=== PATIENT | female | born 1935 | race Caucasian/White ===

== ENCOUNTER 2016-09-28 08:44 | Inpatient (IN) | payer MEDICARE, OTHER ==
[~2016-09-28] VITALS: Ht 149.9 cm; Wt 55.3 kg
[2016-09-28] MEDS ORDERED: ALBUTEROL FS 2.5 MG/3 ML VIAL.NEB ONE (08:47)
[2016-09-28] MEDS ORDERED: LEVOFLOXACIN 750 MG /D5W 150ML 150 ML IV ONE ×2 (08:49→09:00)
[2016-09-28] MEDS ORDERED: IV SET PRIMARY PUMP SET 1 EA INFUS.SET MC ONE ×3 (08:49→10:27)
--- NOTE | 2016-09-28 08:54 | NUR ---
CALLED [facility] FOR [facility]
[2016-09-28] MEDS ORDERED: ALBUTEROL FS 2.5 MG/3 ML VIAL.NEB CONTNEB ONE (09:00)
[2016-09-28] MEDS ORDERED: VANCOMYCIN 1 GM in IV D5W 250 ML IV ONE (09:00)
--- NOTE | 2016-09-28 09:00 | NUR ---
PT REC'D TO ER C/O SOB VIA EMS RT AT BEDSIDE NON REBR APPLIED 02 SATS RA 96%. RESP 24. IV RT WRIST PRESENT 24G FLUSHED HEPLOCKED . LEFT AC 20G LABS DRAWNSENT TO LAB BLOOD CULTURES DRAWNS UA IN OUT CATH DONE SENT TO LAB
--- NOTE | 2016-09-28 09:15 | NUR ---
URINE SAMPLE SENT TO LAB
[2016-09-28 09:16] LABS: HEMATOCRIT 30 % (33-45); HEMOGLOBIN 9.8 g/dL (11.5-14.8); LYMPHOCYTES # (AUTO) 0.5 /CMM (0.8-4.8); MEAN CORPUSCULAR HEMOGLOBIN 32 PG (26.0-33.0); MEAN CORPUSCULAR HGB CONC 33 g/dl (31.0-36.0); MEAN CORPUSCULAR VOLUME 97 fL (82-100); MONOCYTES # (AUTO) 0.2 /CMM (0.1-1.30); MONOCYTES % (AUTO) 1.2 % (2.0-12.0); NEUTROPHILS # (AUTO) 12.2 /CMM (1.8-8.9); NEUTROPHILS % (AUTO) 94.8 % (43.0-81.0); PLATELET COUNT (AUTO) 158 /CMM (150-450); RDW COEFFICIENT OF VARIATION 13.5 (11.5-15.0); RED BLOOD CELL COUNT(AUTO) 3.08 MIL/uL (4.0-5.2); WHITE BLOOD COUNT (AUTO) 12.9 K/uL (4.3-11.0)
--- NOTE | 2016-09-28 09:16 | NUR ---
GREEN TIRE INSPECTOR AT BS
[2016-09-28] MEDS ORDERED: IV NS 0.9% 1,000 ML ONE (09:25)
--- NOTE | 2016-09-28 09:27 | NUR ---
PT GIVEN MEDS PER MD ORDER
[2016-09-28] MEDS ORDERED: IV NS 0.9% 1,000 ML BAG IV ONE (09:30)
[2016-09-28 09:36] LABS: TROPONIN I 0.328 ng/mL (0.00-0.056)
[2016-09-28] MEDS ORDERED: HYDR-552 PO (09:39)
[2016-09-28] MEDS ORDERED: BISA10SU8 RC (09:39)
[2016-09-28] MEDS ORDERED: MIRT15TA PO (09:39)
[2016-09-28] MEDS ORDERED: NA P133E RC (09:39)
[2016-09-28] MEDS ORDERED: CLON0.1T PO (09:39)
[2016-09-28] MEDS ORDERED: LISI10TA5 PO (09:39)
[2016-09-28] MEDS ORDERED: ACID1TAB12 PO (09:39)
[2016-09-28] MEDS ORDERED: METO25TA6 PO (09:39)
[2016-09-28] MEDS ORDERED: ACET-868 PO (09:39)
[2016-09-28] MEDS ORDERED: ALBU1.257 NEB (09:39)
[2016-09-28] MEDS ORDERED: QUET25TA PO (09:39)
[2016-09-28] MEDS ORDERED: TRAM50TA2 PO (09:39)
[2016-09-28] MEDS ORDERED: ASPI81TA2 PO (09:39)
[2016-09-28] MEDS ORDERED: MAGN400O6 PO (09:39)
[2016-09-28] MEDS ORDERED: PANT40TA2 PO (09:39)
[2016-09-28] MEDS ORDERED: SIMV40TA5 PO (09:39)
[2016-09-28 09:41] LABS: CALCIUM, SERUM 8.6 mg/dL (8.5-10.1); CARBON DIOXIDE 31 mmol/L (21-32); CHLORIDE 110 mmol/L (98-107); CREATININE 0.7 mg/dL (0.6-1.3); GLUCOSE 157 mg/dL (74-106); SODIUM SERUM 149 mmol/L (136-145); UREA NITROGEN, BLOOD 13 mg/dL (7-18)
[2016-09-28 09:42] LABS: POTASSIUM 2.4 mmol/L (3.5-5.1)
--- NOTE | 2016-09-28 09:45 | NUR ---
K 2.4 NOTIFIED
--- NOTE | 2016-09-28 09:50 | NUR ---
PAGED DR MARY ALEXANDER
[2016-09-28 10:16] LABS: B-TYPE NATRIURETIC PEPTIDE 31026 PG/ML (0-125)
[2016-09-28] MEDS ORDERED: POTASSIUM CL. PREMIX PERIPHER. 200 ML ONE (10:27)
[2016-09-28] MEDS ORDERED: POTASSIUM CHLORIDE 10 MEQ/50 ML PREMIXED IVPB FOR PERIPHERAL LINE IV ONE (10:30)
--- NOTE | 2016-09-28 10:39 | NUR ---
VANCO AND KCL 10 50 ML INFUSING TO THE FLOOR VSS PT STABLE VERY PLEASANT
--- NOTE | 2016-09-28 10:46 | NUR ---
[facility] ENDED SITE GOOD . VSS INFUSING KLC TO FLOOR . REPORT GIVEN TO FLOOR LUNGS STILL LILIANA WHEEZES NOTED . N/C 4L 96%
--- NOTE | 2016-09-28 10:54 | NUR ---
PT SENT TO [facility] STABLE
--- NOTE | 2016-09-28 11:15 | NUR ---
CANOE INSPECTOR FINALHEEL GOUGER NOTE PATIENT IS ALERT AND ORIENTED. VERY CONFUSED, EASILY REDIRECTABLE. NO PAIN AT THIS TIME. NO SOB OR DISTRESS NOTED. CALL LIGHT WITHIN REACH. SAFETY MEASURES IMPLEMENTED. IV INTACT AND PATENT NO REDNESS OR SWELLING NOTED. IV FLUIDS CURRENTLY RUNNING AT THIS TIME. ALL BELONGINGS DOCUMENTED AT BEDSIDE. FIJIAN SPEAKING. CURRENTLY NOTHING BY MOUTH. BED ALARM ON DUE TO FALL RISK. SIDERAILS UP X2, BED LOCKED IN LOWEST POSITION. AWAITING SWALLOW EVAL. TELE MONITOR-SR 81. WILL CONTINUE TO MONITOR
[2016-09-28] MEDS ORDERED: IV D5/0.45 NACL 1,000 ML IV PRN (11:57)
[2016-09-28] MEDS: HYDROCODONE/APAP 5/325MG 1 EACH TABLET PO SCH ×2 (12:00→17:23)
[2016-09-28] MEDS ORDERED: ONDANSETRON HCL/PF 4 MG/2 ML VIAL IVP PRN (12:00)
[2016-09-28] MEDS ORDERED: BISACODYL SUPP (10 MG) 10 MG/SUPP.RECT SUPP.RECT RC PRN ×2 (12:00)
[2016-09-28] MEDS ORDERED: ALBUTEROL HALF STRENGTH 1.25 MG/3 ML VIAL.NEB NEB PRN (12:00)
[2016-09-28] MEDS: ASPIRIN 81 MG TAB.CHEW PO SCH (12:00)
[2016-09-28] MEDS ORDERED: ACETAMINOPHEN 325 MG TABLET PO PRN (12:00)
[2016-09-28] MEDS ORDERED: Z GUARD REMEDY 2 OZ OINT TP PRN (12:00)
[2016-09-28] MEDS: METOPROLOL TARTRATE 25 MG TABLET PO SCH ×2 (12:00→21:00)
[2016-09-28] MEDS ORDERED: VANCOMYCIN 1 GM in IV D5W 250 ML IV SCH (12:00)
[2016-09-28] MEDS: ACIDOPHILUS/BULGARICUS 1 EACH TAB.CHEW PO SCH ×2 (12:00→16:02)
[2016-09-28] MEDS ORDERED: NA PHOS,M-B/NA PHOS,DI-BA 1 EA ENEMA RC PRN (12:00)
[2016-09-28] MEDS: LISINOPRIL (10MG) 10 MG TABLET PO SCH (12:00)
[2016-09-28] MEDS: PANTOPRAZOLE 40 MG TABLET.DR PO SCH (12:00)
[2016-09-28] MEDS ORDERED: CLONIDINE HCL 0.1 MG TABLET PO PRN (12:00)
[2016-09-28] MEDS ORDERED: MAGNESIUM HYDROXIDE 30 ML UDC PO PRN (12:00)
[2016-09-28] MEDS ORDERED: ASPIRIN 81 MG TAB.CHEW PO SCH (12:00)
[2016-09-28] MEDS ORDERED: PANTOPRAZOLE 40 MG TABLET.DR PO SCH (12:00)
[2016-09-28] MEDS ORDERED: MIRTAZAPINE 15 MG TABLET PO SCH (12:00)
[2016-09-28] MEDS ORDERED: ENOXAPARIN SODIUM 40 MG/0.4 ML DISP.SYRIN SQ SCH (12:00)
[2016-09-28] MEDS ORDERED: ACETAMINOPHEN 650 MG/SUPP.RECT RC PRN (12:00)
[2016-09-28] MEDS: POTASSIUM CHLORIDE 20 MEQ TAB.PRT.SR PO SCH ×5 (12:00→16:00)
[2016-09-28] MEDS ORDERED: FEE PK DOSING 1 MIN EA MC ONE (12:18)
[2016-09-28 12:54] LABS: MAGNESIUM 1.5 mg/dL (1.8-2.4); PHOSPHORUS 5.2 mg/dL (2.5-4.9)
[2016-09-28] MEDS ORDERED: PIPERACILLIN /TAZOBACTAM 4.5 G in IV D5W 50 ML IV SCH (13:00)
[2016-09-28 13:46] LABS: THYROID STIMULATING HORMONE 1.01 uIU/mL (0.358-3.74)
[2016-09-28] MEDS: IPRATROPIUM NEB FS 0.5 MG/2.5 ML AMPUL.NEB NEB PRN ×2 (14:17→21:02)
[2016-09-28] MEDS: ALBUTEROL HALF STRENGTH 1.25 MG/3 ML VIAL.NEB NEB SCH ×2 (14:18→21:02)
[2016-09-28] MEDS: PIPERACILLIN /TAZOBACTAM 3.375 G in IV D5W 50 ML IV SCH ×2 (14:27→17:25)
[2016-09-28] MEDS: ENOXAPARIN SODIUM 40 MG/0.4 ML DISP.SYRIN SQ SCH (14:31)
[2016-09-28] MEDS ORDERED: SECONDARY IV SET 1 EA INFUS.SET MC ONE (15:11)
[2016-09-28] MEDS: Magnesium 1GM/D5W 100ML PREMIX 100 ML IV SCH ×2 (15:52→16:45)
[2016-09-28 16:00] VITALS: BP 140/69
[2016-09-28] MEDS: FUROSEMIDE 40 MG/4 ML VIAL IV SCH (17:24)
--- NOTE | 2016-09-28 18:15 | NUR ---
COUNTY AGRICULTURAL AGENT CLOSING NOTE PATIENT IS ALERT AND CONFUSED. NO PAIN AT THIS TIME, NO FACIAL GRIMACING NOTED. SAFETY MEASURES IMPLEMENTED. SIDE RAILS UP x2. BED LOCKED IN LOWEST POSITION. CALL LIGHT WITHIN REACH AT ALL TIMES. ALL DUE MEDICATIONS GIVEN ORDERED. CURRENTLY NPO, IV MEDICATIONS ONLY. IV INTACT AND PATENT NO REDNESS OR SWELLING NOTED. THAI SPEAKING. WILL ENDORSE TO NET WPF DEVELOPER NURSE
[2016-09-28 20:00] VITALS: BP 134/72
[2016-09-28] MEDS ORDERED: METOPROLOL TARTRATE 25 MG TABLET PO SCH (21:00)
[2016-09-28] MEDS: SIMVASTATIN 40 MG TABLET PO SCH (22:00)
[2016-09-28] MEDS ORDERED: SIMVASTATIN 40 MG TABLET PO SCH (22:00)
[2016-09-28] MEDS: QUETIAPINE FUMARATE 25 MG TABLET PO SCH (22:00)
[2016-09-28] MEDS: MIRTAZAPINE 15 MG TABLET PO SCH (22:00)
[2016-09-28] MEDS ORDERED: QUETIAPINE FUMARATE 25 MG TABLET PO SCH (22:00)
[2016-09-28 23:55] VITALS: BP 137/69
[2016-09-29] MEDS: FUROSEMIDE 40 MG/4 ML VIAL IV SCH ×3 (01:13→11:45)
[2016-09-29] MEDS: PIPERACILLIN /TAZOBACTAM 3.375 G in IV D5W 50 ML IV SCH ×5 (01:13→23:45)
[2016-09-29] MEDS: VANCOMYCIN 0.75 GM in IV D5W 250 ML IV SCH ×2 (03:28→20:58)
[2016-09-29 04:37] VITALS: BP 155/78
[2016-09-29] MEDS: HYDROCODONE/APAP 5/325MG 1 EACH TABLET PO SCH ×5 (06:00→23:48)
[2016-09-29 06:46] LABS: EOSINOPHILS % (AUTO) 0.1 % (0.0-6.0); HEMATOCRIT 29 % (33-45); HEMOGLOBIN 9.7 g/dL (11.5-14.8); LYMPHOCYTES # (AUTO) 0.7 /CMM (0.8-4.8); LYMPHOCYTES % (AUTO) 5.8 % (20.0-44.0); MEAN CORPUSCULAR HEMOGLOBIN 33 PG (26.0-33.0); MEAN CORPUSCULAR HGB CONC 33 g/dl (31.0-36.0); MEAN CORPUSCULAR VOLUME 98 fL (82-100); MONOCYTES # (AUTO) 0.4 /CMM (0.1-1.30); MONOCYTES % (AUTO) 3.1 % (2.0-12.0); NEUTROPHILS # (AUTO) 11.6 /CMM (1.8-8.9); PLATELET COUNT (AUTO) 155 /CMM (150-450); RDW COEFFICIENT OF VARIATION 13.6 (11.5-15.0); RED BLOOD CELL COUNT(AUTO) 2.98 MIL/uL (4.0-5.2); WHITE BLOOD COUNT (AUTO) 12.7 K/uL (4.3-11.0)
--- NOTE | 2016-09-29 07:10 | NUR ---
RECEIVED PT LAYING IN BED, ALERT BUT CONFUSED. NO SIGNS OR DISTRESS OR DISCOMFORT. IV ON R WRIST INTACT AND PATENT, SALINE LOCKED. BED IS IN LOW AND LOCKED POSITION, SIDE RAILS UP X2, AND CALL LIGHT IS IN REACH. WILL CONTINUE TO MONITOR.
[2016-09-29 07:12] LABS: ALANINE AMINOTRANSFERASE 21 U/L (12-78); ALBUMIN 3.1 g/dL (3.4-5.0); ALKALINE PHOSPHATASE 50 U/L (46-116); ASPARTATE AMINOTRANSFERASE 26 U/L (15-37); BILIRUBIN,TOTAL 0.7 mg/dL (0.2-1.0); CALCIUM, SERUM 8.6 mg/dL (8.5-10.1); CARBON DIOXIDE 31 mmol/L (21-32); CHLORIDE 109 mmol/L (98-107); CREATININE 0.9 mg/dL (0.6-1.3); GLUCOSE 112 mg/dL (74-106); MAGNESIUM 1.8 mg/dL (1.8-2.4); SODIUM SERUM 148 mmol/L (136-145); TOTAL PROTEIN, SERUM 6.2 g/dL (6.4-8.2); UREA NITROGEN, BLOOD 15 mg/dL (7-18)
[2016-09-29 07:22] LABS: TROPONIN I 0.345 ng/mL (0.00-0.056)
[2016-09-29 07:28] LABS: POTASSIUM 2.3 mmol/L (3.5-5.1)
[2016-09-29 07:29] LABS: CHOLESTEROL 141 mg/dL (<200); HDL CHOLESTEROL 44 mg/dL (40-60); LDL 65 mg/dL (0-99); THYROID STIMULATING HORMONE 1.247 uIU/mL (0.358-3.74); TRIGLYCERIDES 139 mg/dL (30-150)
[2016-09-29 07:30] VITALS: BP 129/72
[2016-09-29] MEDS: PANTOPRAZOLE 40 MG TABLET.DR PO SCH (07:30)
[2016-09-29 08:00] VITALS: BP 129/72
[2016-09-29] MEDS: IPRATROPIUM NEB FS 0.5 MG/2.5 ML AMPUL.NEB NEB PRN (08:03)
[2016-09-29] MEDS: ALBUTEROL HALF STRENGTH 1.25 MG/3 ML VIAL.NEB NEB SCH ×2 (08:03→19:47)
[2016-09-29] MEDS: ASPIRIN 81 MG TAB.CHEW PO SCH (09:00)
[2016-09-29] MEDS: LISINOPRIL (10MG) 10 MG TABLET PO SCH (09:00)
[2016-09-29] MEDS ORDERED: PANTOPRAZOLE 40 MG VIAL IV SCH (09:00)
[2016-09-29] MEDS: ACIDOPHILUS/BULGARICUS 1 EACH TAB.CHEW PO SCH ×2 (09:00→17:30)
[2016-09-29] MEDS: METOPROLOL TARTRATE 25 MG TABLET PO SCH ×2 (09:00→21:02)
[2016-09-29] MEDS ORDERED: ASPIRIN 81 MG TAB.CHEW PO SCH (09:00)
--- NOTE | 2016-09-29 09:08 | NUR ---
LOW POTASSIUM 2.[address] MARY HAY ORDERED TO GIVE 60MEQ IV POTASSIUM AND REPEAT LEVEL.
[2016-09-29] MEDS: ENOXAPARIN SODIUM 40 MG/0.4 ML DISP.SYRIN SQ SCH (09:11)
[2016-09-29] MEDS ORDERED: IV SET PRIMARY PUMP SET 1 EA INFUS.SET MC ONE (09:49)
[2016-09-29] MEDS ORDERED: IV NS 0.9% 250 ML IV ONE ×2 (09:49→23:07)
[2016-09-29] MEDS: POTASSIUM CL. PREMIX PERIPHER. 50 ML IV SCH ×8 (09:58→23:59)
--- NOTE | 2016-09-29 11:25 | NUR ---
WOUND CARE CONSULT: PT PRESENTS WITH INCONTINENCE. PT MOVES ABOUT IN BED. TRAN SCORE CURRENTLY 13. PT ON JALEESA ISOFLEX LOW AIRLOSS BED. ALL SKIN PROTECTION MEASURES IN PLACE. DISCUSSED WITH NURSING STAFF. WILL SEE PRN. BRITTON IN AGREEMENT WITH PLAN OF CARE. Addendum: 09/29/16 at 1127 by GARY CANAS WNDNU Amended: Links added.
--- NOTE | 2016-09-29 11:42 | NUR ---
PT SEEN BY SANDEE ORTEGA RECOMMENDS PUREE DIET WITH THIN LIQUIDS.
[2016-09-29 16:00] VITALS: BP 127/61
--- NOTE | 2016-09-29 19:06 | NUR ---
PT IS IN SEMIFOWLERS POSITION IN BED, AWAKE. PT HAS NO SIGNS OF PAIN OR DISTRESS. IV ON RFA IS PATENT AND INTACT. ALL MEDS WERE GIVEN ORDERED. BED IS IN LOW AND LOCKED POSITION, SIDE RAILS UP X2 AND CALL LIGHT IS IN REACH. WILL ENDORSE TO CUSTOMS AGENT RN FOR CONTINUITY OF CARE.
--- NOTE | 2016-09-29 19:30 | NUR ---
RN NOTES RECEIVED PATIENT IN BED AWAKE, CONFUSED. NO ACUTE DISTRESS NOTED. NO SIGNS OF PAIN NOTED. IV SITE PATENT, INTACT; FLUSHED. ASPIRATION PRECAUTION MAINTAINED. ON LOW BED WITH BILATERAL UPPER SIDE RAILS UP. CALL LIGHT WITHIN EASY REACH. WILL CONTINUE TO MONITOR.
[2016-09-29 20:00] VITALS: BP_SYST 120; BP_SYST 142; BP_DIAS 68; BP_DIAS 74
[2016-09-29] MEDS ORDERED: SECONDARY IV SET 1 EA INFUS.SET MC ONE (20:49)
[2016-09-29] MEDS: SIMVASTATIN 40 MG TABLET PO SCH (21:03)
[2016-09-29] MEDS: MIRTAZAPINE 15 MG TABLET PO SCH (21:03)
[2016-09-29] MEDS: QUETIAPINE FUMARATE 25 MG TABLET PO SCH (21:04)
[2016-09-29] MEDS ORDERED: POTASSIUM CL. PREMIX PERIPHER. 100 ML ONE (22:05)
[2016-09-30] MEDS ORDERED: POTASSIUM CL. PREMIX PERIPHER. 100 ML ONE (00:27)
[2016-09-30] MEDS: POTASSIUM CL. PREMIX PERIPHER. 50 ML IV SCH ×8 (01:04→20:46)
[2016-09-30] MEDS: HYDROCODONE/APAP 5/325MG 1 EACH TABLET PO SCH ×3 (05:10→19:00)
[2016-09-30] MEDS: PIPERACILLIN /TAZOBACTAM 3.375 G in IV D5W 50 ML IV SCH ×3 (05:11→19:00)
--- NOTE | 2016-09-30 06:06 | NUR ---
PATIENT SLEEP, EASILY AROUSABLE. RESPIRATIONS EVEN. NO SIGNS OF PAIN NOTED. DUE MEDS GIVEN WITH NO ASE NOTED. NEEDS ATTENDED. SAFETY PRECAUTIONS AND COMFORT MEASURES IN PLACE. WILL GIVE REPORT TO DAY SHIFT FOR CONTINUITY OF CARE.
[2016-09-30 06:45] LABS: BASOPHILS % (AUTO) 0.3 % (0.0-2.0); EOSINOPHILS % (AUTO) 0.2 % (0.0-6.0); HEMATOCRIT 28 % (33-45); HEMOGLOBIN 9.3 g/dL (11.5-14.8); LYMPHOCYTES # (AUTO) 1.1 /CMM (0.8-4.8); LYMPHOCYTES % (AUTO) 10.1 % (20.0-44.0); MEAN CORPUSCULAR HEMOGLOBIN 32 PG (26.0-33.0); MEAN CORPUSCULAR HGB CONC 33 g/dl (31.0-36.0); MEAN CORPUSCULAR VOLUME 97 fL (82-100); MONOCYTES # (AUTO) 0.4 /CMM (0.1-1.30); MONOCYTES % (AUTO) 4.2 % (2.0-12.0); NEUTROPHILS # (AUTO) 8.9 /CMM (1.8-8.9); NEUTROPHILS % (AUTO) 85.2 % (43.0-81.0); PLATELET COUNT (AUTO) 159 /CMM (150-450); RDW COEFFICIENT OF VARIATION 13.7 (11.5-15.0); RED BLOOD CELL COUNT(AUTO) 2.88 MIL/uL (4.0-5.2); WHITE BLOOD COUNT (AUTO) 10.4 K/uL (4.3-11.0)
[2016-09-30 07:01] LABS: ALANINE AMINOTRANSFERASE 25 U/L (12-78); ALKALINE PHOSPHATASE 46 U/L (46-116); ASPARTATE AMINOTRANSFERASE 27 U/L (15-37); BILIRUBIN,TOTAL 0.7 mg/dL (0.2-1.0); CALCIUM, SERUM 8.4 mg/dL (8.5-10.1); CARBON DIOXIDE 29 mmol/L (21-32); CHLORIDE 109 mmol/L (98-107); CREATININE 1.4 mg/dL (0.6-1.3); GLUCOSE 111 mg/dL (74-106); MAGNESIUM 1.7 mg/dL (1.8-2.4); PHOSPHORUS 2.5 mg/dL (2.5-4.9); POTASSIUM 3.1 mmol/L (3.5-5.1); SODIUM SERUM 146 mmol/L (136-145); TOTAL PROTEIN, SERUM 6.1 g/dL (6.4-8.2); UREA NITROGEN, BLOOD 23 mg/dL (7-18)
[2016-09-30 07:02] LABS: TROPONIN I 0.199 ng/mL (0.00-0.056)
--- NOTE | 2016-09-30 07:15 | NUR ---
RECEIVED PT IN BED, AWAKE AND ALERT. PT SHOWS NO SIGNS OF RESPIRATORY DISTRESS OR PAIN. IV ON L WRIST INTACT AND PATENT. BED IS IN LOW AND LOCKED POSITION, SIDE RAILS UP X3, CALL LIGHT IS IN REACH, AND BED ALARM IS ON. WILL CONTINUE TO MONITOR.
[2016-09-30] MEDS: ALBUTEROL HALF STRENGTH 1.25 MG/3 ML VIAL.NEB NEB SCH ×2 (07:50→20:07)
[2016-09-30] MEDS: IPRATROPIUM NEB FS 0.5 MG/2.5 ML AMPUL.NEB NEB PRN (07:50)
[2016-09-30 08:00] VITALS: BP 163/90
[2016-09-30] MEDS: ACIDOPHILUS/BULGARICUS 1 EACH TAB.CHEW PO SCH ×2 (08:17→17:49)
[2016-09-30] MEDS: PANTOPRAZOLE 40 MG TABLET.DR PO SCH (08:17)
[2016-09-30] MEDS: METOPROLOL TARTRATE 25 MG TABLET PO SCH ×2 (08:17→21:03)
[2016-09-30] MEDS: LISINOPRIL (10MG) 10 MG TABLET PO SCH (08:17)
[2016-09-30] MEDS: ASPIRIN 81 MG TAB.CHEW PO SCH (08:17)
[2016-09-30] MEDS: ENOXAPARIN SODIUM 40 MG/0.4 ML DISP.SYRIN SQ SCH (08:18)
[2016-09-30] MEDS ORDERED: IV NS 0.9% 250 ML IV ONE (08:21)
[2016-09-30] MEDS ORDERED: SECONDARY IV SET 1 EA INFUS.SET MC ONE (08:21)
[2016-09-30] MEDS: Magnesium 1GM/D5W 100ML PREMIX 100 ML IV SCH ×2 (08:28→09:36)
[2016-09-30] MEDS: FUROSEMIDE 40 MG/4 ML VIAL IV SCH ×3 (15:22→23:09)
[2016-09-30 16:00] VITALS: BP 124/65
[2016-09-30] MEDS: VANCOMYCIN 0.75 GM in IV D5W 250 ML IV SCH (17:51)
--- NOTE | 2016-09-30 18:29 | NUR ---
PT IS IN BED, IN SEMI-FOWLERS POSITION. PT IS STABLE, NO SIGNS OF DISTRESS OR PAIN. IV ON RFA INTACT AND PATENT, IV ON LFA INTACT AND PATENT. ALL MEDS WERE GIVEN ORDERED. BED IS IN LOW AND LOCKED POSITION, SIDE RAILS UP, BED ALARM IS ON, AND CALL LIGHT IS IN REACH. WILL ENDORSE TO STAINED GLASS ARTIST RN FOR CONTINUITY OF CARE.
--- NOTE | 2016-09-30 19:30 | NUR ---
MS RN NOTES RECEIVED ON BED A/O X1,CONFUSED,WITH SITTER ORDER FOR SAFETY,DVT PUMP IN USED FOR DVT PROPHYLAXIS,SCORE >5.WITH K LEVEL OF 3.2,POTASSIUM IV INFUSING VIA IV PUMP.WILL CONTINUE TO MONITOR STATUS.
[2016-09-30 19:52] VITALS: BP 125/68
[2016-09-30 20:00] VITALS: BP 125/68
[2016-09-30] MEDS: TRAMADOL HCL 50 MG TABLET PO PRN (21:04)
--- NOTE | 2016-09-30 21:04 | NUR ---
MS RN NOTES PAIN MANAGEMENT C/O LEFT JAW PAIN DUE TO TOOTHACHE,MEDICATED WITH ULTRAM 50MG PO ORDERED.
[2016-09-30] MEDS: MIRTAZAPINE 15 MG TABLET PO SCH (21:58)
[2016-09-30] MEDS: QUETIAPINE FUMARATE 25 MG TABLET PO SCH (21:58)
[2016-09-30] MEDS: SIMVASTATIN 40 MG TABLET PO SCH (21:58)
--- NOTE | 2016-09-30 23:00 | NUR ---
MS RN NOTES BP 129/74,LAST DOSE OF LASIX 40MG IVP GIVEN.
--- NOTE | 2016-10-01 | NUR ---
MS RN NOTES AWAKE,RUBBING LEFT JAW,WITH FACIAL GRIMACE NOTED.MEDICATED WITH NORCO 5/325MG,1 TAB PO FOR MODERATE PAIN.
[2016-10-01] MEDS: HYDROCODONE/APAP 5/325MG 1 EACH TABLET PO SCH ×4 (00:08→18:11)
[2016-10-01] MEDS: VANCOMYCIN 0.75 GM in IV D5W 250 ML IV SCH (03:47)
[2016-10-01] MEDS: PIPERACILLIN /TAZOBACTAM 3.375 G in IV D5W 50 ML IV SCH ×5 (05:36→18:02)
--- NOTE | 2016-10-01 05:36 | NUR ---
MS RN NOTES PAIN MANAGEMENT C/O LEFT JAW PAIN 5/10 ON PAIN SCALE,DUE NORCO 5/325MG,1 TAB PO ADMINISTERED
--- NOTE | 2016-10-01 06:43 | NUR ---
MS RN NOTES SLEPT WITH INTERVALS.NO FALL,NO INJURY,SITTER AT BEDSIDE.WILL ENDORSE TO DAY NURSE FOR AMAN.
[2016-10-01 06:50] LABS: BASOPHILS % (AUTO) 0.5 % (0.0-2.0); EOSINOPHILS # (AUTO) 0.1 /CMM (0.0-0.7); EOSINOPHILS % (AUTO) 1.5 % (0.0-6.0); HEMATOCRIT 26 % (33-45); HEMOGLOBIN 8.4 g/dL (11.5-14.8); LYMPHOCYTES # (AUTO) 1.2 /CMM (0.8-4.8); LYMPHOCYTES % (AUTO) 17.4 % (20.0-44.0); MEAN CORPUSCULAR HEMOGLOBIN 32 PG (26.0-33.0); MEAN CORPUSCULAR HGB CONC 33 g/dl (31.0-36.0); MEAN CORPUSCULAR VOLUME 98 fL (82-100); MONOCYTES # (AUTO) 0.4 /CMM (0.1-1.30); MONOCYTES % (AUTO) 5.3 % (2.0-12.0); NEUTROPHILS # (AUTO) 5.1 /CMM (1.8-8.9); NEUTROPHILS % (AUTO) 75.3 % (43.0-81.0); PLATELET COUNT (AUTO) 151 /CMM (150-450); WHITE BLOOD COUNT (AUTO) 6.8 K/uL (4.3-11.0)
[2016-10-01 07:07] LABS: TROPONIN I 0.153 ng/mL (0.00-0.056)
[2016-10-01 07:14] LABS: ALANINE AMINOTRANSFERASE 20 U/L (12-78); ALBUMIN 2.7 g/dL (3.4-5.0); ALKALINE PHOSPHATASE 40 U/L (46-116); ASPARTATE AMINOTRANSFERASE 20 U/L (15-37); BILIRUBIN,TOTAL 0.5 mg/dL (0.2-1.0); CALCIUM, SERUM 8.3 mg/dL (8.5-10.1); CARBON DIOXIDE 29 mmol/L (21-32); CHLORIDE 109 mmol/L (98-107); CREATININE 1.7 mg/dL (0.6-1.3); GLUCOSE 113 mg/dL (74-106); MAGNESIUM 2.1 mg/dL (1.8-2.4); PHOSPHORUS 3.3 mg/dL (2.5-4.9); SODIUM SERUM 144 mmol/L (136-145); TOTAL PROTEIN, SERUM 5.7 g/dL (6.4-8.2); UREA NITROGEN, BLOOD 25 mg/dL (7-18)
[2016-10-01] MEDS: ENOXAPARIN SODIUM 40 MG/0.4 ML DISP.SYRIN SQ SCH (08:22)
[2016-10-01] MEDS: LISINOPRIL (10MG) 10 MG TABLET PO SCH (08:22)
[2016-10-01] MEDS: ACIDOPHILUS/BULGARICUS 1 EACH TAB.CHEW PO SCH ×2 (08:22→18:01)
[2016-10-01] MEDS: ASPIRIN 81 MG TAB.CHEW PO SCH (08:22)
[2016-10-01] MEDS: PANTOPRAZOLE 40 MG TABLET.DR PO SCH (08:23)
[2016-10-01 08:42] VITALS: BP 120/63
[2016-10-01] MEDS: ALBUTEROL HALF STRENGTH 1.25 MG/3 ML VIAL.NEB NEB SCH ×2 (08:51→19:54)
[2016-10-01] MEDS: IPRATROPIUM NEB FS 0.5 MG/2.5 ML AMPUL.NEB NEB PRN (08:51)
--- NOTE | 2016-10-01 08:55 | NUR ---
RN NOTES RECEIVED PT, PT IN BED AWAKE. A&OX1, PT CONFUSED. SITTER AT BEDSIDE. FLUID RESTRICTION IN PLACE. SALINE LOCK 22 GAUGE ON BOTH R AND LEFT FOREARM. WILL CONTINUE TO MONITOR AND MANAGE PAIN.
[2016-10-01] MEDS: METOPROLOL TARTRATE 25 MG TABLET PO SCH ×2 (09:00→21:56)
[2016-10-01] MEDS: POTASSIUM CL. PREMIX PERIPHER. 50 ML IV SCH ×6 (11:10→18:01)
[2016-10-01] MEDS: FUROSEMIDE 100 MG/10 ML VIAL IV SCH ×3 (14:04→22:30)
[2016-10-01] MEDS: TRAMADOL HCL 50 MG TABLET PO PRN (14:41)
--- NOTE | 2016-10-01 15:03 | NUR ---
RN NOTE AM CLONIDINE AND METOPROLOL HELD DUE TO LOW HR AND LOW BP.
[2016-10-01 16:00] VITALS: BP 138/71
[2016-10-01] MEDS ORDERED: VANCOMYCIN 0.75 GM in IV D5W 250 ML IV SCH ×2 (17:30→20:00)
--- NOTE | 2016-10-01 19:14 | NUR ---
RN CLOSING NOTE. PT IS IN BED AWAKE, A&O X 1. PT EXHIBITS CONFUSION, NON VERBAL. NO S/S OF DISTRESS OR PAIN. ALL PATIENT NEEDS MET. SAFETY MEASURES IN PLACE. CALL LIGHT WITHIN REACH. WILL ENDORSE TO STATE APPELLATE CLERK FOR AMAN.
[2016-10-01 20:00] VITALS: BP 126/64
--- NOTE | 2016-10-01 20:00 | NUR ---
MS CREATIVE SERVICES PRODUCER INITIAL NOTES RECEIVED PT IN BED AWAKE AND ALERT TO HER NAME, NOT IN ANY ACUTE DISTRESS NOTED AT THIS TIME. HEPLOCK PATENT AND INTACT ON HER BOTH ARMS. SHE ALSO WITH DVT PUMP ON BOTH LEGS NO EDEMA NOTED AT THIS TIME. POTASSIUM IVP BAG STILL INFUSING NO SIGNS OF DISCOMFORT NOTED. KEPT HER WARM AND COMFORTABLE AT ALL TIMES. SITTER AT THE BEDSIDE FOR SAFETY. WILL CONTINUE TO MONITOR.
[2016-10-01] MEDS: MIRTAZAPINE 15 MG TABLET PO SCH (21:56)
[2016-10-01] MEDS: SIMVASTATIN 40 MG TABLET PO SCH (21:56)
[2016-10-01] MEDS: QUETIAPINE FUMARATE 25 MG TABLET PO SCH (21:57)
--- NOTE | 2016-10-02 | NUR ---
MS RENEE NOTES PT RESTING AT THIS TIME. ZOSYN IVP BAG WILL HUNG BY ANOTHER NURSE. RESPIRATION EVEN AND NON-LABORED . KEPT HER COMFORTABLE AT ALL TIMES. WILL CONTINUE TO MONITOR.
[2016-10-02] MEDS: PIPERACILLIN /TAZOBACTAM 3.375 G in IV D5W 50 ML IV SCH ×4 (00:13→18:28)
[2016-10-02] MEDS: TRAMADOL HCL 50 MG TABLET PO PRN (04:30)
[2016-10-02] MEDS: HYDROCODONE/APAP 5/325MG 1 EACH TABLET PO SCH ×4 (06:00→18:00)
[2016-10-02] MEDS: PANTOPRAZOLE 40 MG TABLET.DR PO SCH (07:30)
--- NOTE | 2016-10-02 07:30 | NUR ---
MS EMERGENCY CARE TECH CLOSING NOTES PT BACK TO SLEEP AFTER UTRAM GIVEN ORDERED AND BED BATH RENDERED WITH THE HELPED OF JOSSUE GARCIA. ALL DUE MEDS GIVEN AND STABLE MARLENI THE NIGHT. NO AGITATION NOTED. SKIN TREATMENT ALSO DONE . REPOSITION HER FOR COMFORT. KEPT HER WARM AND COMFORTABLE AT ALL TIMES. SITTER REMAINS AT THE BEDSIDE. ENDORSE TO AM NURSE FOR CONTINUITY OF CARE.
--- NOTE | 2016-10-02 07:51 | NUR ---
MS RN OPENING NOTE PATIENT IS ALERT AND ORIENTED x1. NO PAIN AT THIS TIME. NO SOB OR DISTRESS NOTED. CONFUSED. SITTER AT BEDSIDE. IV INTACT AND PATENT NO REDNESS OR SWELLING NOTED. CALL LIGHT WITHIN REACH. SAFETY MEASURES IMPLEMENTED. NOT ABLE TO CLEARLY STATE PATIENT NEEDS. WILL CONTINUE TO MONITOR
[2016-10-02 07:58] LABS: BASOPHILS % (AUTO) 0.6 % (0.0-2.0); EOSINOPHILS # (AUTO) 0.2 /CMM (0.0-0.7); EOSINOPHILS % (AUTO) 2.8 % (0.0-6.0); HEMATOCRIT 25 % (33-45); HEMOGLOBIN 8.3 g/dL (11.5-14.8); LYMPHOCYTES # (AUTO) 0.9 /CMM (0.8-4.8); MEAN CORPUSCULAR HEMOGLOBIN 32 PG (26.0-33.0); MEAN CORPUSCULAR HGB CONC 33 g/dl (31.0-36.0); MEAN CORPUSCULAR VOLUME 98 fL (82-100); MONOCYTES # (AUTO) 0.5 /CMM (0.1-1.30); NEUTROPHILS # (AUTO) 4.5 /CMM (1.8-8.9); NEUTROPHILS % (AUTO) 74.6 % (43.0-81.0); PLATELET COUNT (AUTO) 142 /CMM (150-450); RDW COEFFICIENT OF VARIATION 13.7 (11.5-15.0); RED BLOOD CELL COUNT(AUTO) 2.57 MIL/uL (4.0-5.2); WHITE BLOOD COUNT (AUTO) 6.1 K/uL (4.3-11.0)
[2016-10-02 08:00] VITALS: BP 114/67
[2016-10-02] MEDS: ALBUTEROL HALF STRENGTH 1.25 MG/3 ML VIAL.NEB NEB SCH ×2 (08:06→19:47)
[2016-10-02 08:12] LABS: ALANINE AMINOTRANSFERASE 21 U/L (12-78); ALBUMIN 2.4 g/dL (3.4-5.0); ALKALINE PHOSPHATASE 39 U/L (46-116); ASPARTATE AMINOTRANSFERASE 19 U/L (15-37); BILIRUBIN,TOTAL 0.6 mg/dL (0.2-1.0); CARBON DIOXIDE 27 mmol/L (21-32); CHLORIDE 107 mmol/L (98-107); CREATININE 2.4 mg/dL (0.6-1.3); GLUCOSE 92 mg/dL (74-106); POTASSIUM 3.8 mmol/L (3.5-5.1); SODIUM SERUM 143 mmol/L (136-145); TOTAL PROTEIN, SERUM 5.2 g/dL (6.4-8.2); UREA NITROGEN, BLOOD 29 mg/dL (7-18)
[2016-10-02] MEDS: ENOXAPARIN SODIUM 40 MG/0.4 ML DISP.SYRIN SQ SCH (09:00)
[2016-10-02] MEDS: ASPIRIN 81 MG TAB.CHEW PO SCH (09:32)
[2016-10-02] MEDS: ACIDOPHILUS/BULGARICUS 1 EACH TAB.CHEW PO SCH ×2 (09:32→17:43)
[2016-10-02] MEDS: LISINOPRIL (10MG) 10 MG TABLET PO SCH (09:32)
[2016-10-02] MEDS: METOPROLOL TARTRATE 25 MG TABLET PO SCH ×2 (09:33→21:21)
[2016-10-02 16:00] VITALS: BP 107/62
[2016-10-02] MEDS ORDERED: VANCOMYCIN 0.75 GM in IV D5W 250 ML IV SCH ×4 (16:00)
--- NOTE | 2016-10-02 17:30 | NUR ---
MS RN NOTE ANDERSON CATHETER INSERTED. PATIENT TOLERATED WELL. NO COMPLICATIONS.
--- NOTE | 2016-10-02 18:51 | NUR ---
MS RN CLOSING NOTE PATIENT IS ALERT AND ORIENTED X1. CONFUSED. NO FACIAL GRIMACING NOTED FOR PAIN. NO SOB OR DISTRESS NOTED. CALL LIGHT WITHIN REACH AT ALL TIMES. SAFETY MEASURES IMPLEMENTED. IV INTACT AND PATENT NO REDNESS OR SWELLING NOTED. SITTER AT BEDSIDE. ANDERSON CATHETER INSERTED, PATIENT TOLERATED ANDERSON INSERTION WELL, NO DISTRESS NOTED. HELD LOVENOX PER MD DUE TO KIDNEY FUNCTION. IV FLUIDS RUNNING AT THIS TIME. WILL ENDORSE TO FACILITY MAINTENANCE MANAGER NURSE
--- NOTE | 2016-10-02 19:35 | NUR ---
MS/WIRER HELPER; RECEIVED PT 'S REPORTS FROM THE DAY SHIFT RN. PT AT THIS TIME. IN BED AWAKE, CONFUSED DOES NOT TALK WHEN ASKED. PT KEEP PICKING HER ARMS AND HEAD. BREATHING NONLABORED. NOT IN DISTRESS. HAS ANDERSON CATH INTACT WITH CLEAR YELLOW URINE 200 ML. HL INTACT ON RFA # 22 AND LFA # 22 ANGIO CATH INTACT. BED ON LOWER POSITION AND LOCKED FOR SAFETY. SIDE RAILS ARE UP FOR SAFETY. CALL LIGHT WITHIN REACH. SITTER PRESENT . CONTINUE TO MONITOR.
--- NOTE | 2016-10-02 20:00 | NUR ---
MS/SHARED SERVICES MANAGER; RT CAME TO GAVE BREATHING TREATMENT. O2 SAT ON RA DONE BY RT 99 %. BREATHING TREATMENT GIVEN BY THE RT.
[2016-10-02 20:45] VITALS: BP 122/63
--- NOTE | 2016-10-02 21:00 | NUR ---
MS/CATCHER PLUG; DUE PO MED CRUSHED AND MIXED WITH APPLE SAUCE GIVEN TOLERATED . SWALLOWED WITHOUT PROBLEM. ASPIRATION PRECAUTION OBSERVED.
--- NOTE | 2016-10-02 21:45 | NUR ---
MS/MCAT TUTOR; NOTED PT INCONTINENT WITH LARGE AMOUNT OF SOFT BROWN BM. LAMINE ANAL CARE RENDERED. REMEDY Z GUARD CREAM APPLIED TO SACRAL AND INNER BUTTOCKS. TURNED TO RT SIDE WITH PILLOWS TO BACK SUPPORT AND BOTH HEELS ARE OFFLOADED.
[2016-10-02] MEDS: MIRTAZAPINE 15 MG TABLET PO SCH (21:58)
[2016-10-02] MEDS: QUETIAPINE FUMARATE 25 MG TABLET PO SCH (21:59)
[2016-10-02] MEDS: SIMVASTATIN 40 MG TABLET PO SCH (22:00)
--- NOTE | 2016-10-02 22:00 | NUR ---
MS/COURT REGISTRY OFFICER; DUE PO MEDS GIVEN WITH APPLE SAUCE. ASPIRATION PRECAUTION OBSERVED.
[2016-10-03] VITALS: BP 119/59
--- NOTE | 2016-10-03 | NUR ---
MS/PAID INTERN; DUE PO MED GIVEN WITH APPLE SAUCE. ASPIRATION PRECAUTION OBSERVED. HOB ELEVATED.
[2016-10-03] MEDS: PIPERACILLIN /TAZOBACTAM 3.375 G in IV D5W 50 ML IV SCH ×4 (00:05→17:22)
[2016-10-03] MEDS: HYDROCODONE/APAP 5/325MG 1 EACH TABLET PO SCH ×4 (00:15→17:22)
--- NOTE | 2016-10-03 02:00 | NUR ---
MS/SERGEANT OF CORRECTIONS; SLEEPING AT THIS TIME. BREATHING NON LABORED.
--- NOTE | 2016-10-03 03:15 | NUR ---
MS/ASSISTANT PROGRAM MANAGER; AWAKE AT THIS TIME TRYING TO REMOVE HER GOWN , THROWING THE PILLOW TO THE FLOOR. AGITATED. NOTED ALSO INCONTINENT OF BM MOD. AMOUNT SOFT BROWN COLOR. LAMINE ANAL CARE RENDERED. DIAPER CHANGED. REPOSITIONED . CONTINUE TO MONITOR. SITTER PRESENT.
--- NOTE | 2016-10-03 03:45 | NUR ---
MS/DIRECTOR EXTERNAL COMMUNICATIONS; PT SLEEPING AT THIS TIME. BREATHING NON LABORED. PT REFUSED O2.
--- NOTE | 2016-10-03 04:00 | NUR ---
MS/FINAL INSPECTOR MOVEMENT ASSEMBLY; PT IS SLEEPING . BREATHING NON LABORED AND EVEN. SITTER PRESENT.
--- NOTE | 2016-10-03 06:00 | NUR ---
MS/HARVESTER OPERATOR; DUE MED PO NORCO PT REFUSED TO TAKE.
--- NOTE | 2016-10-03 06:40 | NUR ---
MS/REGISTRAR NURSES' REGISTRY; PT REFUSED BED BATH. REFUSED DVT PUMP TO LOWER LEGS. SLEPT AT GOOD INTERVALS. CONTINUE TO MONITOR. CALL LIGHT WITHIN REACH. SITTER PRESENT AT ALL TIMES. FC INTACT WITH CLEAR YELLOW URINE. WILL ENDORSE TO THE DAY SHIFT NURSE.
--- NOTE | 2016-10-03 07:48 | NUR ---
MS RN OPENING NOTE PATIENT IS ALERT AND ORIENTED x1. CONFUSED. SITTER AT BEDSIDE. MUMBLES IN BULGARIAN, SOMETIMES RESPONDS. CALL LIGHT WITHIN REACH. SAFETY MEASURES IMPLEMENTED. PATIENT REFUSES DVT PUMPS, BECOMES COMBATIVE. IV INTACT AND PATENT NO REDNESS OR SWELLING NOTED. ANDERSON CATHETER INTACT, NO SEDIMENT NOTED. WOUND TREATMENT TO BE DONE. WILL CONTINUE TO MONITOR
[2016-10-03 08:00] VITALS: BP 128/61
[2016-10-03 08:11] LABS: BASOPHILS % (AUTO) 0.4 % (0.0-2.0); EOSINOPHILS # (AUTO) 0.1 /CMM (0.0-0.7); EOSINOPHILS % (AUTO) 2.8 % (0.0-6.0); HEMATOCRIT 28 % (33-45); HEMOGLOBIN 9.5 g/dL (11.5-14.8); LYMPHOCYTES % (AUTO) 18.8 % (20.0-44.0); MEAN CORPUSCULAR HEMOGLOBIN 32 PG (26.0-33.0); MEAN CORPUSCULAR HGB CONC 33 g/dl (31.0-36.0); MEAN CORPUSCULAR VOLUME 97 fL (82-100); MONOCYTES # (AUTO) 0.3 /CMM (0.1-1.30); MONOCYTES % (AUTO) 6.3 % (2.0-12.0); NEUTROPHILS # (AUTO) 3.7 /CMM (1.8-8.9); NEUTROPHILS % (AUTO) 71.7 % (43.0-81.0); PLATELET COUNT (AUTO) 169 /CMM (150-450); RDW COEFFICIENT OF VARIATION 13.7 (11.5-15.0); RED BLOOD CELL COUNT(AUTO) 2.93 MIL/uL (4.0-5.2); WHITE BLOOD COUNT (AUTO) 5.2 K/uL (4.3-11.0)
[2016-10-03] MEDS: ALBUTEROL HALF STRENGTH 1.25 MG/3 ML VIAL.NEB NEB SCH ×2 (08:18→19:31)
[2016-10-03] MEDS: ACIDOPHILUS/BULGARICUS 1 EACH TAB.CHEW PO SCH ×2 (08:22→16:31)
[2016-10-03] MEDS: PANTOPRAZOLE 40 MG TABLET.DR PO SCH (08:30)
[2016-10-03] MEDS: ASPIRIN 81 MG TAB.CHEW PO SCH (08:30)
[2016-10-03] MEDS: METOPROLOL TARTRATE 25 MG TABLET PO SCH ×2 (08:34→21:02)
--- NOTE | 2016-10-03 08:37 | NUR ---
WOUND CARE CONSULT/FOLLOW UP: PT SEEN FOR RED RASH TO BUTTOCKS WITH SOME SKIN IRRITATION WHICH IS MOISTURE RELATED. PT HAS BLANCHING REDNESS TO SACRAL AREA. RECOMMENDATIONS MADE FOR RASH AND SKIN PROTECTION. DISCUSSED WITH NURSING STAFF. PT TO BE TURNED AND REPOSITIONED EVERY 2 HRS PT CONDITION PERMITS, HEELS FLOATED. SKIN TO BE KEPT CLEAN AND DRY. PT NOTED TO BE INCONTINENT OF LOOSE STOOLS AND PT NOTED TO BE UNCOOPERATIVE AT TIMES. WILL SEE PRN. IN AGREEMENT WITH PLAN OF CARE. Addendum: 10/03/16 at 0840 by GARY CANAS WNDNU Amended: Links added.
[2016-10-03 08:39] LABS: ALANINE AMINOTRANSFERASE 14 U/L (12-78); ALBUMIN 2.6 g/dL (3.4-5.0); ALKALINE PHOSPHATASE 48 U/L (46-116); ASPARTATE AMINOTRANSFERASE 23 U/L (15-37); BILIRUBIN,TOTAL 0.6 mg/dL (0.2-1.0); CALCIUM, SERUM 8.8 mg/dL (8.5-10.1); CARBON DIOXIDE 30 mmol/L (21-32); CHLORIDE 102 mmol/L (98-107); CREATININE 1.9 mg/dL (0.6-1.3); GLUCOSE 88 mg/dL (74-106); MAGNESIUM 1.5 mg/dL (1.8-2.4); PHOSPHORUS 5.7 mg/dL (2.5-4.9); SODIUM SERUM 135 mmol/L (136-145); TOTAL PROTEIN, SERUM 5.7 g/dL (6.4-8.2); UREA NITROGEN, BLOOD 27 mg/dL (7-18)
[2016-10-03] MEDS: ENOXAPARIN SODIUM 30 MG/0.3 ML DISP.SYRIN SQ SCH (09:00)
--- NOTE | 2016-10-03 09:00 | NUR ---
MS RN NOTE NOTIFIED BY LAB THAT PATIENT'S POTASSIUM WAS 2.4. NOTIFIED DR. RODAS, ORDERED 80 MEQ PO. ORDERS NOTED AND CARRIED OUT.
[2016-10-03 09:09] LABS: POTASSIUM 2.4 mmol/L (3.5-5.1)
[2016-10-03] MEDS ORDERED: Magnesium 1GM/D5W 100ML PREMIX 100 ML IV SCH (10:00)
[2016-10-03] MEDS ORDERED: POTASSIUM CHLORIDE 20 MEQ TAB.PRT.SR PO ONE ×3 (10:00→12:00)
[2016-10-03] MEDS ORDERED: POTASSIUM CHLORIDE 20 MEQ TAB.PRT.SR PO SCH (10:00)
[2016-10-03] MEDS: CLOTRIMAZOLE 1% 15 GM TUBE TP SCH ×2 (11:06→16:32)
[2016-10-03 16:00] VITALS: BP 118/69
--- NOTE | 2016-10-03 18:38 | NUR ---
MS RN CLOSING NOTE PATIENT IS ALERT AND ORIENTED x1. NO FACIAL GRIMACING NOTED FOR PAIN. CONFUSED, NOT ABLE TO COMMUNICATE NEEDS. SITTER AT BEDSIDE. IV INTACT AND PATENT NO REDNESS OR SWELLING NOTED. CALL LIGHT WITHIN REACH AT ALL TIMES. SAFETY MEASURES IMPLEMENTED. ALL DUE MEDICATIONS GIVEN ORDERED. ANDERSON CATHETER IN PLACE, NO SEDIMENT NOTED. WILL ENDORSE TO FLOUR INSPECTOR NURSE
[2016-10-03 20:00] VITALS: BP 125/93
[2016-10-03 20:57] VITALS: BP 125/93
[2016-10-03] MEDS: QUETIAPINE FUMARATE 25 MG TABLET PO SCH (21:01)
[2016-10-03] MEDS: SIMVASTATIN 40 MG TABLET PO SCH (21:02)
[2016-10-03] MEDS: MIRTAZAPINE 15 MG TABLET PO SCH (21:02)
--- NOTE | 2016-10-03 21:30 | NUR ---
MS RN OPENING NOTE RECEIVED IN BED. PATIENT IS ALERT AND ORIENTED x1. CONFUSED. SITTER AT BEDSIDE. NO SOB. RESPIRATION EVEN AND UNLABORED. NO ACUTE DISTRESS NOTED. SAFETY MEASURES IMPLEMENTED. PATIENT REFUSES DVT PUMPS. IV INTACT AND PATENT NO REDNESS OR SWELLING NOTED. ANDERSON CATHETER INTACT, CALL LIGHT WITHIN REACH. WILL CONTINUE TO MONITOR FOR SAFETY.
[2016-10-04] MEDS: PIPERACILLIN /TAZOBACTAM 3.375 G in IV D5W 50 ML IV SCH ×4 (00:41→17:49)
[2016-10-04] MEDS: HYDROCODONE/APAP 5/325MG 1 EACH TABLET PO SCH ×4 (00:41→17:50)
--- NOTE | 2016-10-04 06:09 | NUR ---
MS RN CLOSING NOTE PATIENT IS ALERT AND ORIENTED x1. CONFUSED. SITTER AT BEDSIDE. IV INTACT AND PATENT. NO REDNESS OR SWELLING NOTED. CALL LIGHT WITHIN REACH AT ALL TIMES. SAFETY MEASURES IMPLEMENTED. ANDERSON CATHETER IN PLACE, NO SEDIMENT NOTED. BED IN LOW AND LOCKED POSITION. SIDERAILS UPX2. CALL LIGHT WITHIN REACH. WILL ENDORSE TO NEXT SHIFT NURSE FOR CONTINUITY OF CARE.
[2016-10-04] MEDS: ALBUTEROL HALF STRENGTH 1.25 MG/3 ML VIAL.NEB NEB SCH ×2 (07:50→19:25)
--- NOTE | 2016-10-04 07:53 | NUR ---
RN OPENING NOTE PATIENT IS AWAKE RESTING IN BED. PATIENT IS ALERT AND ORIENTED x1. CONFUSED. SITTER AT BEDSIDE. NO S/S OF RESPIRATORY DISTRESS, SOB. SAFETY MEASURES IMPLEMENTED. IV INTACT AND PATENT NO REDNESS OR SWELLING NOTED. ANDERSON CATHETER INTACT, CALL LIGHT WITHIN REACH. BED IN THE LOWEST POSITION WITH SIDE RAILS UP X2. WILL CONTINUE TO MONITOR AND ASSESS PATIENT.
[2016-10-04 08:00] VITALS: BP 122/46
[2016-10-04 08:41] LABS: ALANINE AMINOTRANSFERASE 17 U/L (12-78); ALBUMIN 2.4 g/dL (3.4-5.0); ALKALINE PHOSPHATASE 43 U/L (46-116); ASPARTATE AMINOTRANSFERASE 21 U/L (15-37); BILIRUBIN,TOTAL 0.5 mg/dL (0.2-1.0); CALCIUM, SERUM 8.3 mg/dL (8.5-10.1); CARBON DIOXIDE 28 mmol/L (21-32); CHLORIDE 108 mmol/L (98-107); CREATININE 1.2 mg/dL (0.6-1.3); GLUCOSE 121 mg/dL (74-106); SODIUM SERUM 147 mmol/L (136-145); TOTAL PROTEIN, SERUM 5.4 g/dL (6.4-8.2); UREA NITROGEN, BLOOD 21 mg/dL (7-18)
[2016-10-04] MEDS: ASPIRIN 81 MG TAB.CHEW PO SCH (08:47)
[2016-10-04 08:48] LABS: POTASSIUM 2.5 mmol/L (3.5-5.1)
[2016-10-04] MEDS: ACIDOPHILUS/BULGARICUS 1 EACH TAB.CHEW PO SCH ×2 (08:48→17:24)
[2016-10-04] MEDS: PANTOPRAZOLE 40 MG TABLET.DR PO SCH (08:48)
[2016-10-04] MEDS: METOPROLOL TARTRATE 25 MG TABLET PO SCH (08:57)
[2016-10-04] MEDS ORDERED: POTASSIUM CHLORIDE 20 MEQ TAB.PRT.SR PO SCH (09:00)
[2016-10-04] MEDS: ENOXAPARIN SODIUM 30 MG/0.3 ML DISP.SYRIN SQ SCH (09:00)
--- NOTE | 2016-10-04 09:00 | NUR ---
HELD LOPRESSOR DUE TO PATIENT DIASTOLIC PRESSURE 46. WILL CONTINUE TO MONITOR AND ASSESS PATIENT.
[2016-10-04] MEDS: Magnesium 1GM/D5W 100ML PREMIX 100 ML IV SCH ×4 (09:21→13:01)
[2016-10-04] MEDS ORDERED: POTASSIUM CHLORIDE 20 MEQ TAB.PRT.SR PO ONE (09:30)
[2016-10-04] MEDS ORDERED: POTASSIUM CL. PREMIX PERIPHER. 50 ML IV SCH (09:30)
[2016-10-04] MEDS: POTASSIUM CHLORIDE 20 MEQ TAB.PRT.SR PO SCH ×4 (10:36→13:00)
[2016-10-04] MEDS: CLOTRIMAZOLE 1% 15 GM TUBE TP SCH ×2 (10:39→17:25)
--- NOTE | 2016-10-04 12:16 | NUR ---
PATIENT SLEEPING QUIETLY IN BED. NORCO HELD AT THIS TIME. PATIENT APPEARS TO SHOW NO S/S OF DISTRESS. SHOWS NO S/S OF PAIN. WILL CONTINUE TO MONITOR PATIENT.
[2016-10-04] MEDS ORDERED: Magnesium 1GM/D5W 100ML PREMIX 100 ML IV SCH (15:30)
--- NOTE | 2016-10-04 15:50 | NUR ---
CALLED PHARMACY TO REQUEST FOR FINAL DOSE OF MAGNESIUM. CALIN TIMED OUT LAST DOSE OF MAGNESIUM. ADDITIONAL ORDER PLACED BY PHARMACY TO PULL LAST MAGNESIUM.
[2016-10-04 16:00] VITALS: BP 110/57
--- NOTE | 2016-10-04 17:11 | NUR ---
LABS REDRAWN FOR K+ AND MG. LABS RETURNED NORMAL WITH K+ 3.[address] RODAS NOTIFIED OF IMPROVEMENT. WILL CONTINUE TO MONITOR PATIENT.
[2016-10-04 17:30] LABS: MAGNESIUM 2.4 mg/dL (1.8-2.4); POTASSIUM 3.5 mmol/L (3.5-5.1)
[2016-10-04] MEDS ORDERED: FURO-145 PO (17:48)
[2016-10-04] MEDS ORDERED: ALBUTEROL HALF STRENGTH 1.25 MG/3 ML VIAL.NEB ONE (19:16)
--- NOTE | 2016-10-04 19:30 | NUR ---
MS/RN NOTES PT RECEIVED IN BED, SITTER AT BEDSIDE. ON ROOM AIR, NO SOB OR DISTRESS NOTED. BREATHING EVEN AND UNLABORED. IV TO LEFT HAND IN PLACE AND TO BE REMOVED UPON DISCHARGE. ANDERSON IN PLACE AND DRAINING WELL. NO FACIAL GRIMACING OR S/S OF PAIN NOTED. MAG AND POTASSIUM REPLACED TODAY. PER DAY SHIFT RN, REPORT WAS GIVEN TO GARETT ONEILL NURSE FROM [facility]. PICTURES TAKEN AND DISCHARGE PAPERWORK PREPARED. WILL CONTINUE TO MONITOR
--- NOTE | 2016-10-04 19:50 | NUR ---
RN CLOSING NOTE PATIENT IS ALERT AND ORIENTED x1. PATIENT IS CONFUSED. SITTER AT BEDSIDE. IV ON THE LEFT AND RIGHT FOREARM BOTH INFILTRATE. NEW LINE PLACED ON LEFT HAND 22 G. NEW IV INTACT AND PATENT. NO REDNESS OR SWELLING NOTED. CALL LIGHT WITHIN REACH AT ALL TIMES. SAFETY MEASURES IMPLEMENTED. ANDERSON CATHETER IN PLACE, NO SEDIMENT NOTED. BED IN LOWEST POSITION AND LOCKED POSITION. SIDERAILS UP X2. CALL LIGHT WITHIN REACH. WILL ENDORSE TO NEXT SHIFT NURSE FOR CONTINUITY OF CARE.
[2016-10-04 20:00] VITALS: BP 94/47
--- NOTE | 2016-10-04 20:21 | NUR ---
MS/RN NOTES PT DISCHARGED WITH EMT VIA GURNEY TO [facility] IN STABLE CONDITION. IV TO LEFT HAND REMOVED. BELONGINGS AND DISCHARGE PAPERWORK SENT WITH PATIENT.
[2016-10-05] MEDS ORDERED: ALBUTEROL HALF STRENGTH 1.25 MG/3 ML VIAL.NEB ONE (06:58)
== END 2016-10-04 20:25 | DRG 871 ==
LOC: ER 08:45 → TELE 09:59 → MED 09-29 07:57
DX: A41.9 Sepsis, unspecified organism (principal); J69.0 Pneumonitis due to inhalation of food and vomit; J96.01 Acute respiratory failure with hypoxia; I50.33 Acute on chronic diastolic (congestive) heart failure; G92 Toxic encephalopathy; I21.4 Non-ST elevation (NSTEMI) myocardial infarction; I13.0 Hypertensive heart and chronic kidney disease with heart failure and stage 1 through stage 4 chronic kidney disease, or unspecified chronic kidney disease; N17.9 Acute kidney failure, unspecified; D64.9 Anemia, unspecified; E78.5 Hyperlipidemia, unspecified; E87.6 Hypokalemia; F03.90 Unspecified dementia, unspecified severity, without behavioral disturbance, psychotic disturbance, mood disturbance, and anxiety; F20.9 Schizophrenia, unspecified; I25.10 Atherosclerotic heart disease of native coronary artery without angina pectoris; I25.2 Old myocardial infarction; K21.9 Gastro-esophageal reflux disease without esophagitis; J44.9 Chronic obstructive pulmonary disease, unspecified; M47.816 Spondylosis without myelopathy or radiculopathy, lumbar region; K59.00 Constipation, unspecified; N13.9 Obstructive and reflux uropathy, unspecified; N18.9 Chronic kidney disease, unspecified; Z87.442 Personal history of urinary calculi; Z79.899 Other long term (current) drug therapy; Z79.82 Long term (current) use of aspirin
CPT/HCPCS: 36415; 71010-TC; 80048-TC; 80053-TC; 80061-TC; 80202-TC; 82306; 82728-TC; 83540-TC; 83605-TC; 83735-TC; 83880; 84100-TC; 84132-TC; 84439-TC; 84443-TC; 84484-TC; 85025-TC; 87040-TC; 87081-TC; 92521; 93307-TC; 94799-TC; A4606; J1650; J1940; J1956; J2543; J3370; J3475; J3480; J7030; J7050; J7060; Z7610

== ENCOUNTER 2019-08-03 12:17 | Inpatient (IN) | payer MEDICARE, OTHER ==
[~2019-08-03] VITALS: Ht 165.1 cm; Wt 55.8 kg
[2019-08-03] VITALS (23 sets, daily range): BP systolic 77–116; BP diastolic 39–61
[~2019-08-03 12:17] MED LIST: ACET-868 PO; ACID1TAB12 PO; ALBU1.257 NEB; ASPI-1169 PO; BISA10SU8 RC; CLON0.1T PO; FURO-145 PO; HYDR-4384 PO; LISI10TA5 PO; MAGN400O6 PO; METO25TA6 PO; MIRT15TA PO; NA P133E RC; PANT40TA2 PO; QUET25TA PO; SIMV-49 PO; TRAM50TA2 PO
--- NOTE | 2019-08-03 12:20 | NUR ---
PT BIBPA FROM SNF C/O FEVER AND LOW BP STARTED THIS MORNING PER EMS, PT IS AAOX0, NOTED RESPIRATORY DISTRESS, HOOKED TO O2 VIA NC AT 4 LPM AND GRINDING SUPERVISOR, KEPT RESTED AND COMFORTABLE, WILL CONTINUE TO MONITOR.
--- NOTE | 2019-08-03 12:45 | NUR ---
IV LINE ESTABLISHED BLOOD DRAWN AND SENT TO LAB.
[2019-08-03] MEDS ORDERED: ACETAMINOPHEN 650 MG/SUPP.RECT RC ONE ×2 (12:49→13:30)
--- NOTE | 2019-08-03 12:50 | NUR ---
URINE SPECIMEN COLLECTED VIA ANDERSON CATH AND SENT TO LAB.
[2019-08-03] MEDS ORDERED: VANCOMYCIN HCL 1 GM in IV D5W 260 ML IV ONE (13:00)
[2019-08-03] MEDS ORDERED: PIPERACILLIN /TAZOBACTAM 3.375 G in IV D5W 50 ML IV ONE (13:00)
[2019-08-03] MEDS ORDERED: IV NS 0.9% 500 ML BAG IV ONE ×2 (13:00→16:30)
[2019-08-03 13:13] LABS: BASOPHILS % (AUTO) 0.3 % (0.0-2.0); MONOCYTES # (AUTO) 0.3 /CMM (0.1-1.30); PLATELET COUNT (AUTO) 93 /CMM (150-450)
[2019-08-03 13:16] LABS: EOSINOPHILS % (AUTO) 0.1 % (0.0-6.0); HEMATOCRIT 33 % (33-45); HEMOGLOBIN 10.7 g/dL (11.5-14.8); LYMPHOCYTES # (AUTO) 0.5 /CMM (0.8-4.8); MEAN CORPUSCULAR HGB CONC 33 g/dl (31.0-36.0); MEAN CORPUSCULAR VOLUME 97 fL (82-100); MONOCYTES % (AUTO) 2.2 % (2.0-12.0); NEUTROPHILS # (AUTO) 10.8 /CMM (1.8-8.9); NEUTROPHILS % (AUTO) 93.4 % (43.0-81.0); RED BLOOD CELL COUNT(AUTO) 3.35 MIL/uL (4.0-5.2); WHITE BLOOD COUNT (AUTO) 11.6 K/uL (4.3-11.0)
[2019-08-03 13:20] LABS: BILIRUBIN,URINE Negative (NEGATIVE); BLOOD, URINE Negative Ery/uL (NEGATIVE); COLOR,URINE Yellow (YELLOW); KETONES,URINE Trace (NEGATIVE); LEUKOCYTE ESTERASE ,URINE Trace (NEGATIVE); NITRITE, URINE Negative (NEGATIVE); PROTEIN,URINE 100 mg/dl (NEGATIVE); UGLUCOSE Negative (NEGATIVE)
[2019-08-03 13:22] LABS: APPEARANCE,URINE SLIGHTLY CLOUDY (CLEAR)
[2019-08-03 13:23] LABS: CALCIUM, SERUM 8.6 mg/dL (8.5-10.1); CARBON DIOXIDE 16 mmol/L (21-32); CHLORIDE 103 mmol/L (98-107); CREATININE 2.8 mg/dL (0.6-1.3); GLUCOSE 128 mg/dL (74-106); POTASSIUM 3.2 mmol/L (3.5-5.1); SODIUM SERUM 138 mmol/L (136-145); UREA NITROGEN, BLOOD 45 mg/dL (7-18)
[2019-08-03 13:26] LABS: BACTERIA,URINE Many /HPF (None Seen); RBC,URINE 0-1 /HPF (0-2); SQUAMOUS EPITHELIAL CELL,UR Few /HPF (None Seen)
[2019-08-03] MEDS ORDERED: IV NS 0.9% 1,000 ML IV ONE (13:30)
[2019-08-03] MEDS ORDERED: IV NS 0.9% 1,000 ML BAG IV ONE (13:30)
[2019-08-03 13:36] LABS: ALANINE AMINOTRANSFERASE 53 U/L (12-78); ALBUMIN 3.1 g/dL (3.4-5.0); ALKALINE PHOSPHATASE 68 U/L (46-116); ASPARTATE AMINOTRANSFERASE 84 U/L (15-37); B-TYPE NATRIURETIC PEPTIDE 18613 PG/ML (0-125); BILIRUBIN,DIRECT 0.4 mg/dL (0.0-0.2); BILIRUBIN,TOTAL 1.2 mg/dL (0.2-1.0); TOTAL PROTEIN, SERUM 6.6 g/dL (6.4-8.2)
[2019-08-03 14:08] LABS: CREATINE KINASE, TOTAL 1565 U/L (26-192); FERRITIN 3038 ng/mL (8-388)
[2019-08-03 14:09] LABS: BAND % (MANUAL) 26 % (0.0-5.0); LYMPHOCYTES % (MANUAL) 1 % (16-48); MONOCYTES % (MANUAL) 3 % (0-11.0); MYELOCYTES % 1 % (0-0); NEUTROPHILS % (MANUAL) 69 (42-76)
[2019-08-03] MEDS ORDERED: HALO5TAB PO (14:15)
[2019-08-03] MEDS ORDERED: CHOL200026 PO (14:15)
[2019-08-03] MEDS ORDERED: OMEG1CAP55 PO (14:15)
[2019-08-03] MEDS ORDERED: MULT-439 PO (14:15)
[2019-08-03] MEDS ORDERED: CYAN-51 PO (14:15)
[2019-08-03] MEDS ORDERED: MAG-55 PO (14:15)
[2019-08-03] MEDS ORDERED: MELA3TAB41 PO (14:15)
[2019-08-03] MEDS ORDERED: DOCU50LI PO (14:15)
[2019-08-03] MEDS ORDERED: GABA300C PO (14:15)
[2019-08-03] MEDS ORDERED: MEGE40TA5 PO (14:15)
[2019-08-03 14:18] LABS: C-REACTIVE PROTEIN 38.4 mg/dL (0.0-0.9)
[2019-08-03 14:19] LABS: D-DIMER > 35.20 mg/L(FEU (0.17-0.50)
--- NOTE | 2019-08-03 14:19 | NUR ---
MED RECON DONE, PT CAME FROM [facility] [phone] ROOM 18-B, PCP NANCY WASHINGTON.
--- NOTE | 2019-08-03 14:46 | NUR ---
NURSING SUP GAVE BED 103.
--- NOTE | 2019-08-03 14:56 | NUR ---
RT CALLED FOR ABG
--- NOTE | 2019-08-03 14:58 | NUR ---
SAMIA ALEXANDER AT BEDSIDE
[2019-08-03 15:17] LABS: ABG BASE EXCESS -11.8 mmol/L; ABG OXYGEN SATURATION 97.4 % (92.0-98.5); ABG PCO2 18.6 mmHg (35.0-45.0); ABG PH 7.397 (7.350-7.450); ABG PO2 117.7 mmHg (75.0-100.0); COHb 0.3 % (0.5-1.5); MetHb 0.4 % (0.0-1.5); O2Hb 96.7 % (94.0-97.0); SITE, ABG Right Radial; VENT MODE, BG 2L NASAL CANULA 28%
--- NOTE | 2019-08-03 15:25 | NUR ---
VERBAL ORDER RECEIVED FROM SAMIA ALEXANDER TO CHECK LACTIC ACID
[2019-08-03] MEDS ORDERED: MAG HYDROX/AL HYDROX/SIMETH 30 ML UDC PO PRN (15:30)
[2019-08-03] MEDS ORDERED: ONDANSETRON HCL/PF 4 MG/2 ML VIAL IVP PRN (15:30)
[2019-08-03] MEDS ORDERED: MAGNESIUM HYDROXIDE 30 ML UDC PO PRN (15:30)
--- NOTE | 2019-08-03 15:40 | NUR ---
PT BACK FROM CT ON [facility]
--- NOTE | 2019-08-03 15:43 | NUR ---
CALLED RN SUP FOR ICU BED
--- NOTE | 2019-08-03 15:44 | NUR ---
NURSING SUP GAVE ICU 252.
--- NOTE | 2019-08-03 15:53 | NUR ---
PHARMACY PICKING TECH AT BEDSIDE FOR LACTIC ACID REDRAW
--- NOTE | 2019-08-03 15:55 | NUR ---
PT NOTED WITH BP 61/40. MD MADE AWARE, VERBAL ORDER RECEIVED TO GIVE 1L NS BOLUS X 1
--- NOTE | 2019-08-03 16:15 | NUR ---
REPORT GIVEN TO RAQUEL LOYOLA FOR AMAN.
--- NOTE | 2019-08-03 16:35 | NUR ---
RECTAL TEMP 101.6
--- NOTE | 2019-08-03 16:51 | NUR ---
[facility]/ [facility] AND RN AT BEDSIDE W/ ACLS PROTOCOL. NAD NOTED DURING TRANSPORT
--- NOTE | 2019-08-03 17:00 | NUR ---
SAMPLE CASE PORTER INITIAL NOTE RECEIVED PATIENT [facility]IA [facility], NON-VERBAL, RESPONDS TO PAINFUL STIMULI. PULLS AWAY FROM PAIN. NO DISTRESS NOTED. ON 2LPM VIA NC. ON TELE MONITOR SINUS TACH. SKIN WARM AND DRY TOUCH. PER REPORT PATIENT HAD 4 EPISODES OF DIARRHEA, UPON ARRIVAL PATIENT NOTED WITH MODERATE AMOUNT OF SOFT BROWN STOOL. F/C PATENT AND DRAINING BY GRAVITY. PERIPHERAL LINES PATENT AND INTACT. SKIN ASSESSMENT DONE. BELONGINGS IN ICU VAULT. HOB ELEVATED. SIDE RAILS UP AND LOCKED. BED KEPT AT LOWEST POSITION. CALL LIGHT KEPT WITHIN EASY REACH. WILL CONTINUE TO MONITOR.
[2019-08-03] MEDS ORDERED: FEE PK DOSING 1 MIN EA MC ONE (17:05)
[2019-08-03] MEDS: IV NS 0.9% 1,000 ML IV PRN (17:07)
--- NOTE | 2019-08-03 17:34 | NUR ---
WASTE BALER NOTE RELAYED TO BENJAMIN PATIENT BP 82/41 WITH ORDERS TO START LEVO PRN TO KEEP MAP >65 AND RELAYED 2ND BAG OF NS IS FINISHED WITH ORDERS FOR STAT LACTIC ACID. WILL CONTINUE TO MONITOR.
[2019-08-03] MEDS ORDERED: PIPERACILLIN /TAZOBACTAM 3.375 G in IV D5W 50 ML IV SCH (18:00)
[2019-08-03] MEDS: NOREPINEPHRINE 8 MG in IV NS 0.9% 242 ML IV PRN (18:27)
[2019-08-03] MEDS ORDERED: BISACODYL SUPP (10 MG) 10 MG/SUPP.RECT SUPP.RECT RC ONE (18:30)
--- NOTE | 2019-08-03 19:30 | NUR ---
LAYER OUT NOTE RECEIVED PATIENT IN BED NON VERBAL, RESPONSIVE TO VERBAL AND TACTILE STIMULI. BREATHING NORMAL NO SOB. RESPIRATION EVEN NON LABORED. BED SIDE MONITOR SR. IV SITES LAC, RAC PATENT FLUSHED WELL. F/C INTACT DARNING WELL WITH GRAVITY. VITAL SIGNS WNL. SAFETY MEASURES IN PLACE, BD IN LOW AND LOCKED POSITION. CALL LIGHT WITHIN REACH. WILL CONT TO MONITOR.
[2019-08-03] MEDS: PIPERACILLIN /TAZOBACTAM 2.25 G in IV D5W 50 ML IV SCH (20:02)
[2019-08-03] MEDS: Z GUARD REMEDY 2 OZ OINT TP SCH (20:06)
--- NOTE | 2019-08-03 22:21 | NUR ---
RECEIVED CALL FROM LAB WITH BLOOD CULTURE RESULTS- GRAM POSITIVE COCCI IN CHAINS SEEN ON GRAM STAIN. PATIENT IS ON ANTIBIOTIC THERAPY WILL RELAY TO MD. PATIENT IN STABLE CONDITION, NO S/S OF ACUTE DISTRESS NOTED.
[2019-08-04] VITALS (84 sets, daily range): BP systolic 78–146; BP diastolic 38–97
[2019-08-04] MEDS: NOREPINEPHRINE 8 MG in IV NS 0.9% 242 ML IV PRN ×2 (01:42→18:54)
[2019-08-04] MEDS: IV NS 0.9% 1,000 ML IV PRN ×3 (03:13→18:54)
[2019-08-04 04:27] LABS: BASOPHILS % (AUTO) 0.2 % (0.0-2.0); EOSINOPHILS % (AUTO) 0.3 % (0.0-6.0); HEMATOCRIT 31 % (33-45); HEMOGLOBIN 10.4 g/dL (11.5-14.8); LYMPHOCYTES # (AUTO) 0.4 /CMM (0.8-4.8); LYMPHOCYTES % (AUTO) 2.2 % (20.0-44.0); MEAN CORPUSCULAR HGB CONC 34 g/dl (31.0-36.0); MEAN CORPUSCULAR VOLUME 97 fL (82-100); MONOCYTES # (AUTO) 0.6 /CMM (0.1-1.30); MONOCYTES % (AUTO) 3.7 % (2.0-12.0); NEUTROPHILS # (AUTO) 16.3 /CMM (1.8-8.9); NEUTROPHILS % (AUTO) 93.6 % (43.0-81.0); PLATELET COUNT (AUTO) 81 /CMM (150-450); RED BLOOD CELL COUNT(AUTO) 3.14 MIL/uL (4.0-5.2); WHITE BLOOD COUNT (AUTO) 17.5 K/uL (4.3-11.0)
[2019-08-04 04:41] LABS: CALCIUM, SERUM 7.3 mg/dL (8.5-10.1); CARBON DIOXIDE 16 mmol/L (21-32); CHLORIDE 107 mmol/L (98-107); CREATININE 2.7 mg/dL (0.6-1.3); GLUCOSE 137 mg/dL (74-106); MAGNESIUM 1.6 mg/dL (1.8-2.4); PHOSPHORUS 6.2 mg/dL (2.5-4.9); POTASSIUM 3.5 mmol/L (3.5-5.1); SODIUM SERUM 140 mmol/L (136-145); UREA NITROGEN, BLOOD 57 mg/dL (7-18)
[2019-08-04 04:44] LABS: CHOLESTEROL 99 mg/dL (<200); CREATINE KINASE, TOTAL 1720 U/L (26-192); HDL CHOLESTEROL 11 mg/dL (40-60); LDL 12 mg/dL (0-99); THYROID STIMULATING HORMONE 2.094 uIU/mL (0.358-3.74); TRIGLYCERIDES 417 mg/dL (30-150)
[2019-08-04] MEDS: PIPERACILLIN /TAZOBACTAM 2.25 G in IV D5W 50 ML IV SCH ×3 (05:00→21:33)
[2019-08-04 05:08] LABS: LYMPHOCYTES % (MANUAL) 2 % (16-48); MONOCYTES % (MANUAL) 2 % (0-11.0)
[2019-08-04 05:12] LABS: BAND % (MANUAL) 31 % (0.0-5.0); NEUTROPHILS % (MANUAL) 65 (42-76)
--- NOTE | 2019-08-04 07:14 | NUR ---
VOLUNTEER MANAGER NOTES ENDORSE PATIENT TO DAY SHIFT NURSE, PATIENT RESTED COMFORTABLY IN BED. NO S/S OF DISTRESS NOTED. NO SIGNIFICANT CHANGES NOTED DURING SHIFT. ALL NEEDS ARE ATTENDED. KEPT CLEAN DRY AND COMFORTABLE. SAFETY MEASURES IN PLACE, BED IN LOW AND LOCKED POSITION. CALL LIGHT WITHIN REACH. ENDORSE PATIENT TO AM NURSE FOR AMAN.
--- NOTE | 2019-08-04 09:13 | NUR ---
TAILOR HELPER NOTE SEEN AND EXAMINED BY SAMIA ALEXANDER, PLAN FOR GALLBLADDER REMOVAL, HE WILL DISCUSS WITH SURGEON. PER SURGEON HIDA SCAN MUST BE DONE FIRST. NUCLEAR MEDICINE CALLED, PER NUC MEDICINE WAS NOT DONE DUE TO PATIENTS PENDING COVID RESULTS, BUT CALLED BACK AGAIN AND DECIDED THEY WILL DO IT ONCE CONSENT IS RECEIVED . TWO MESSAGES WERE LEFT TO DAUGHTER REGLA, PENDING CALL BACK. WILL CONTINUE OT MONITOR.
--- NOTE | 2019-08-04 09:44 | NUR ---
PIT FURNACE OPERATOR NOTE SEEN AND EXAMINED BY DR PEÑALOZA, UPDATES GIVEN, INFORMED DAUGHTER REGLA CAN NOT BE REACH FOR HIDA SCAN CONSENT. CONSENT SIGNED BY TWO PHYSICIANS DR PEÑALOZA AND DR GONZALEZ. ADRIANE ESCALANTE INFORMED REGARDING CONSENT, PER BORIS THEY WILL TAKE THE PATIENT BETWEEN AND , SAMIA ALEXANDER INFORMED.
[2019-08-04] MEDS: PANTOPRAZOLE 40 MG VIAL IV SCH (09:55)
[2019-08-04] MEDS: HYDROCORTISONE SOD SUCCINATE 100 MG/2 ML VIAL IV SCH ×3 (09:55→18:53)
[2019-08-04] MEDS: Z GUARD REMEDY 2 OZ OINT TP SCH ×2 (09:56→21:12)
[2019-08-04 10:32] LABS: ALBUMIN 2.3 g/dL (3.4-5.0); BILIRUBIN,DIRECT 0.5 mg/dL (0.0-0.2); TOTAL PROTEIN, SERUM 5.3 g/dL (6.4-8.2)
[2019-08-04 10:39] LABS: THYROID STIMULATING HORMONE 2.18 uIU/mL (0.358-3.74)
--- NOTE | 2019-08-04 13:27 | NUR ---
MANAGER CODE NOTE PATIENT BACK FROM HIDA SCAN.
[2019-08-04] MEDS ORDERED: BISACODYL SUPP (10 MG) 10 MG/SUPP.RECT SUPP.RECT RC PRN (14:30)
[2019-08-04 15:51] LABS: ABG BASE EXCESS -10.4 mmol/L; ABG OXYGEN SATURATION 95.5 % (92.0-98.5); ABG PCO2 23.5 mmHg (35.0-45.0); ABG PH 7.373 (7.350-7.450); ABG PO2 80.3 mmHg (75.0-100.0); AaDO2 91.6 mmHg; COHb 0.2 % (0.5-1.5); O2Hb 95.3 % (94.0-97.0); SITE, ABG Left Radial; VENT MODE, BG 2LNC
--- NOTE | 2019-08-04 16:06 | NUR ---
horticulture supervisor note seen by coral de jesus, per coral keep patient npo at this time, and surgeon will assess patient. abg relayed to dr leyva with nno
[2019-08-04] MEDS: GABAPENTIN 300 MG CAPSULE PO SCH (16:18)
[2019-08-04 16:19] LABS: APPEARANCE,URINE SL CLOUDY (CLEAR); BILIRUBIN,URINE NEGATIVE (NEGATIVE); BLOOD, URINE LARGE Ery/uL (NEGATIVE); COLOR,URINE DARK YELLO (YELLOW); KETONES,URINE NEGATIVE (NEGATIVE); LEUKOCYTE ESTERASE ,URINE NEGATIVE (NEGATIVE); NITRITE, URINE NEGATIVE (NEGATIVE); PH,URINE 5.5 (5.0-8.0); PROTEIN,URINE 30 mg/dl (NEGATIVE); UGLUCOSE NEGATIVE (NEGATIVE)
[2019-08-04 16:37] LABS: CREATININE, URINE 98.2 MG/DL (30.0-125.0); URINE TOTAL PROTEIN 141.6 mg/dL (0-11.9)
[2019-08-04 17:09] LABS: BACTERIA,URINE None seen /HPF (None Seen); EOSINOPHIL,URINE None Seen; SQUAMOUS EPITHELIAL CELL,UR Few /HPF (None Seen); WBC,URINE 0-2 /HPF (0-3)
--- NOTE | 2019-08-04 17:33 | NUR ---
EDGING CATCHER NOTE SEEN AND EXAMINED BY KAELA PEARSON FOR DR LINARES
--- NOTE | 2019-08-04 19:50 | NUR ---
RN OPENING NOTE PATIENT RESTING COMFORTABLY AT THIS TIME WITH HOB ELEVATED. PATIENT WAKES UP TO VERBAL STIMULI. ON O2 VIA NC AT 2 L/MIN. PT CURRENTLY NPO AT THIS TIME, ANDERSON CATH DRAINING URINE. IV TO LAC AND RAC PATENT AND INTACT FLUSHING WELL SIDE RAILS UP X [address] WILL CONTINUE TO MONITOR PT.
--- NOTE | 2019-08-04 20:00 | NUR ---
SVP CHIEF MARKETING OFFICER CLOSING NOTE PATIENT RESTING COMFORTABLY AT THIS TIME. PATIENT WAKES UP TO VERBAL STIMULI. IN NO RESPIRATORY DISTRESS NOTED, ON 2LPMO2 VIA NC. NPO AT THIS TIME, NO GT PER MD. KEPT CLEAN AND DRY. TURNED AND REPOSITIONED. ISOLATION PRECAUTIONS OBSERVED. HOB ELEVATED. SIDE RAILS UP AND LOCKED. PENDING PICC LINE PLACEMENT. CONTINUITY OF CARE ENDORSED TO PM NURSE.
--- NOTE | 2019-08-04 21:25 | NUR ---
RN NOTE CODING DIRECTOR AT BEDSIDE ATTEMPTING TO INSERT PICC LINE
--- NOTE | 2019-08-04 22:00 | NUR ---
RN NOTE CHEST XRAY ORDERED TO CHECK PLACEMENT.
[2019-08-05] VITALS (63 sets, daily range): BP systolic 101–159; BP diastolic 55–93
[2019-08-05 04:21] LABS: BASOPHILS % (AUTO) 0.1 % (0.0-2.0); EOSINOPHILS % (AUTO) 2.6 % (0.0-6.0); HEMATOCRIT 26 % (33-45); LYMPHOCYTES # (AUTO) 0.3 /CMM (0.8-4.8); LYMPHOCYTES % (AUTO) 3.1 % (20.0-44.0); MEAN CORPUSCULAR HGB CONC 35 g/dl (31.0-36.0); MEAN CORPUSCULAR VOLUME 96 fL (82-100); MONOCYTES # (AUTO) 0.4 /CMM (0.1-1.30); MONOCYTES % (AUTO) 4.3 % (2.0-12.0); NEUTROPHILS # (AUTO) 8.3 /CMM (1.8-8.9); NEUTROPHILS % (AUTO) 89.9 % (43.0-81.0); PLATELET COUNT (AUTO) 56 /CMM (150-450); RED BLOOD CELL COUNT(AUTO) 2.71 MIL/uL (4.0-5.2); WHITE BLOOD COUNT (AUTO) 9.3 K/uL (4.3-11.0)
[2019-08-05 04:32] LABS: CREATINE KINASE, TOTAL 674 U/L (26-192)
[2019-08-05 04:36] LABS: ALANINE AMINOTRANSFERASE 88 U/L (12-78); ALBUMIN 2.3 g/dL (3.4-5.0); ALKALINE PHOSPHATASE 64 U/L (46-116); ASPARTATE AMINOTRANSFERASE 123 U/L (15-37); CALCIUM, SERUM 7.8 mg/dL (8.5-10.1); CARBON DIOXIDE 16 mmol/L (21-32); CHLORIDE 113 mmol/L (98-107); CREATININE 1.6 mg/dL (0.6-1.3); GLUCOSE 107 mg/dL (74-106); MAGNESIUM 1.8 mg/dL (1.8-2.4); PHOSPHORUS 4.4 mg/dL (2.5-4.9); POTASSIUM 3.1 mmol/L (3.5-5.1); SODIUM SERUM 144 mmol/L (136-145); TOTAL PROTEIN, SERUM 5.5 g/dL (6.4-8.2); UREA NITROGEN, BLOOD 63 mg/dL (7-18)
[2019-08-05] MEDS: PIPERACILLIN /TAZOBACTAM 2.25 G in IV D5W 50 ML IV SCH (05:07)
[2019-08-05 05:32] LABS: LYMPHOCYTES % (MANUAL) 3 % (16-48); MONOCYTES % (MANUAL) 2 % (0-11.0); NEUTROPHILS % (MANUAL) 95 (42-76)
--- NOTE | 2019-08-05 07:25 | NUR ---
RN CLOSING NOTE PATIENT RESTING COMFORTABLY AT THIS TIME WITH HOB ELEVATED. ON O2 VIA NC AT 2 L/MIN PT IN NO RESPIRATORY DISTRESS, DENIES ANY PAIN. PT CURRENTLY NPO AT THIS TIME, ANDERSON CATH DRAINING URINE. IV TO LAC AND RAC PATENT AND INTACT FLUSHING. ILAN PICC PATENT AND INTACT. SIDE WELL SIDE RAILS UP X [address] ENDORSED TO AM RN FOR AMAN
[2019-08-05] MEDS: HYDROCORTISONE SOD SUCCINATE 100 MG/2 ML VIAL IV SCH ×3 (07:43→16:38)
[2019-08-05] MEDS: PANTOPRAZOLE 40 MG VIAL IV SCH (07:43)
[2019-08-05] MEDS: Z GUARD REMEDY 2 OZ OINT TP PRN (07:44)
--- NOTE | 2019-08-05 07:45 | NUR ---
CLIENT ADVISOR: per night nurse report: Levophed is off since , order for MRCP is active/consent will be sign by MDs, 1st covid result is negative, second is pending. Pt.is drowsy, Ox1, no pain now, abdomen is slightly tender with palpation, Afib 100-120, Levophed is off, R.PICC is without NS TKO, white port is occluded, O2sat. over 95% on 2L NC, no SOB, one BM now: no blood, no diarrhea, started NS tko via PICC, K3.1/will s/w
--- NOTE | 2019-08-05 07:46 | NUR ---
HOSPITAL ADMITTING CLERK: SR/ST on monitor
--- NOTE | 2019-08-05 08:09 | NUR ---
WOUND CARE CONSULT: PT PRESENTS WITH SACRAL INTACT DEEP TISSUE INJURY, PRESENT ON ADMISSION. RECOMMENDATIONS MADE FOR SKIN PROTECTION AND WOUND CARE. DISCUSSED WITH NURSING STAFF. FIRST STEP LOW AIRLOSS MATTRESS ORDERED. CURRENT TRAN SCORE IS 10. PT NOTED TO BE INCONTINENT OF STOOL. JUSTIN KIRKLAND NOTED. IN AGREEMENT WITH PLAN OF CARE. WILL SEE PRN. Addendum: 08/05/19 at 0811 by GARY CANAS WNDNU Amended: Links added.
--- NOTE | 2019-08-05 08:15 | NUR ---
WIRELESS NETWORK ENGINEER: LILI Camacho is in room, updated with pt.current status, VS, pressor off, I/O, BM (soft/w/o blood), O2sat., MRCP order is active/signed consent, second test for Covid was not ordered by LILI Camacho/will s/w charge nurse. W/c nurse evaluated pt/see new orders
[2019-08-05] MEDS ORDERED: Medication Not On Formulary EA (Omega-3 Acid Ethyl Esters (Lovaza) 1 GM) PO SCH (09:00)
[2019-08-05] MEDS: DOCUSATE SODIUM LIQ 100 MG/10 ML UDC PO SCH (09:19)
[2019-08-05] MEDS: MULTIVIT W/MINERALS 1 TAB TABLET PO SCH (09:19)
[2019-08-05] MEDS: ASPIRIN 81 MG TAB.CHEW PO SCH (09:19)
[2019-08-05] MEDS: GABAPENTIN 300 MG CAPSULE PO SCH ×3 (09:19→16:38)
[2019-08-05] MEDS: CYANOCOBALAMIN 500 MCG TABLET PO SCH (09:19)
[2019-08-05] MEDS: Z GUARD REMEDY 2 OZ OINT TP SCH ×2 (09:20→21:13)
[2019-08-05] MEDS: CHOLECALCIFEROL 1,000 UNIT TABLET (VIT D3) PO SCH (09:20)
--- NOTE | 2019-08-05 09:32 | NUR ---
RN DIALYSIS: got consent for MRCP from [place]/pt daughter. Charge nurse reevaluated reports: second test for covid was not taken
[2019-08-05] MEDS ORDERED: POTASSIUM CL. PREMIX PERIPHER. 50 ML IV SCH (09:58)
[2019-08-05] MEDS ORDERED: POTASSIUM CHLORIDE 20 MEQ TAB.PRT.SR PO SCH (10:00)
[2019-08-05] MEDS: IV NS 0.9% 1,000 ML IV PRN ×2 (10:13→23:51)
--- NOTE | 2019-08-05 10:47 | NUR ---
POLYSTYRENE MOLDING MACHINE TENDER: called to radiology dep., MRCP time 11.30, NPO status confirmed. HAILEY Grace updated with all above, ordered BCx2, changed Abtbx, spoke with : no second Coved test need. Pt.is drowsy/unable to swallow well/NPO status before MRCP, called LILI Camacho for change IV KCL replacement order
--- NOTE | 2019-08-05 11:00 | NUR ---
TABLE ASSEMBLER METAL: LILI Camacho said ok to change for IV KCl order f/u order, confirmed: ok change KCl PO replacement order for IV
[2019-08-05] MEDS: POTASSIUM CL. PREMIX PERIPHER. 50 ML IV SCH ×6 (11:32→17:26)
[2019-08-05] MEDS: MEROPENEM 500 MG in IV NS 0.9% 50 ML IV SCH ×2 (12:44→21:11)
--- NOTE | 2019-08-05 13:45 | NUR ---
JAVASCRIPT FRONT END DEVELOPER: OB stool sample taken
[2019-08-05] MEDS ORDERED: VANCOMYCIN 0.75 GM in IV D5W 250 ML IV SCH (14:00)
--- NOTE | 2019-08-05 14:00 | NUR ---
AUTO DAMAGE APPRAISER: MRCP done, pt is tolerated well, no c/o
--- NOTE | 2019-08-05 14:20 | NUR ---
LEHR STRIPPER: gorge blood sample for Coleen levelV
[2019-08-05] MEDS: SOD FERRIC GLUC 125 MG in IV NS 0.9% 100 ML IV SCH (14:59)
[2019-08-05 15:26] LABS: OCCULT BLOOD STOOL POSITIVE (NEGATIVE)
--- NOTE | 2019-08-05 15:50 | NUR ---
FERRYBOAT OPERATOR HELPER: pt.is more awake, Ox2, can follow simple commands, but still very weak, no any pain now, no c/o, SR/ST max 120, SBP over 90/below 160, O2sat. over 96%, no SOB/distress, can swallow ice chips/pills slowly&one by one, keep HOB over 45, abdomen: slightly tender/less since AM, BMx2: no blood/diarrhea, stool OB+, NPO status, all PM/skin/wound care/bedbath done, waiting I mattress, turned q2h
--- NOTE | 2019-08-05 19:00 | NUR ---
RN NOTES RECEIVED PATIENT AWAKE, A/OX1, CONFUSED, FOLLOWS SIMPLE COMMANDS AND ABLE TO MAKE NEEDS KNOWN VERBALLY. APPEARS WEAK. DENIES ANY PAIN AT THE MOMENT, HOWEVER NOTED WITH FACIAL GRIMACING AT TIMES. ON TELE MONITOR SINUS TACHY WITH HR 100'S. ON OXYGEN 2L VIA NC, TOLERATING WELL NO SOB OR RESPIRATORY DISTRESS NOTED. NPO STATUS NOTED. IV SITES ALL FLUSHING AND PATENT, SITES C/D/I, IVF RUNNING ORDERED, NO INFILTRATION NOTED. ANDERSON CATH INTACT AND DRAINING WELL. PATIENT ON DIAPER. SAFETY MEASURES IN PLACE; CALL LIGHT WITHIN REACH, SIDE RAILS UP X3, HOB ELEVATED, BED LOCKED AND IN LOW POSITION. WILL CONT TO MONITOR PT CLOSELY.
--- NOTE | 2019-08-05 20:41 | NUR ---
RN NOTES AT 1948: PATIENT SEEN BY DR. LINARES AT BEDSIDE AND STATED PATIENT DOES NOT NEED SURGERY AT THE MOMENT DUE TO PATIENT REALLY WEAK. MD ALSO ORDERED SOFT DIET, ADVANCE TOLERATED. WILL ATTEND TO ORDERS. PATIENT GIVEN WATER AND PUDDING, TOLERATED WELL, NO SOB OR RESPIRATORY DISTRESS NOTED. NO COUGHING NOTED. WILL CONT TO MONITOR PT CLOSELY.
--- NOTE | 2019-08-05 23:47 | NUR ---
RN NOTES PATIENT COMPLAINING OF NON RADIATING LEFT ARM SHARP PAIN 8/10 AND ASKING FOR PAIN MEDICATION. WILL ADMINISTER PRN PAIN MEDICATION.
[2019-08-05] MEDS: ACETAMINOPHEN 325 MG TABLET PO PRN (23:54)
[2019-08-06] VITALS (19 sets, daily range): BP systolic 101–154; BP diastolic 50–100
[2019-08-06 04:42] LABS: BASOPHILS % (AUTO) 0.2 % (0.0-2.0); EOSINOPHILS % (AUTO) 0.5 % (0.0-6.0); HEMATOCRIT 26 % (33-45); HEMOGLOBIN 8.7 g/dL (11.5-14.8); LYMPHOCYTES # (AUTO) 0.4 /CMM (0.8-4.8); LYMPHOCYTES % (AUTO) 2.8 % (20.0-44.0); MEAN CORPUSCULAR HGB CONC 33 g/dl (31.0-36.0); MEAN CORPUSCULAR VOLUME 96 fL (82-100); MONOCYTES # (AUTO) 0.5 /CMM (0.1-1.30); MONOCYTES % (AUTO) 3.6 % (2.0-12.0); NEUTROPHILS % (AUTO) 92.9 % (43.0-81.0); PLATELET COUNT (AUTO) 59 /CMM (150-450); RED BLOOD CELL COUNT(AUTO) 2.74 MIL/uL (4.0-5.2); WHITE BLOOD COUNT (AUTO) 12.9 K/uL (4.3-11.0)
[2019-08-06 05:01] LABS: BILIRUBIN,DIRECT 0.4 mg/dL (0.0-0.2); BILIRUBIN,TOTAL 1.3 mg/dL (0.2-1.0); CALCIUM, SERUM 8.3 mg/dL (8.5-10.1); CREATININE 0.9 mg/dL (0.6-1.3); PHOSPHORUS 1.9 mg/dL (2.5-4.9); POTASSIUM 3.4 mmol/L (3.5-5.1); TOTAL PROTEIN, SERUM 5.3 g/dL (6.4-8.2)
[2019-08-06 06:04] LABS: LYMPHOCYTES % (MANUAL) 3 % (16-48); MONOCYTES % (MANUAL) 3 % (0-11.0); NEUTROPHILS % (MANUAL) 94 (42-76)
--- NOTE | 2019-08-06 06:48 | NUR ---
RN CLOSING NOTES PATIENT SLEEPING IN BED, BUT EASY TO AROUSE, A/OX1, CONFUSED, FOLLOWS SIMPLE COMMANDS AND ABLE TO MAKE NEEDS KNOWN VERBALLY. STILL VERY WEAK. DENIES ANY PAIN AT THE MOMENT. ON TELE MONITOR SR-ST WITH HR 90'S-120'S, CURRENTLY 100BPM. ON OXYGEN 2L VIA NC, TOLERATING WELL NO SOB OR RESPIRATORY DISTRESS NOTED. IV SITES ALL FLUSHING AND PATENT, SITES C/D/I, IVF RUNNING ORDERED, NO INFILTRATION NOTED. ANDERSON CATH INTACT AND DRAINING WELL. PATIENT ON DIAPER. PATIENT HAD 4 LOOSE BOWEL MOVEMENTS. REPOSITIONED Q2H. ALL MD ORDERS ATTENDED, ALL NEEDS ANTICIPATED AND MET. KEPT PT CLEAN, DRY, AND COMFORTABLE. KCI MATTRESS STILL PENDING. SAFETY MEASURES MAINTAINED; CALL LIGHT WITHIN REACH, SIDE RAILS UP X3, HOB ELEVATED, BED LOCKED AND IN LOW POSITION. WILL CONT TO MONITOR PT CLOSELY. WILL ENDORSE TO AM RN FOR AMAN.
--- NOTE | 2019-08-06 07:40 | NUR ---
AIRVEYOR OPERATOR: pt.is A/Ox1, rest, still weak, confused/oriented for POC, can follow simple commands and say her needs, no pain now, no c/o now, O2sat. over 94% on 2L nc, no SOB, SR/St max 110, SBP over 100, BMx3 over night/no diarrhea, no blood, PICC: bhagat lumen occluded, white lumen resistance, still waiting KCI mattress
--- NOTE | 2019-08-06 07:51 | NUR ---
PROJECT FACILITATOR: supervisor coffee called, ordered: transfer to Tele
--- NOTE | 2019-08-06 08:09 | NUR ---
RECEIVED PATIENT FROM ICU. PATIENT AWAKE A/OX1 , ON 2L O2 SATURATING 97%.PATIENT HAS SACRAL DTI. ILAN PICC LINE FLUSHED, IV LINE LAC 20 G , FLUSHING WELL. DVT PUMPS IN PLACE. SPECIAL MATRASS ORDER PENDING. PATIENT HR 112-120'S AND ITS A BASE LINE. NO FEVER NOTED. VS ARE STABLE . WILL CONTINUE TO MONITOR
--- NOTE | 2019-08-06 08:10 | NUR ---
COMPUTER APPLICATIONS INSTRUCTOR: pt is transferred to [address], full report given for RAQUEL Elam
[2019-08-06] MEDS: Z GUARD REMEDY 2 OZ OINT TP SCH ×2 (09:00→21:41)
[2019-08-06] MEDS ORDERED: NEUTRA PHOS 1 POWD.PACKET PO SCH (09:30)
[2019-08-06] MEDS: MEROPENEM 500 MG in IV NS 0.9% 50 ML IV SCH ×2 (09:40→21:13)
[2019-08-06] MEDS: DOCUSATE SODIUM LIQ 100 MG/10 ML UDC PO SCH (09:46)
[2019-08-06] MEDS: CYANOCOBALAMIN 500 MCG TABLET PO SCH (09:47)
[2019-08-06] MEDS: GABAPENTIN 300 MG CAPSULE PO SCH ×3 (09:47→17:14)
[2019-08-06] MEDS: HYDROCORTISONE SOD SUCCINATE 100 MG/2 ML VIAL IV SCH ×3 (09:47→17:14)
[2019-08-06] MEDS: ASPIRIN 81 MG TAB.CHEW PO SCH (09:47)
[2019-08-06] MEDS: MULTIVIT W/MINERALS 1 TAB TABLET PO SCH (09:47)
[2019-08-06] MEDS: CHOLECALCIFEROL 1,000 UNIT TABLET (VIT D3) PO SCH (09:48)
[2019-08-06] MEDS ORDERED: POTASSIUM CHLORIDE 20 MEQ POWDER PACKET PO SCH (10:00)
[2019-08-06] MEDS: SUCRALFATE 1 G TABLET PO SCH ×3 (11:59→21:13)
[2019-08-06] MEDS ORDERED: POTASSIUM CHLORIDE 10 MEQ/50 ML PREMIXED IVPB FOR PERIPHERAL LINE IV ONE (14:00)
[2019-08-06] MEDS ORDERED: VANCOMYCIN 0.75 GM in IV D5W 250 ML IV SCH (14:00)
[2019-08-06] MEDS ORDERED: POTASSIUM CL. PREMIX PERIPHER. 50 ML IV SCH (14:00)
[2019-08-06] MEDS: SOD FERRIC GLUC 125 MG in IV NS 0.9% 100 ML IV SCH (15:18)
[2019-08-06] MEDS: PANTOPRAZOLE 40 MG VIAL IV SCH (17:13)
[2019-08-06] MEDS: Potassium Chloride 40 MEQ in IV NS 0.9% 1,000 ML IV PRN (17:18)
--- NOTE | 2019-08-06 19:12 | NUR ---
PATIENT SLEEPING IN BED, BUT EASY TO AROUSE, A/OX1, CONFUSED, ABLE TO MAKE NEEDS KNOWN VERBALLY. REMAINS VERY WEAK. DENIES ANY PAIN AT THE MOMENT. ON OXYGEN 2L VIA NC, TOLERATING WELL NO SOB OR RESPIRATORY DISTRESS NOTED. IV SITES ALL FLUSHING AND PATENT, SITES C/D/I, IVF RUNNING ORDERED. ANDERSON CATH INTACT AND DRAINING WELL. REPOSITIONED Q2H. NEEDS ATTENDED,KEPT PT CLEAN, DRY, AND COMFORTABLE.
--- NOTE | 2019-08-06 20:00 | NUR ---
RN NOTES ALERT AND ORIENTED X1, 2LPM VIA NC, NOT IN APPARENT PAIN, ASPIRATION PRECAUTION, HR > 100, ANDERSON CATHETER DRAINING ROSIBEL COLORED URINE, ILAN PICC LINE, INFUSING NS + KCL, REPOSITIONED FOR COMFORT
[2019-08-06] MEDS ORDERED: MEROPENEM 500 MG in IV NS 0.9% 50 ML IV SCH (21:00)
[2019-08-06] MEDS ORDERED: CEFAZOLIN 2 GM in IV D5W 100 ML IV SCH (21:00)
--- NOTE | 2019-08-06 21:11 | NUR ---
RN NOTES HR SUSTAINED AT > 100, EKG DONE, NOTIFIED DR. ESCALANTE, NEW ORDER OF 500 ML BOLUS X1, ORDER NOTED AND CARRIED OUT.
[2019-08-06] MEDS ORDERED: IV NS 0.9% 500 ML IV ONE (21:30)
[2019-08-06] MEDS: ACETAMINOPHEN 325 MG TABLET PO PRN (23:06)
--- NOTE | 2019-08-07 06:35 | NUR ---
RN NOTES ALERT AND AWAKE, 2LPM VIA NC, HR FROM 100 TO 120S, NOT IN APPARENT DISTRESS, BM X1, MERREM FOR UTI, NS + KCL 40 MEQ AT 100 ML/HR, MONITOR POTASSIUM LEVEL, AM LABS, FOLLOW UP BLOOD CULTURE RESULT, CLEARED BY DR. HAJI FOR EGD
[2019-08-07 06:51] LABS: BASOPHILS % (AUTO) 0.2 % (0.0-2.0); HEMATOCRIT 27 % (33-45); LYMPHOCYTES # (AUTO) 0.6 /CMM (0.8-4.8); LYMPHOCYTES % (AUTO) 4.9 % (20.0-44.0); MEAN CORPUSCULAR HGB CONC 34 g/dl (31.0-36.0); MEAN CORPUSCULAR VOLUME 96 fL (82-100); MONOCYTES # (AUTO) 0.7 /CMM (0.1-1.30); NEUTROPHILS # (AUTO) 10.4 /CMM (1.8-8.9); NEUTROPHILS % (AUTO) 88.9 % (43.0-81.0); PLATELET COUNT (AUTO) 67 /CMM (150-450); RED BLOOD CELL COUNT(AUTO) 2.81 MIL/uL (4.0-5.2); WHITE BLOOD COUNT (AUTO) 11.7 K/uL (4.3-11.0)
--- NOTE | 2019-08-07 07:30 | NUR ---
RN MS NOTES PT IN BED, RESTING, NON VERBAL, NO SIGN OF PAIN OR DISTRESS, IV FLUIDS INFUSING WELL, CALL LIGHT WITHIN REACH, ASSISTED WITH BREAKFAST, TOLERATES WELL, ASPIRATION PRECAUTIONS OBSERVED.
[2019-08-07 07:54] LABS: ALBUMIN 2.1 g/dL (3.4-5.0); BILIRUBIN,TOTAL 1.3 mg/dL (0.2-1.0); CALCIUM, SERUM 8.2 mg/dL (8.5-10.1); CREATININE 0.7 mg/dL (0.6-1.3); MAGNESIUM 1.7 mg/dL (1.8-2.4); PHOSPHORUS 2.1 mg/dL (2.5-4.9); POTASSIUM 2.9 mmol/L (3.5-5.1); TOTAL PROTEIN, SERUM 5.5 g/dL (6.4-8.2)
[2019-08-07 08:00] VITALS: BP 151/91
[2019-08-07] MEDS ORDERED: VANCOMYCIN 0.75 GM in IV D5W 250 ML IV SCH (08:00)
[2019-08-07 08:15] LABS: BAND % (MANUAL) 2 % (0.0-5.0); LYMPHOCYTES % (MANUAL) 8 % (16-48); MONOCYTES % (MANUAL) 3 % (0-11.0); MYELOCYTES % 1 % (0-0); NEUTROPHILS % (MANUAL) 86 (42-76)
[2019-08-07] MEDS: MEROPENEM 500 MG in IV NS 0.9% 50 ML IV SCH ×2 (08:52→21:20)
[2019-08-07] MEDS: DOCUSATE SODIUM LIQ 100 MG/10 ML UDC PO SCH (08:52)
[2019-08-07] MEDS: HYDROCORTISONE SOD SUCCINATE 100 MG/2 ML VIAL IV SCH ×2 (08:53→10:30)
[2019-08-07] MEDS: MULTIVIT W/MINERALS 1 TAB TABLET PO SCH (08:53)
[2019-08-07] MEDS: CHOLECALCIFEROL 1,000 UNIT TABLET (VIT D3) PO SCH (08:53)
[2019-08-07] MEDS: CYANOCOBALAMIN 500 MCG TABLET PO SCH (08:53)
[2019-08-07] MEDS: SUCRALFATE 1 G TABLET PO SCH ×4 (08:53→21:20)
[2019-08-07] MEDS: PANTOPRAZOLE 40 MG VIAL IV SCH ×2 (08:53→16:24)
[2019-08-07] MEDS: GABAPENTIN 300 MG CAPSULE PO SCH ×3 (08:53→16:24)
[2019-08-07] MEDS: ASPIRIN 81 MG TAB.CHEW PO SCH (08:53)
[2019-08-07] MEDS: Z GUARD REMEDY 2 OZ OINT TP SCH ×2 (08:54→21:20)
[2019-08-07] MEDS: POTASSIUM CHLORIDE 20 MEQ TAB.PRT.SR PO SCH ×4 (11:02→15:31)
[2019-08-07] MEDS: Magnesium 1GM/D5W 100ML PREMIX 100 ML IV SCH ×2 (11:02→12:45)
[2019-08-07] MEDS: Potassium Chloride 40 MEQ in IV NS 0.9% 1,000 ML IV PRN (11:06)
[2019-08-07] MEDS ORDERED: NEUTRA PHOS 1 POWD.PACKET PO ONE (11:30)
[2019-08-07] MEDS ORDERED: PROTHROMBIN COMPLEX CONCENTR IV PRN (15:41)
[2019-08-07] MEDS ORDERED: D5W IV PRN (15:41)
[2019-08-07 16:00] VITALS: BP 126/58
[2019-08-07] MEDS: POTASSIUM CL. PREMIX PERIPHER. 50 ML IV SCH ×2 (16:24→19:02)
[2019-08-07] MEDS: SOD FERRIC GLUC 125 MG in IV NS 0.9% 100 ML IV SCH (17:20)
--- NOTE | 2019-08-07 19:00 | NUR ---
RN MS NOTES PT IN BED, AWAKE, NO FACIAL GRIMACING OR MOANING, RESPIRATIONS NORMAL, NO SIGN OF PAIN, ASSISTED WITH MEALS, TOLERATES WELL, PM MEDS GIVEN, PM CARE PROVIDED, REPOSITIONED FOR COMFORT, ALL NEEDS ATTENDED.
[2019-08-07 19:30] VITALS: BP 144/77
--- NOTE | 2019-08-07 19:57 | NUR ---
MS RN NOTES PATIENT IN BED, AWAKE, ALERT AND ORIENTED X 1. BREATHING EVEN AND UNLABORED ON 2L NC SHOWS NO SIGNS OF ACUTE RESPIRATORY DISTRESS. NO ACUTE PAIN. IV ON ILAN PICC AND LAC 18 ITS CLEAN DRY AND INTACT. SHOWS NO SIGNS OF INFILTRATION, NO REDNESS. SAFETY PRECAUTIONS IN PLACE. BED IN LOWEST POSITION, LOCKED, AND CALL LIGHT KEPT WITHIN REACH. WILL CONTINUE TO MONITOR.
[2019-08-07 20:00] VITALS: BP 144/77
--- NOTE | 2019-08-08 06:33 | NUR ---
MS RN NOTES PATIENT IN BED, ASLEEP, ALERT AND ORIENTED X 1. BREATHING EVEN AND UNLABORED ON 2L NC SHOWS NO SIGNS OF ACUTE RESPIRATORY DISTRESS. NO ACUTE PAIN. IV ON ILAN PICC AND LAC 18 ITS CLEAN DRY AND INTACT. SHOWS NO SIGNS OF INFILTRATION, NO REDNESS. ALL DUE MEDICATIONS GIVEN. SAFETY PRECAUTIONS IN PLACE. BED IN LOWEST POSITION, LOCKED, AND CALL LIGHT KEPT WITHIN REACH. WILL ENDORSE TO ONCOMING NURSE.
[2019-08-08 06:36] LABS: CALCIUM, SERUM 7.8 mg/dL (8.5-10.1); CREATININE 0.7 mg/dL (0.6-1.3); PHOSPHORUS 2.4 mg/dL (2.5-4.9); POTASSIUM 3.1 mmol/L (3.5-5.1)
--- NOTE | 2019-08-08 07:35 | NUR ---
M/S RN NOTES PATIENT RESTING IN BED, NO RESPIRATORY DISTRESS, ON NASAL CANULA WITH O2 AT 2L. NO S/S OF ANY DISCOMFORT OR PAIN. SKIN WARM TO TOUCH, IV ACCESS SITES INTACT AND PATENT. ANDERSON CATH INTACT AND DRAINING CLEAR YELLOW URINE. PATIENT'S NEEDS ATTENDED, BED ON LOWEST LOCKED POSITION, CALL LIGHT WITHIN REACH. WILL CONTINUE TO MONITOR.
[2019-08-08 08:00] VITALS: BP 154/80
[2019-08-08] MEDS: SUCRALFATE 1 G TABLET PO SCH ×4 (08:30→22:00)
[2019-08-08] MEDS: DOCUSATE SODIUM LIQ 100 MG/10 ML UDC PO SCH (08:30)
[2019-08-08] MEDS: MULTIVIT W/MINERALS 1 TAB TABLET PO SCH (08:30)
[2019-08-08] MEDS: CHOLECALCIFEROL 1,000 UNIT TABLET (VIT D3) PO SCH (08:30)
[2019-08-08] MEDS: HYDROCORTISONE SOD SUCCINATE 100 MG/2 ML VIAL IV SCH (08:31)
[2019-08-08] MEDS: GABAPENTIN 300 MG CAPSULE PO SCH ×3 (08:31→16:18)
[2019-08-08] MEDS: ASPIRIN 81 MG TAB.CHEW PO SCH (08:31)
[2019-08-08] MEDS: PANTOPRAZOLE 40 MG VIAL IV SCH ×2 (08:31→16:17)
[2019-08-08] MEDS: CYANOCOBALAMIN 500 MCG TABLET PO SCH (08:31)
[2019-08-08] MEDS: Z GUARD REMEDY 2 OZ OINT TP SCH ×2 (08:32→21:42)
[2019-08-08] MEDS: MEROPENEM 500 MG in IV NS 0.9% 50 ML IV SCH ×2 (08:34→21:32)
[2019-08-08] MEDS: POTASSIUM CHLORIDE 20 MEQ TAB.PRT.SR PO SCH ×2 (10:03→11:07)
[2019-08-08] MEDS ORDERED: NEUTRA PHOS 1 POWD.PACKET PO ONE (11:30)
[2019-08-08] MEDS: SOD FERRIC GLUC 125 MG in IV NS 0.9% 100 ML IV SCH (14:36)
[2019-08-08 16:00] VITALS: BP 133/73
--- NOTE | 2019-08-08 18:02 | NUR ---
M/S RN NOTES CALLED PATIENT'S DAUGHTER REGLA FOR VERBAL CONSENT FOR EGD PROCEDURE TOMORROW WITH DR. MERCADO AND LEFT A MESSAGE, CALLED X3 BUT NO ANSWER OR RETURN CALL. WILL ENDORSE TO ONCOMING NURSE.
--- NOTE | 2019-08-08 19:09 | NUR ---
M/S RN NOTES PATIENT RESTING IN BED, NO RESPIRATORY DISTRESS, ON NASAL CANULA WITH O2 AT 2L. NO S/S OF ANY DISCOMFORT OR PAIN. SKIN WARM TO TOUCH, IV ON THE LAC #18G INTACT AND PATENT, ILAN PICC LINE INTACT AND PATENT. ANDERSON CATH INTACT AND DRAINING CLEAR YELLOW URINE. PATIENT'S NEEDS ATTENDED, BED ON LOWEST LOCKED POSITION, CALL LIGHT WITHIN REACH. WILL ENDORSE TO ONCOMING NURSE.
--- NOTE | 2019-08-08 20:02 | NUR ---
MS/TELE/RN PLACED A CALL TO REGLA DELACRUZ AT [phone] FOR EGD CONSENT. LEFT MESSAGE TO CALL [facility].
--- NOTE | 2019-08-08 20:03 | NUR ---
MS/TELE/RN PATIENT IS SLEEPING, APPEAR COMFORTABLE, BREATHING EVEN AND UNLABORED, CALL LIGHT IN REACH. WILL MONITOR.
[2019-08-08 20:19] VITALS: BP 144/79
--- NOTE | 2019-08-08 22:35 | NUR ---
MS/TELE/RN NO CALL BACK YET FROM THE DAUGHTER, REGLA DELACRUZ. CALLED HER AGAIN, NO ANSWER, LEFT MESSAGE.
--- NOTE | 2019-08-08 23:03 | NUR ---
MS/TELE/RN UNABLE TO GIVE SUCRALFATE, PATIENT APPEARS LETHARGIC, NOT SAFE TO SWALLOW.
[2019-08-09] MEDS: IV D5W 1,000 ML IV PRN (01:29)
--- NOTE | 2019-08-09 06:41 | NUR ---
MS/TELE/RN PATIENT IS STILL SLEEPING, APPEAR COMFORTABLE, BREATHING EVEN AND UNLABORED, CALL LIGHT IN REACH, ALL NEEDS ATTENDED AT THIS TIME, WILL CONTINUE TO MONITORM
[2019-08-09 07:03] LABS: BASOPHILS % (AUTO) 0.2 % (0.0-2.0); EOSINOPHILS % (AUTO) 0.1 % (0.0-6.0); HEMATOCRIT 23 % (33-45); HEMOGLOBIN 7.8 g/dL (11.5-14.8); LYMPHOCYTES # (AUTO) 1.1 /CMM (0.8-4.8); LYMPHOCYTES % (AUTO) 10.8 % (20.0-44.0); MEAN CORPUSCULAR HGB CONC 34 g/dl (31.0-36.0); MEAN CORPUSCULAR VOLUME 97 fL (82-100); MONOCYTES # (AUTO) 0.6 /CMM (0.1-1.30); MONOCYTES % (AUTO) 5.9 % (2.0-12.0); NEUTROPHILS # (AUTO) 8.7 /CMM (1.8-8.9); PLATELET COUNT (AUTO) 84 /CMM (150-450); RED BLOOD CELL COUNT(AUTO) 2.35 MIL/uL (4.0-5.2); WHITE BLOOD COUNT (AUTO) 10.4 K/uL (4.3-11.0)
[2019-08-09 07:22] LABS: CALCIUM, SERUM 7.6 mg/dL (8.5-10.1); CREATININE 0.6 mg/dL (0.6-1.3); PHOSPHORUS 2.9 mg/dL (2.5-4.9); POTASSIUM 3.1 mmol/L (3.5-5.1)
[2019-08-09] MEDS: SUCRALFATE 1 G TABLET PO SCH ×4 (07:25→22:00)
--- NOTE | 2019-08-09 07:27 | NUR ---
MS/RN - Assessment Patient is resting in bed, awake, A/O x 0, non-verbal, afebrile, no s/s of pain, currently on supplemental oxygen at 2lpm via NC, saturating well. Patient NPO, IVF D5W at 50 ml/hr on the ILAN PICC line with no signs of infiltration. Patient with sacral DTI, all pressure ulcer prevention noted to be in place. Labs reviewed, hgb/hct trending down, no active bleeding seen. Fall and aspiration precautions maintained. Patient for EGD today with Dr. Sanchez, several calls placed to daughter Gaviota [phone] but still haven't responded yet. Will continue with current plan of care.
[2019-08-09 08:00] VITALS: BP 162/81
[2019-08-09 08:08] LABS: *SPE A/G RATIO 0.8 (0.7-1.7); *SPE ALBUMIN 2.2 g/dL (2.9-4.4); *SPE ALPHA-1-GLOBULIN 0.4 g/dL (0.0-0.4); *SPE BETA GLOBULIN 0.6 g/dL (0.7-1.3); *SPE GLOBULIN, TOTAL 2.6 g/dL (2.2-3.9); *SPE M-SPIKE 0.1 g/dL (Not Observed); *SPEGAMMA GLOBULIN 0.5 g/dL (0.4-1.8)
[2019-08-09] MEDS: PANTOPRAZOLE 40 MG VIAL IV SCH ×2 (08:19→16:35)
[2019-08-09] MEDS: ASPIRIN 81 MG TAB.CHEW PO SCH (08:20)
[2019-08-09] MEDS: CHOLECALCIFEROL 1,000 UNIT TABLET (VIT D3) PO SCH (08:20)
[2019-08-09] MEDS: CYANOCOBALAMIN 500 MCG TABLET PO SCH (08:20)
[2019-08-09] MEDS: Z GUARD REMEDY 2 OZ OINT TP SCH ×2 (08:20→22:16)
[2019-08-09] MEDS: GABAPENTIN 300 MG CAPSULE PO SCH ×3 (08:20→16:25)
[2019-08-09] MEDS: MULTIVIT W/MINERALS 1 TAB TABLET PO SCH (08:20)
[2019-08-09] MEDS: DOCUSATE SODIUM LIQ 100 MG/10 ML UDC PO SCH (08:20)
--- NOTE | 2019-08-09 09:00 | NUR ---
MS/RN - Consent (EGD) Still unable to reach daughter Gaviota Shipley to obtain consent for EGD. Hospitalist Doug Hernandez NP and Deshawn Lal DNP both signed the consent. Patient will benefit from EGD with decreasing hemoglobin representing major risk of morbidity/mortality and pt is full code per POLST.
[2019-08-09] MEDS: POTASSIUM CL. PREMIX PERIPHER. 50 ML IV SCH ×6 (10:23→15:54)
[2019-08-09] MEDS: SOD FERRIC GLUC 125 MG in IV NS 0.9% 100 ML IV SCH (14:54)
[2019-08-09 16:00] VITALS: BP 162/84
[2019-08-09 18:16] LABS: HEMOGLOBIN 8.1 g/dL (11.5-14.8)
[2019-08-09] MEDS ORDERED: CEFTRIAXONE 2 G in IV D5W 100 ML IV SCH ×2 (18:30→20:00)
--- NOTE | 2019-08-09 18:48 | NUR ---
MS/RN - End of shift summary Patient sent to EGD at 18:15 in no acute distress, pre-op checklist completed, all consents signed. No significant change in condition seen, still lethargic, potassium replacement given (total of 60 meq IVPB) hgb/hct done at 18:00 results still pending at 18:45, 1 unit PRBC to be administered. Will endorse to night nurse accordingly.
[2019-08-09 20:16] VITALS: BP 171/86
--- NOTE | 2019-08-09 22:21 | NUR ---
MS/TELE/RN UNABLE TO GIVE SUCRALFATE, PATIENT DOES NOT SWALLOW THE CRUSHED MED MIXED WITH PUDDING. VERY HIGH RISK OF ASPIRATION.
--- NOTE | 2019-08-10 02:10 | NUR ---
MS/TELE/RN PATIENT IS SLEEPING, APPEAR COMFORTABLE, NO DISTRESS NOTED, CALL LIGHT IN REACH. WILL CONTINUE TO MONITOR.
[2019-08-10] MEDS: IV D5W 1,000 ML IV PRN (05:38)
--- NOTE | 2019-08-10 06:02 | NUR ---
MS/TELE/RN PATIENT STILL SLEEPING, APPEAR COMFORTABLE, NO SIGNS OF DISTRESS NOTED, CALL LIGHT IN REACH. ALL NEEDS ATTENDED AT THIS TIME, WILL CONTINUE TO MONITOR.
[2019-08-10 06:41] LABS: EOSINOPHILS % (AUTO) 0.6 % (0.0-6.0); HEMATOCRIT 24 % (33-45); HEMOGLOBIN 8.1 g/dL (11.5-14.8); LYMPHOCYTES # (AUTO) 1.4 /CMM (0.8-4.8); LYMPHOCYTES % (AUTO) 12.6 % (20.0-44.0); MEAN CORPUSCULAR HGB CONC 33 g/dl (31.0-36.0); MEAN CORPUSCULAR VOLUME 98 fL (82-100); MONOCYTES # (AUTO) 0.5 /CMM (0.1-1.30); MONOCYTES % (AUTO) 4.6 % (2.0-12.0); NEUTROPHILS # (AUTO) 9.4 /CMM (1.8-8.9); NEUTROPHILS % (AUTO) 82.2 % (43.0-81.0); PLATELET COUNT (AUTO) 113 /CMM (150-450); WHITE BLOOD COUNT (AUTO) 11.4 K/uL (4.3-11.0)
[2019-08-10 07:01] LABS: CALCIUM, SERUM 7.5 mg/dL (8.5-10.1); CARBON DIOXIDE 25 mmol/L (21-32); CHLORIDE 116 mmol/L (98-107); CREATININE 0.5 mg/dL (0.6-1.3); GLUCOSE 117 mg/dL (74-106); POTASSIUM 3.3 mmol/L (3.5-5.1); SODIUM SERUM 148 mmol/L (136-145); UREA NITROGEN, BLOOD 20 mg/dL (7-18)
[2019-08-10] MEDS: SUCRALFATE 1 G TABLET PO SCH (07:30)
--- NOTE | 2019-08-10 07:30 | NUR ---
RN MS NOTES PT IN BED, AWAKE, NON VERBAL, NO SIGN OF PAIN OR DISTRESS, IV FLUIDS INFUSING WELL, CALL LIGHT WITHIN REACH, KEPT WARM AND COMFORTABLE.
[2019-08-10 08:00] VITALS: BP 157/83
--- NOTE | 2019-08-10 08:55 | NUR ---
RN MS NOTES PT UNABLE TO SWALLOW MEDS, MEDS NOT ADMINISTERED, PT UNABLE TO FOLLOW DIRECTIONS, DR. ALEXANDER INFORMED, ORDERED STAT CT HEAD WITHOUT CONTRAST.
[2019-08-10] MEDS: CYANOCOBALAMIN 500 MCG TABLET PO SCH (08:57)
[2019-08-10] MEDS: GABAPENTIN 300 MG CAPSULE PO SCH ×3 (08:57→16:04)
[2019-08-10] MEDS: DOCUSATE SODIUM LIQ 100 MG/10 ML UDC PO SCH (08:57)
[2019-08-10] MEDS: CHOLECALCIFEROL 1,000 UNIT TABLET (VIT D3) PO SCH (08:57)
[2019-08-10] MEDS: ASPIRIN 81 MG TAB.CHEW PO SCH (08:57)
[2019-08-10] MEDS: MULTIVIT W/MINERALS 1 TAB TABLET PO SCH (08:57)
[2019-08-10] MEDS: PANTOPRAZOLE 40 MG VIAL IV SCH ×2 (09:08→16:09)
[2019-08-10] MEDS: Z GUARD REMEDY 2 OZ OINT TP PRN (09:08)
[2019-08-10] MEDS: Z GUARD REMEDY 2 OZ OINT TP SCH ×2 (09:10→21:26)
--- NOTE | 2019-08-10 10:24 | NUR ---
RN MS NOTES HEAD CT SCAN RESULT RELAYED TO DR. ALEXANDER, KEEP PT NPO PER MD.
--- NOTE | 2019-08-10 10:38 | NUR ---
RN MS NOTES DR. LLOYD ASSESSED PT VIA FACETIME.
--- NOTE | 2019-08-10 12:11 | NUR ---
RN MS NOTES PT IN BED, AWAKE, NO FACIAL GRIMACING OR MOANING, STROKE ASSESSMENT DONE, MD INFORMED, DUE MEDS GIVEN ORDERED, REPOSITIONED FOR COMFORT, KEPT COMFORTABLE, IV FLUIDS INFUSING WELL, F/C DRAINING WELL WITH CLEAR, YELLOW URINE.
[2019-08-10] MEDS: POTASSIUM CL. PREMIX PERIPHER. 50 ML IV SCH ×2 (12:15→13:31)
[2019-08-10] MEDS: ASPIRIN 300 MG/SUPP.RECT RC SCH (12:16)
[2019-08-10 16:00] VITALS: BP 140/78
--- NOTE | 2019-08-10 18:25 | NUR ---
RN MS NOTES PT IN BED, RESTING, AWAKE, EYES OPEN, NON VERBAL, NOTED WITH SOME GARBLED WORDS, NOT IN DISTRESS, NO FACIAL GRIMACING, IV FLUIDS INFUSING WELL, NEUROCHECKS DONE, PM CARE DONE, KEPT IP PARALEGAL BED.
--- NOTE | 2019-08-10 19:30 | NUR ---
MS RN OPENING NOTE RECEIVED PATIENT IN BED. PATIENT IS NONVERBAL, OPENS EYES. ON OXYGEN 2L/MIN VIA NASAL CANNULA. RESPIRATIONS ARE EVEN AND UNLABORED. NO S/S SOB NOTED. NO S/S OF PAIN AT THIS TIME. IN NO APPARENT DISTRESS. IV ACCESS IN ILAN PICC LINE RUNNING D5W@50ML/HR. LAC#18 PATENT AND SALINE LOCKED. ANDERSON CATHETER IS PRESENT, DRAINING TO GRAVITY, URINE IS ORANGE/ROSIBEL. BED IS LOW AND LOCKED, HOB ELEVATED IN SEMI FOWLERS, SIDE RAILS UP X2-3. CALL LIGHT WITHIN REACH. WILL CONTINUE TO MONITOR.
[2019-08-10 20:00] VITALS: BP 155/76
[2019-08-10] MEDS: CEFAZOLIN 1 GM in IV NS 0.9% 50 ML IV SCH (21:17)
[2019-08-11] MEDS: CEFAZOLIN 1 GM in IV NS 0.9% 50 ML IV SCH ×2 (04:59→12:23)
[2019-08-11] MEDS: IV D5W 1,000 ML IV PRN ×2 (05:08→23:01)
--- NOTE | 2019-08-11 06:44 | NUR ---
MS RN CLOSING NOTE PATIENT IN BED. PATIENT REMAINS NONVERBAL, OPENS EYES. REMAINS ON OXYGEN 2L/MIN VIA NASAL CANNULA. RESPIRATIONS ARE EVEN AND UNLABORED. NO SOB NOTED. NO S/S OF PAIN T/O SHIFT. NO DISTRESS. IV ACCESS MAINTAINED IN ILAN PICC LINE RUNNING D5W@50ML/HR. ANDERSON CATHETER IS MAINTAINED, DRAINING TO GRAVITY, URINE IS ORANGE/ROSIBEL, OUTPUT 500ML. BED REMAINS LOW AND LOCKED, HOB ELEVATED IN SEMI FOWLERS, SIDE RAILS UP X2-3. DVT PUMPS CONNECTED. CALL LIGHT WITHIN REACH. WILL ENDORSE TO NEXT SHIFT.
[2019-08-11 06:51] LABS: APPEARANCE,URINE SL CLOUDY (CLEAR); BILIRUBIN,URINE NEGATIVE (NEGATIVE); BLOOD, URINE NEGATIVE Ery/uL (NEGATIVE); COLOR,URINE YELLOW (YELLOW); KETONES,URINE NEGATIVE (NEGATIVE); LEUKOCYTE ESTERASE ,URINE NEGATIVE (NEGATIVE); NITRITE, URINE NEGATIVE (NEGATIVE); PROTEIN,URINE NEGATIVE (NEGATIVE); UGLUCOSE NEGATIVE (NEGATIVE); UROBILINOGEN,URINE 0.2 EU/dL (0.2)
[2019-08-11 07:16] LABS: BASOPHILS % (AUTO) 0.1 % (0.0-2.0); EOSINOPHILS % (AUTO) 0.3 % (0.0-6.0); HEMATOCRIT 24 % (33-45); LYMPHOCYTES # (AUTO) 0.9 /CMM (0.8-4.8); LYMPHOCYTES % (AUTO) 8.6 % (20.0-44.0); MEAN CORPUSCULAR HGB CONC 34 g/dl (31.0-36.0); MEAN CORPUSCULAR VOLUME 99 fL (82-100); MONOCYTES # (AUTO) 0.4 /CMM (0.1-1.30); MONOCYTES % (AUTO) 3.6 % (2.0-12.0); NEUTROPHILS # (AUTO) 9.3 /CMM (1.8-8.9); NEUTROPHILS % (AUTO) 87.4 % (43.0-81.0); PLATELET COUNT (AUTO) 126 /CMM (150-450); RED BLOOD CELL COUNT(AUTO) 2.39 MIL/uL (4.0-5.2); WHITE BLOOD COUNT (AUTO) 10.6 K/uL (4.3-11.0)
[2019-08-11 07:50] LABS: ALANINE AMINOTRANSFERASE 28 U/L (12-78); ALBUMIN 1.9 g/dL (3.4-5.0); ALKALINE PHOSPHATASE 47 U/L (46-116); ASPARTATE AMINOTRANSFERASE 29 U/L (15-37); BILIRUBIN,TOTAL 0.6 mg/dL (0.2-1.0); CALCIUM, SERUM 7.9 mg/dL (8.5-10.1); CARBON DIOXIDE 24 mmol/L (21-32); CHLORIDE 112 mmol/L (98-107); CREATININE 0.5 mg/dL (0.6-1.3); GLUCOSE 105 mg/dL (74-106); MAGNESIUM 1.9 mg/dL (1.8-2.4); PHOSPHORUS 2.7 mg/dL (2.5-4.9); POTASSIUM 3.3 mmol/L (3.5-5.1); SODIUM SERUM 144 mmol/L (136-145); TOTAL PROTEIN, SERUM 5.1 g/dL (6.4-8.2); UREA NITROGEN, BLOOD 22 mg/dL (7-18)
[2019-08-11 08:00] VITALS: BP 166/86
--- NOTE | 2019-08-11 08:00 | NUR ---
MS RN OPENING NOTE RECEIVED PATIENT IN BED. PATIENT IS NONVERBAL, OPENS EYES. ON OXYGEN 2L/MIN VIA NASAL CANNULA. RESPIRATIONS ARE EVEN AND UNLABORED. NO S/S SOB NOTED. NO S/S OF PAIN AT THIS TIME. IN NO APPARENT DISTRESS. IV ACCESS IN ILAN PICC LINE RUNNING D5W@50ML/HR. LAC#18 PATENT AND SALINE LOCKED. ANDERSON CATHETER IS PRESENT, DRAINING TO GRAVITY, URINE IS YELLOW/ROSIBEL IN COLOR. BED IS LOW AND LOCKED, HOB ELEVATED IN SEMI FOWLERS, SIDE RAILS UP X2-3. CALL LIGHT WITHIN REACH. WILL CONTINUE TO MONITOR.
[2019-08-11] MEDS: DOCUSATE SODIUM LIQ 100 MG/10 ML UDC PO SCH (08:58)
[2019-08-11] MEDS: GABAPENTIN 300 MG CAPSULE PO SCH ×3 (08:59→17:00)
[2019-08-11] MEDS: CYANOCOBALAMIN 500 MCG TABLET PO SCH (08:59)
[2019-08-11] MEDS: MULTIVIT W/MINERALS 1 TAB TABLET PO SCH (08:59)
[2019-08-11] MEDS: CHOLECALCIFEROL 1,000 UNIT TABLET (VIT D3) PO SCH (08:59)
[2019-08-11] MEDS: Z GUARD REMEDY 2 OZ OINT TP SCH ×2 (09:00→20:27)
--- NOTE | 2019-08-11 09:00 | NUR ---
NOTIFIED LILI GRACIA OF PT'S HIGH BP166/86 HR 92 WITH NO NEW ORDER AT THIS TIME.
[2019-08-11] MEDS: PANTOPRAZOLE 40 MG VIAL IV SCH ×2 (09:08→18:45)
[2019-08-11] MEDS: ASPIRIN 300 MG/SUPP.RECT RC SCH (09:11)
[2019-08-11] MEDS: POTASSIUM CHLORIDE 20 MEQ TAB.PRT.SR PO SCH ×3 (09:53→12:00)
[2019-08-11] MEDS: POTASSIUM CL. PREMIX PERIPHER. 50 ML IV SCH ×2 (09:56→11:08)
--- NOTE | 2019-08-11 12:00 | NUR ---
NOTIFIED KRIS ALEXANDER OF PT'S POTASSIUM LEVEL OF 2.8 AND HAS POTASSIUM 20 MEQ PO ORDERED X3 WITH ORDERS TO DC THEM AND JUST CONTINUE WITH THE K+ IV ORDERED.
[2019-08-11 16:00] VITALS: BP 160/77
--- NOTE | 2019-08-11 18:00 | NUR ---
NOTIFIED LILI GRACIA OF PT'S HIGH BP164/77 HR 90 WITH NO NEW ORDER AT THIS TIME
--- NOTE | 2019-08-11 18:30 | NUR ---
PT STILL LOOKS COMFORTABLE WITH NO S/S OF PAIN OR DISTRESS WITH ONGOING IVF OF D5W AT 50 ML/HR INFUSING WELL.NEEDS ANTICIPATED AND ATTENDED.STILL NON VERBAL AND JUST OPENS HER EYES.
--- NOTE | 2019-08-11 19:30 | NUR ---
MS RN OPENING NOTES PATIENT RESTING COMFORTABLY IN BED; NON-VERBAL, ABLE TO OPEN EYES. ON 2L NC. NO S/S OF ACUTE RESPIRATORY DISTRESS; BREATHING IS EVEN AND UNLABORED. NO S/S OF PAIN NOTED. PICC LINE PRESENT ON RIGHT UPPER ARM, INTACT & PATENT WITH D5W RUNNING AT 50 ML/HR. ANDERSON CATH PRESENT, DRAINING GEORGINA ROSIBEL URINE; 750 ML OF URINE EMPTIED PER DAY SHIFT RN. SAFETY MEASURES IN PLACE AND PATIENT'S NEEDS MET. BED LOCKED, ALARM ON, SIDE RAILS X2, HOB ELEVATED, CALL LIGHT WITHIN REACH. WILL CONTINUE TO MONITOR.
[2019-08-11 20:00] VITALS: BP 150/74
[2019-08-11] MEDS: CEFAZOLIN 2 GM in IV D5W 100 ML IV SCH (20:25)
[2019-08-11] MEDS ORDERED: CEFAZOLIN 2 GM in IV NS 0.9% 50 ML IV SCH (21:00)
[2019-08-12 06:37] LABS: BASOPHILS % (AUTO) 0.1 % (0.0-2.0); EOSINOPHILS % (AUTO) 0.4 % (0.0-6.0); HEMATOCRIT 24 % (33-45); HEMOGLOBIN 8.3 g/dL (11.5-14.8); LYMPHOCYTES # (AUTO) 0.7 /CMM (0.8-4.8); LYMPHOCYTES % (AUTO) 7.4 % (20.0-44.0); MEAN CORPUSCULAR HGB CONC 34 g/dl (31.0-36.0); MEAN CORPUSCULAR VOLUME 99 fL (82-100); MONOCYTES # (AUTO) 0.4 /CMM (0.1-1.30); MONOCYTES % (AUTO) 3.9 % (2.0-12.0); NEUTROPHILS # (AUTO) 8.3 /CMM (1.8-8.9); NEUTROPHILS % (AUTO) 88.2 % (43.0-81.0); PLATELET COUNT (AUTO) 122 /CMM (150-450); RED BLOOD CELL COUNT(AUTO) 2.45 MIL/uL (4.0-5.2); WHITE BLOOD COUNT (AUTO) 9.3 K/uL (4.3-11.0)
--- NOTE | 2019-08-12 07:01 | NUR ---
MS RN CLOSING NOTES PATIENT SLEEPING IN BED; NON-VERBAL, ABLE TO OPEN EYES. ON 2L NC. NO S/S OF ACUTE RESPIRATORY DISTRESS; BREATHING IS EVEN AND UNLABORED. NO S/S OF PAIN NOTED. CURRENTLY NPO. PICC LINE PRESENT ON RIGHT UPPER ARM, INTACT & PATENT WITH D5W RUNNING AT 50 ML/HR. ANDERSON CATH PRESENT, DRAINING GEORGINA ROSIBEL URINE; 500 ML OF URINE EMPTIED. SAFETY MEASURES IN PLACE AND PATIENT'S NEEDS MET. BED LOCKED, ALARM ON, SIDE RAILS X2, HOB ELEVATED, CALL LIGHT WITHIN REACH. WILL ENDORSE TO DAY SHIFT NURSE PLAN OF CARE.
[2019-08-12 07:12] LABS: CALCIUM, SERUM 7.7 mg/dL (8.5-10.1); CARBON DIOXIDE 23 mmol/L (21-32); CHLORIDE 107 mmol/L (98-107); CREATININE 0.5 mg/dL (0.6-1.3); GLUCOSE 109 mg/dL (74-106); POTASSIUM 3.2 mmol/L (3.5-5.1); SODIUM SERUM 139 mmol/L (136-145); UREA NITROGEN, BLOOD 18 mg/dL (7-18)
[2019-08-12 08:00] VITALS: BP 140/69
--- NOTE | 2019-08-12 08:29 | NUR ---
MS/RN OPENING NOTE PATIENT SLEEPING IN BED, COMFORTASBLY; NON-VERBAL, ABLE TO OPEN EYES. PATIENT ON 2L NC. NO S/S OF ACUTE RESPIRATORY DISTRESS; BREATHING IS EVEN AND UNLABORED. NO S/S OF PAIN NOTED. CURRENTLY NPO. PICC LINE PRESENT ON RIGHT UPPER ARM, INTACT & PATENT WITH D5W RUNNING AT 50 ML/HR. ANDERSON CATH PRESENT. SAFETY MEASURES IN PLACE . BED LOCKED, ALARM ON, SIDE RAILS X2, HOB ELEVATED, CALL LIGHT WITHIN REACH.
--- NOTE | 2019-08-12 08:30 | NUR ---
During AM rounds,INSTRUMENTATION ENGINEER reported that the patient's sacral sore is getting worst that she noticed during diaper change.Skin assessment done and measured sacral DTI with 2 different sites #1 sacral area 3.5 cm x 4 cm x UTD and #2 midsacral and rt buttock area measuring 4 cm x 4.5 cm x UTD in size ,iwith redness but with no drainage noted. Covered sacral DTI with Mepilex.Turned and repositioned pt .Ordered special mattress and wound consult for the pt. Will continue to monitor.
[2019-08-12] MEDS: CHOLECALCIFEROL 1,000 UNIT TABLET (VIT D3) PO SCH (09:00)
[2019-08-12] MEDS: DOCUSATE SODIUM LIQ 100 MG/10 ML UDC PO SCH (09:00)
[2019-08-12] MEDS: GABAPENTIN 300 MG CAPSULE PO SCH ×3 (09:00→17:00)
[2019-08-12] MEDS: CYANOCOBALAMIN 500 MCG TABLET PO SCH (09:00)
[2019-08-12] MEDS: MULTIVIT W/MINERALS 1 TAB TABLET PO SCH (09:00)
[2019-08-12] MEDS: CEFAZOLIN 2 GM in IV D5W 100 ML IV SCH ×2 (09:18→20:35)
[2019-08-12] MEDS: PANTOPRAZOLE 40 MG VIAL IV SCH ×2 (09:18→17:44)
[2019-08-12] MEDS: ASPIRIN 300 MG/SUPP.RECT RC SCH (09:19)
[2019-08-12] MEDS: Z GUARD REMEDY 2 OZ OINT TP SCH ×2 (09:19→22:17)
[2019-08-12] MEDS ORDERED: POTASSIUM CL. PREMIX PERIPHER. 50 ML IV SCH (10:12)
[2019-08-12] MEDS: POTASSIUM CL. PREMIX PERIPHER. 50 ML IV SCH ×6 (10:30→20:36)
--- NOTE | 2019-08-12 11:30 | NUR ---
LILI GRACIA CALLED AND STATED THAT PT'S EEG CAME OUT NORMAL AND DISCUSSED PLAN OF CARE WITH NEURO,DR LLOYD.SAMIA GAVE ORDERS FOR PSYCH CONSULT DUE TO PT'S HX OF SCHIZO, DYSPHAGIA AND NON VERBAL, AND FOR LUMBAR PUNCTURE TO R/O MENINGITIS AND FOR CSF PANEL FOR C/S G/S AND TO CHECK FOR WEST NILE VIRUS.
--- NOTE | 2019-08-12 11:34 | NUR ---
CALLED DR GUILLORY (PSYCH) AND EXPLAINED THE REASON FOR PSYCH CONSULT DUE TO HX OF SCHIZO,DYSPHAGIA AND NON VERBAL. DR GUILLORY STATED THAT HE CAN'T ASSESS THE PT IF THE PT IS NON VERBAL AND TO CALL HIM BACK WHEN THE PT STARTS TALKING.
--- NOTE | 2019-08-12 13:43 | NUR ---
PT WAS BROUGHT DOWN BY RADIOLOGY FOR LUMBAR PUNCTURE PROCEDURE.WITH STABLE V/S.DELAYING THE POTASSIUM IV INFUSION.WILL CALL RADIOLOGY TO HOLD THE CSF FOR LAB TESTS AND FUTURE STUDIES.
--- NOTE | 2019-08-12 13:48 | NUR ---
PT'S ILAN MIDLINE SITE IS SWOLLEN AND HELD ALL IVF -DR RUIZ AWARE.DR RUIZ STATED TO CHANGE LEVAQUIN IV ATB TO PO DUE FOR 1300. NOTIFIED PHARMACIST,BHARAT AND MADE AWARE. Addendum: 08/12/19 at 1352 by HARRY LIVE RN PLS IGNORE ABOVE NOTES DOCUMENTED ON THE WRONG PT.
--- NOTE | 2019-08-12 15:17 | NUR ---
ANNE-MARIE OF RADIOLOGY CALLED REPORTING THAT THEY WEREN'T ABLE TO COLLECT CSF FROM THE PATIENT INSPITE OF MULTIPLE PUNCTURES MADE DUE TO SPINAL DEGENERATIVE DISEASE.NOTIFIED LILI GRACIA AND MADE AWARE. ALSO WITH ORDERS TO HOLD ASPIRIN FOR 24 HOURS.
[2019-08-12 16:00] VITALS: BP 145/64
--- NOTE | 2019-08-12 18:50 | NUR ---
MS RN/ CLOSING NOTES PATIENT RESTING IN BED; NON-VERBAL, ABLE TO OPEN EYES. ON 2L NC. NO S/S OF ACUTE RESPIRATORY DISTRESS AND BREATHING IS EVEN, UNLABORED. NO SIGNS OF PAIN NOTED. CURRENTLY NPO. PICC LINE PRESENT ON RIGHT UPPER ARM, INTACT & PATENT. ANDERSON CATH PRESENT. SAFETY MEASURES IN PLACE AND PATIENT'S NEEDS MET. BED LOCKED, ALARM ON, SIDE RAILS X2, HOB ELEVATED, CALL LIGHT WITHIN REACH. WILL ENDORSE TO PM SHIFT NURSE PLAN OF CARE.
--- NOTE | 2019-08-12 19:15 | NUR ---
MS RN/ OPENING PM NOTE REPORT RECIEVED FROM SAM GARCÍA. PATIENT IN BED; NON-VERBAL, ABLE TO OPEN EYES WITH TACTILE STIMULI. ON 2L NC. NO S/S OF ACUTE RESPIRATORY DISTRESS BREATHING EVEN, UNLABORED. NO SIGNS OF PAIN NOTED PER FLACC SCALE. PT CURRENTLY NPO. PICC LINE PRESENT ON RIGHT UPPER ARM, INTACT & PATENT IVF INFUSING ORDERED. PER REPORT ONE BAG OF KCL NEEDS TO BE HUNG TO SUPPLEMENT LOW POTASSIUM.. ANDERSON CATH PRESENT DRAINING ORANGE/ROSIBEL URINE. SAFETY MEASURES IN PLACE BED LOCKED, ALARM ON, SIDE RAILS X3, HOB ELEVATED, CALL LIGHT PLACED WITHIN REACH. WILL CONT TO MONITOR.
[2019-08-12 20:07] VITALS: BP 157/83
--- NOTE | 2019-08-12 20:30 | NUR ---
ISOFLEX BED; SCD ARE ON BLE. PATIENT TRANSFERRED FROM NORMAL BED ONTO SPECIALTY ISOFLEX MATTRESS.
[2019-08-12] MEDS: IV D5W 1,000 ML IV PRN (20:34)
[2019-08-12] MEDS: Z GUARD REMEDY 2 OZ OINT TP PRN (22:15)
[2019-08-13 07:17] LABS: BASOPHILS % (AUTO) 0.1 % (0.0-2.0); EOSINOPHILS % (AUTO) 0.3 % (0.0-6.0); HEMATOCRIT 24 % (33-45); HEMOGLOBIN 7.9 g/dL (11.5-14.8); LYMPHOCYTES # (AUTO) 0.8 /CMM (0.8-4.8); LYMPHOCYTES % (AUTO) 8.4 % (20.0-44.0); MEAN CORPUSCULAR HGB CONC 33 g/dl (31.0-36.0); MEAN CORPUSCULAR VOLUME 99 fL (82-100); MONOCYTES # (AUTO) 0.4 /CMM (0.1-1.30); NEUTROPHILS # (AUTO) 8.3 /CMM (1.8-8.9); NEUTROPHILS % (AUTO) 87.2 % (43.0-81.0); PLATELET COUNT (AUTO) 138 /CMM (150-450); RED BLOOD CELL COUNT(AUTO) 2.41 MIL/uL (4.0-5.2); WHITE BLOOD COUNT (AUTO) 9.5 K/uL (4.3-11.0)
[2019-08-13 07:25] LABS: CALCIUM, SERUM 7.5 mg/dL (8.5-10.1); CARBON DIOXIDE 24 mmol/L (21-32); CHLORIDE 106 mmol/L (98-107); CREATININE 0.4 mg/dL (0.6-1.3); GLUCOSE 103 mg/dL (74-106); POTASSIUM 3.7 mmol/L (3.5-5.1); SODIUM SERUM 136 mmol/L (136-145); UREA NITROGEN, BLOOD 12 mg/dL (7-18)
[2019-08-13 08:00] VITALS: BP 135/64
[2019-08-13] MEDS: PANTOPRAZOLE 40 MG VIAL IV SCH ×2 (08:54→16:35)
[2019-08-13] MEDS: CEFAZOLIN 2 GM in IV D5W 100 ML IV SCH ×2 (08:54→21:24)
[2019-08-13] MEDS: DOCUSATE SODIUM LIQ 100 MG/10 ML UDC PO SCH (08:57)
[2019-08-13] MEDS: GABAPENTIN 300 MG CAPSULE PO SCH ×3 (08:57→16:36)
[2019-08-13] MEDS: CHOLECALCIFEROL 1,000 UNIT TABLET (VIT D3) PO SCH (08:58)
[2019-08-13] MEDS: MULTIVIT W/MINERALS 1 TAB TABLET PO SCH (08:58)
[2019-08-13] MEDS: CYANOCOBALAMIN 500 MCG TABLET PO SCH (08:58)
[2019-08-13] MEDS: ASPIRIN 300 MG/SUPP.RECT RC SCH (08:59)
[2019-08-13] MEDS: Z GUARD REMEDY 2 OZ OINT TP SCH ×2 (09:00→21:37)
--- NOTE | 2019-08-13 10:34 | NUR ---
MS NOTE DR. CARRASCO CALLED, GAVE UPDATE OF PATIENT'S STATUS, PER MD, "CALL HIM BACK WHEN PATIENT IS ORIENTED."
--- NOTE | 2019-08-13 13:35 | NUR ---
MS RN NOTE INFORMED LILI GRACIA THAT SALVADOR KLEIN REC: TF BUT PER POL SIGNED BY PATIENT ON 04/24/19, NO MEANS OF ARTIFICIAL NUTRITION.
[2019-08-13 16:00] VITALS: BP 137/59
[2019-08-13] MEDS: IV NS 0.9% 1,000 ML IV PRN (16:36)
--- NOTE | 2019-08-13 19:30 | NUR ---
MS RN NOTES PATIENT RESTING COMFORTABLY IN BED. NON-VERBAL, OPENS EYES AND TRACKS. RESPONSIVE TO VERBAL AND TACTILE STIMULI. ON 02 AT 2L/MIN VIA NC. NO S/S OF RESPIRATORY DISTRESS. DENIES ANY C/O PAIN NOR DISCOMFORT AT THIS TIME. ILAN PICC LINE INTACT AND PATENT INFUSING NS 0.9 % 50ML/HR. ANDERSON CATH INTACT AND PATENT DRAINING YELLOW COLORED URINE VIA BEDSIDE. BED IN LOWEST POSITION, LOCKED. BED ALARM ON. CALL LIGHT WITHIN REACH. IN NO APPARENT DISTRESS.
[2019-08-13 20:00] VITALS: BP 136/66
--- NOTE | 2019-08-13 20:00 | NUR ---
MS RN NOTES RECEIVED ON BED,NON VERBAL,EYES BLINKING WHEN YOU CALL HER NAME.IVF NS AT 50ML/HR RATE INFUSING ON RIGHT UPPER ARM PICC LINE.WILL CONTINUE TO MONITOR STATUS.
[2019-08-13 20:15] VITALS: BP 136/66
[2019-08-13] MEDS: NITROGLYCERIN 30 GM TUBE TP SCH (21:24)
[2019-08-14 06:24] LABS: BASOPHILS % (AUTO) 0.3 % (0.0-2.0); EOSINOPHILS % (AUTO) 0.2 % (0.0-6.0); HEMATOCRIT 22 % (33-45); HEMOGLOBIN 7.5 g/dL (11.5-14.8); LYMPHOCYTES % (AUTO) 11.5 % (20.0-44.0); MEAN CORPUSCULAR HGB CONC 33 g/dl (31.0-36.0); MEAN CORPUSCULAR VOLUME 99 fL (82-100); MONOCYTES # (AUTO) 0.5 /CMM (0.1-1.30); MONOCYTES % (AUTO) 5.5 % (2.0-12.0); NEUTROPHILS % (AUTO) 82.5 % (43.0-81.0); PLATELET COUNT (AUTO) 153 /CMM (150-450); RED BLOOD CELL COUNT(AUTO) 2.27 MIL/uL (4.0-5.2); WHITE BLOOD COUNT (AUTO) 8.4 K/uL (4.3-11.0)
--- NOTE | 2019-08-14 06:32 | NUR ---
MS RN NOTES ON BED,REMAINS UNRESPONSIVE.OPEN EYES TO NAME,TACTILE STIMULI,IVF INFUSING,IV ABX TOLERATED WELL.IN NO ACUTE DISTRESS.
[2019-08-14 06:40] LABS: CALCIUM, SERUM 7.4 mg/dL (8.5-10.1); CARBON DIOXIDE 23 mmol/L (21-32); CHLORIDE 106 mmol/L (98-107); CREATININE 0.5 mg/dL (0.6-1.3); GLUCOSE 82 mg/dL (74-106); POTASSIUM 3.3 mmol/L (3.5-5.1); SODIUM SERUM 138 mmol/L (136-145); UREA NITROGEN, BLOOD 12 mg/dL (7-18)
[2019-08-14 08:00] VITALS: BP 140/72
[2019-08-14] MEDS: CEFAZOLIN 2 GM in IV D5W 100 ML IV SCH ×2 (08:34→21:18)
[2019-08-14] MEDS: ASPIRIN 300 MG/SUPP.RECT RC SCH (08:35)
[2019-08-14] MEDS: NITROGLYCERIN 30 GM TUBE TP SCH ×2 (08:35→21:47)
[2019-08-14] MEDS: PANTOPRAZOLE 40 MG VIAL IV SCH ×2 (08:36→16:45)
[2019-08-14] MEDS: DOCUSATE SODIUM LIQ 100 MG/10 ML UDC PO SCH (08:39)
[2019-08-14] MEDS: GABAPENTIN 300 MG CAPSULE PO SCH ×3 (08:39→16:45)
[2019-08-14] MEDS: MULTIVIT W/MINERALS 1 TAB TABLET PO SCH (08:40)
[2019-08-14] MEDS: CYANOCOBALAMIN 500 MCG TABLET PO SCH (08:40)
[2019-08-14] MEDS: CHOLECALCIFEROL 1,000 UNIT TABLET (VIT D3) PO SCH (08:40)
[2019-08-14] MEDS: Z GUARD REMEDY 2 OZ OINT TP SCH ×2 (08:41→21:18)
[2019-08-14] MEDS: POTASSIUM CL. PREMIX PERIPHER. 50 ML IV SCH ×2 (10:24→11:39)
[2019-08-14 16:00] VITALS: BP 137/67
--- NOTE | 2019-08-14 19:46 | NUR ---
MS RN NOTES PATIENT RESTING COMFORTABLY IN BED. NON-VERBAL, OPENS EYES AND TRACKS. RESPONSIVE TO VERBAL AND TACTILE STIMULI. ON 02 AT 2L/MIN VIA NC. NO SOB OBSERVED DURING THE SHIFT. NO EVIDENCE OF PAIN NOR DISCOMFORT DURING THE SHIFT. ILAN PICC LINE INTACT AND PATENT INFUSING NS 0.9 % 50ML/HR. ANDERSON CATH INTACT AND PATENT DRAINING YELLOW COLORED URINE VIA BEDSIDE. BED IN LOWEST POSITION, LOCKED. BED ALARM ON. CALL LIGHT WITHIN REACH. IN NO APPARENT DISTRESS.
--- NOTE | 2019-08-14 19:57 | NUR ---
MS RN NOTES PATIENT RESTING COMFORTABLY IN BED. NON-VERBAL, OPENS EYES AND TRACKS. RESPONSIVE TO VERBAL AND TACTILE STIMULI. ON 02 AT 2L/MIN VIA NC. NO S/S OF RESPIRATORY DISTRESS. NO FACIAL GRIMACING NOTED. . ILAN PICC LINE INTACT AND PATENT INFUSING NS 0.9 % 50ML/HR. ANDERSON CATH INTACT AND PATENT DRAINING YELLOW URINE OUTPUT.SAFETY MEASURES IN PLACED, ASPIRATION PRECAUTION EMPHASIZED. BED IN LOWEST POSITION, LOCKED. BED ALARM ON. CALL LIGHT WITHIN EASY REACH. IN NO APPARENT DISTRESS. REPOSITIONED. ALL NEEDS ANTICIPATED. WILL CONTINUE TO MONITOR ACCORDINGLY.
[2019-08-14 20:25] VITALS: BP 155/72
[2019-08-14 20:46] VITALS: BP 155/72
[2019-08-15] MEDS: IV NS 0.9% 1,000 ML IV PRN (06:26)
--- NOTE | 2019-08-15 06:34 | NUR ---
RN NOTES ALL NEEDS ATTENDED AND MET. ABLE TO REST AND SLEPT AT INTERVALS, KEPT CLEAN WARM DRY AND COMFORTABLE, NO SIGNS OF ACUTE DISTRESS NOTED. SAFETY MEASURES IN PLACE, ASPIRATION PRECAUTION EMPHASIZED. WILL ENDORSE TO AM NURSE FOR CONTINUITY OF CARE.
[2019-08-15 06:35] LABS: BASOPHILS % (AUTO) 0.3 % (0.0-2.0); EOSINOPHILS % (AUTO) 0.2 % (0.0-6.0); HEMATOCRIT 26 % (33-45); HEMOGLOBIN 8.4 g/dL (11.5-14.8); LYMPHOCYTES # (AUTO) 0.7 /CMM (0.8-4.8); LYMPHOCYTES % (AUTO) 9.8 % (20.0-44.0); MEAN CORPUSCULAR HGB CONC 33 g/dl (31.0-36.0); MEAN CORPUSCULAR VOLUME 99 fL (82-100); MONOCYTES # (AUTO) 0.4 /CMM (0.1-1.30); MONOCYTES % (AUTO) 5.4 % (2.0-12.0); NEUTROPHILS # (AUTO) 6.3 /CMM (1.8-8.9); NEUTROPHILS % (AUTO) 84.3 % (43.0-81.0); PLATELET COUNT (AUTO) 206 /CMM (150-450); RED BLOOD CELL COUNT(AUTO) 2.59 MIL/uL (4.0-5.2); WHITE BLOOD COUNT (AUTO) 7.5 K/uL (4.3-11.0)
[2019-08-15 06:51] LABS: BILIRUBIN,TOTAL 0.6 mg/dL (0.2-1.0); CALCIUM, SERUM 7.8 mg/dL (8.5-10.1); CREATININE 0.6 mg/dL (0.6-1.3); MAGNESIUM 1.7 mg/dL (1.8-2.4); PHOSPHORUS 2.4 mg/dL (2.5-4.9); POTASSIUM 3.4 mmol/L (3.5-5.1); TOTAL PROTEIN, SERUM 5.5 g/dL (6.4-8.2)
[2019-08-15] MEDS: DOCUSATE SODIUM LIQ 100 MG/10 ML UDC PO SCH (08:38)
--- NOTE | 2019-08-15 08:38 | NUR ---
WOUND CARE CONSULT: PT SEEN FOR RE-EVALUATION OF SACRAL DEEP TISSUE INJURY WHICH EXTENDS TO BUTTOCKS, NOW IN EVOLUTION, PRESENT ON ADMISSION. RECOMMEND SURGICAL CONSULT DR REDDY NOTIFIED OF CONSULT REQUEST. RECOMMENDATIONS MADE FOR SKIN PROTECTION. DISCUSSED WITH NURSING STAFF. PT ON JALEESA ISOFLEX LOW AIRLOSS BED. MD IN AGREEMENT WITH PLAN OF CARE.
[2019-08-15] MEDS: CYANOCOBALAMIN 500 MCG TABLET PO SCH (08:39)
[2019-08-15] MEDS: CHOLECALCIFEROL 1,000 UNIT TABLET (VIT D3) PO SCH (08:39)
[2019-08-15] MEDS: GABAPENTIN 300 MG CAPSULE PO SCH ×3 (08:39→17:37)
[2019-08-15] MEDS: MULTIVIT W/MINERALS 1 TAB TABLET PO SCH (08:39)
[2019-08-15 09:09] VITALS: BP_SYST 128; BP_SYST 142; BP_DIAS 68
[2019-08-15] MEDS ORDERED: POTASSIUM PHOSPHATE MM 15 MMOL in IV NS 0.9% 250 ML IV SCH (09:15)
[2019-08-15] MEDS: CEFAZOLIN 2 GM in IV D5W 100 ML IV SCH ×2 (09:48→20:05)
[2019-08-15] MEDS: PANTOPRAZOLE 40 MG VIAL IV SCH ×2 (10:05→17:36)
[2019-08-15] MEDS: ASPIRIN 300 MG/SUPP.RECT RC SCH (10:05)
[2019-08-15] MEDS: NITROGLYCERIN 30 GM TUBE TP SCH ×2 (10:07→20:42)
[2019-08-15] MEDS: Z GUARD REMEDY 2 OZ OINT TP SCH ×2 (10:17→20:44)
[2019-08-15] MEDS: Magnesium 1GM/D5W 100ML PREMIX 100 ML IV SCH ×2 (10:47→12:09)
--- NOTE | 2019-08-15 12:30 | NUR ---
speech tx in and swallow eval. done.pt. tolerated well.
--- NOTE | 2019-08-15 13:00 | NUR ---
pt. had mg replacement and now receiving pot. phosphate replacement.
[2019-08-15 16:59] VITALS: BP 113/56
--- NOTE | 2019-08-15 19:44 | NUR ---
MS RN OPENING NOTES RECEIVED PATIENT RESTING IN BED COMFORTABLY; A/OX1 OPENS EYES; BREATHING EVEN AND UNLABORED; PATIENT ON 2L NC TOLERATING WELL; NO SOB NOTED; ILAN PICC LINE INTACT AND PATENT; FLUSHING WELL; NO S/S OF REDNESS OR INFILTRATION NOTED; ANDERSON INTACT; FLOWING YELLOW OUTPUT; SAFETY PRECAUTIONS IMPLEMENTED; BED LOCKED IN LOW POSITION; SIDE RAILS X2; CALL LIGHT WITHIN REACH; WILL CONT TO MONITOR
[2019-08-15 20:00] VITALS: BP 114/58
--- NOTE | 2019-08-15 20:42 | NUR ---
MS RN NOTES NITROGLYCERIN OINTMENT NON-ADMINISTERED 1999 BP: 114/58 RECHECKED 2040 BP: 112/53 HOLDING MED D/T BP, LOW DIASTOLIC PRESSURE; WILL CONT TO MONITOR
--- NOTE | 2019-08-16 06:34 | NUR ---
MS RN CLOSING NOTES PATIENT RESTING IN BED COMFORTABLY; A/OX1, CONFUSED; MAINTAINED LOC THROUGHOUT NIGHT; NO CHANGES IN LOC AT THIS TIME; PATIENT ON 2L NC, TOLERATING WELL; NO SOB NOTED; NO DISTRESS NOTED; BREATHING EVEN AND UNLABORED; ILAN PICC LINE INFUSING NS @ 50ML/HR; PATIENT TOLERATING IVF WELL; NO S/S OF INFILTRATION NOTED; ANDERSON IN PLACE AND FLOWING YELLOW OUTPUT; ALL NEEDS RENDERED; SAFETY PRECAUTION IN PLACE; BED LOCKED IN LOW POSITION; SIDE RAILS X2; WILL ENDORSE AMAN TO ONCOMING SHIFT
--- NOTE | 2019-08-16 07:27 | NUR ---
MS/RN OPENING NOTES Patient resting in bed, confused, A&O x1. Patient on 2L oxygen via NC, no SOB noted. Breathing even and non-labored. No respiratory or cardiac distress noted. Patient reports no pain/discomfort noted. ILAN PICC line in place, NS running @ 50mL/hr. No s/s of infection or infiltration noted. Hanley cath in place. Urine is clear and yellow. Fall precautions maintained. Will continue with current medical management.
[2019-08-16] MEDS: IV NS 0.9% 1,000 ML IV PRN (07:46)
[2019-08-16 08:00] VITALS: BP 140/62
[2019-08-16] MEDS: CYANOCOBALAMIN 500 MCG TABLET PO SCH (08:04)
[2019-08-16] MEDS: DOCUSATE SODIUM LIQ 100 MG/10 ML UDC PO SCH (08:04)
[2019-08-16] MEDS: CHOLECALCIFEROL 1,000 UNIT TABLET (VIT D3) PO SCH (08:04)
[2019-08-16] MEDS: MULTIVIT W/MINERALS 1 TAB TABLET PO SCH (08:04)
[2019-08-16] MEDS: PANTOPRAZOLE 40 MG VIAL IV SCH ×2 (08:04→16:23)
[2019-08-16] MEDS: GABAPENTIN 300 MG CAPSULE PO SCH ×3 (08:04→16:23)
[2019-08-16] MEDS: Z GUARD REMEDY 2 OZ OINT TP SCH (08:05)
[2019-08-16] MEDS: ASPIRIN 300 MG/SUPP.RECT RC SCH (08:06)
[2019-08-16] MEDS: NITROGLYCERIN 30 GM TUBE TP SCH (08:14)
[2019-08-16 08:36] LABS: CALCIUM, SERUM 7.6 mg/dL (8.5-10.1); CREATININE 0.6 mg/dL (0.6-1.3); POTASSIUM 3.4 mmol/L (3.5-5.1)
[2019-08-16] MEDS: CEFAZOLIN 2 GM in IV D5W 100 ML IV SCH (08:36)
[2019-08-16 08:39] LABS: BASOPHILS % (AUTO) 0.3 % (0.0-2.0); EOSINOPHILS % (AUTO) 0.3 % (0.0-6.0); HEMATOCRIT 21 % (33-45); HEMOGLOBIN 7.2 g/dL (11.5-14.8); LYMPHOCYTES # (AUTO) 0.8 /CMM (0.8-4.8); LYMPHOCYTES % (AUTO) 16.3 % (20.0-44.0); MEAN CORPUSCULAR HGB CONC 34 g/dl (31.0-36.0); MEAN CORPUSCULAR VOLUME 100 fL (82-100); MONOCYTES # (AUTO) 0.3 /CMM (0.1-1.30); MONOCYTES % (AUTO) 6.2 % (2.0-12.0); NEUTROPHILS # (AUTO) 3.9 /CMM (1.8-8.9); NEUTROPHILS % (AUTO) 76.9 % (43.0-81.0); PLATELET COUNT (AUTO) 192 /CMM (150-450); RED BLOOD CELL COUNT(AUTO) 2.14 MIL/uL (4.0-5.2)
[2019-08-16] MEDS ORDERED: POTASSIUM CHLORIDE 20 MEQ TAB.PRT.SR PO SCH (10:00)
--- NOTE | 2019-08-16 10:08 | NUR ---
MS/RN - Notes (K-Dur) Unable to give potassium tablet (K-Dur) d/t pt is on pureed, per pharmacy it will be switched to potassium powder.
[2019-08-16] MEDS ORDERED: POTASSIUM CHLORIDE 20 MEQ POWDER PACKET PO ONE (11:00)
[2019-08-16] MEDS ORDERED: CEPH-569 PO (12:46)
--- NOTE | 2019-08-16 13:00 | NUR ---
MS/RN NOTE Doctor Tasha with order for discharge, made aware of low h&h 7.2 and 21, no s/s of bleeding noted.
[2019-08-16 16:00] VITALS: BP 128/87
--- NOTE | 2019-08-16 17:00 | NUR ---
MS/RN NOTES Patient became agitated, combative, and hitting staff when asked skin pictures to be taken on the sacral area, no changes noted from pictures that was taken yesterday.
--- NOTE | 2019-08-16 17:30 | NUR ---
MS/RN Note Patient about to be discharged and picked up by ambulance at 1800. Gave report to Sarah, nursing supervisor covering and lining of [facility]. Discussed patient's plan of care and discharge instructions. Reinforced follow up visit with SNF MD. She verbalized understanding. Reminded her to call our unit if she has any more questions about patient or plan of care.
[2019-08-16] MEDS: ACETAMINOPHEN 325 MG TABLET PO PRN (18:05)
--- NOTE | 2019-08-16 18:16 | NUR ---
MS/RN UPDATE Patient spiked a low-grade temperature of 100.4, tylenol given and cooling measures rendered. Doctor Tasha made aware and he orders discharge to proceed and continue.
--- NOTE | 2019-08-16 18:36 | NUR ---
MS/LEAD RIDER NOTE Patient picked up by ambulance at 1835 to be transported to [facility]. Patient is A&O X 1, confused. Temperature went down to 99.1, VSS. Patient on 2L oxygen via NC, breathing even and non-labored, no SOB noted. No respiratory or cardiac distress noted. ILAN PICC line in place, intact and flushing well. Hanley cath in place, patent and intact. Patient left hospital with their valuables and discharge instructions with them.
== END 2019-08-16 18:32 | DRG 871 ==
LOC: ER 12:23 → TELE1 15:32 → ICU 15:49 → TELE 08-06 08:15 → MED 08-06 11:39
PROVIDERS: ADMIT Nurse Practitioner Acute Care; ATTEND Nurse Practitioner Acute Care
PROC: 0DB68ZX Excision of Stomach, Via Natural or Artificial Opening Endoscopic, Diagnostic (ICD-10-PCS; principal; 2019-08-09)
DX: A40.0 Sepsis due to streptococcus, group A (principal); R65.21 Severe sepsis with septic shock; N17.0 Acute kidney failure with tubular necrosis; I21.A1 Myocardial infarction type 2; E43 Unspecified severe protein-calorie malnutrition; J18.9 Pneumonia, unspecified organism; G93.41 Metabolic encephalopathy; M62.82 Rhabdomyolysis; K80.00 Calculus of gallbladder with acute cholecystitis without obstruction; N39.0 Urinary tract infection, site not specified; E87.0 Hyperosmolality and hypernatremia; E87.2 Acidosis; I50.42 Chronic combined systolic (congestive) and diastolic (congestive) heart failure; R13.10 Dysphagia, unspecified; D64.9 Anemia, unspecified; E87.6 Hypokalemia; D69.6 Thrombocytopenia, unspecified; I11.0 Hypertensive heart disease with heart failure; K21.9 Gastro-esophageal reflux disease without esophagitis; Z79.82 Long term (current) use of aspirin; Z79.899 Other long term (current) drug therapy; Z79.51 Long term (current) use of inhaled steroids; D63.8 Anemia in other chronic diseases classified elsewhere; L89.156 Pressure-induced deep tissue damage of sacral region; K82.8 Other specified diseases of gallbladder; K62.89 Other specified diseases of anus and rectum; K29.70 Gastritis, unspecified, without bleeding; K59.00 Constipation, unspecified; F20.9 Schizophrenia, unspecified; I71.4 Abdominal aortic aneurysm, without rupture; I70.8 Atherosclerosis of other arteries; I70.0 Atherosclerosis of aorta; F41.9 Anxiety disorder, unspecified; Y95 Nosocomial condition; D50.9 Iron deficiency anemia, unspecified; E86.0 Dehydration; E78.5 Hyperlipidemia, unspecified; E83.42 Hypomagnesemia; F03.90 Unspecified dementia, unspecified severity, without behavioral disturbance, psychotic disturbance, mood disturbance, and anxiety; F09 Unspecified mental disorder due to known physiological condition; G47.00 Insomnia, unspecified; M43.16 Spondylolisthesis, lumbar region; F39 Unspecified mood [affective] disorder; K40.90 Unilateral inguinal hernia, without obstruction or gangrene, not specified as recurrent
CPT/HCPCS: 36415; 36569; 36600; 62270; 70450-TC; 70551-TC; 71045-TC; 74181-TC; 76705-TC; 78226; 80048-TC; 80053-TC; 80061-TC; 80076-TC; 80202-TC; 81000-TC; 82272-TC; 82533; 82550-TC; 82553; 82570-TC; 82728-TC; 82803-TC; 83540-TC; 83605-TC; 83615-TC; 83690-TC; 83735-TC; 83880; 83970; 84100-TC; 84155; 84155-TC; 84165; 84300-TC; 84439-TC; 84443-TC; 84484-TC; 85025-TC; 85027-TC; 85378-TC; 85730-TC; 86140-TC; 86850-TC; 86921-TC; 87040-TC; 87081-TC; 87086-TC; 87186-TC; 88305-TC; 88312-TC; 92526; 92611-TC; 93307-TC; 95819-TC; 97530-TC; A4216; A6253; A9537; C1751; C9113; C9132; G0378; J0690; J0696; J1720; J2185; J2405; J2543; J2916; J3370; J3475; J3480; J3490; J7030; J7040; J7042; J7050; J7060; J7070; U0003-CS

== ENCOUNTER 2019-11-24 10:25 | Inpatient (IN) | payer MEDICARE, OTHER ==
[~2019-11-24] VITALS: Ht 149.9 cm; Wt 47.6 kg
[~2019-11-24 10:25] MED LIST changes: -ACID1TAB12 PO; -ALBU1.257 NEB; +CEPH-569 PO; +CHOL200026 PO; +CYAN-51 PO; +DOCU50LI PO; -FURO-145 PO; +GABA300C PO; +HALO5TAB PO; -HYDR-4384 PO; +MAG-55 PO; +MEGE40TA5 PO; +MELA3TAB41 PO; -METO25TA6 PO; -MIRT15TA PO; +MULT-439 PO; +OMEG1CAP55 PO; -QUET25TA PO; -TRAM50TA2 PO
[2019-11-24] MEDS ORDERED: IV NS 0.9% 500 ML BAG IV ONE (10:30)
[2019-11-24] MEDS ORDERED: ONDANSETRON HCL/PF 4 MG/2 ML VIAL IVP ONE (10:30)
[2019-11-24] MEDS ORDERED: ONDANSETRON HCL/PF 4 MG/2 ML VIAL ONE (10:58)
[2019-11-24 10:59] LABS: BASOPHILS % (AUTO) 0.2 % (0.0-2.0); HEMATOCRIT 36 % (33-45); HEMOGLOBIN 11.7 g/dL (11.5-14.8); LYMPHOCYTES # (AUTO) 1.2 /CMM (0.8-4.8); LYMPHOCYTES % (AUTO) 8.8 % (20.0-44.0); MEAN CORPUSCULAR HGB CONC 32 g/dl (31.0-36.0); MEAN CORPUSCULAR VOLUME 97 fL (82-100); MONOCYTES # (AUTO) 0.5 /CMM (0.1-1.30); MONOCYTES % (AUTO) 3.7 % (2.0-12.0); NEUTROPHILS # (AUTO) 11.7 /CMM (1.8-8.9); NEUTROPHILS % (AUTO) 87.3 % (43.0-81.0); PLATELET COUNT (AUTO) 274 /CMM (150-450); RED BLOOD CELL COUNT(AUTO) 3.74 MIL/uL (4.0-5.2); WHITE BLOOD COUNT (AUTO) 13.5 K/uL (4.3-11.0)
[2019-11-24] MEDS ORDERED: ONDANSETRON HCL/PF - ER 4 MG/2 ML VIAL IV ONE (11:00)
--- NOTE | 2019-11-24 11:09 | NUR ---
MARY FROM SNF, SENT BY DR. ESCALANTE FOR FURTHER EVAL ABNORMAL XRAY RESULT. PT NONVERBAL, EYES CLOSED. VOMITED PER EMS X1. PT SEEN & EVAL'D BY DR. FAULKNER. PLACED ON EDITING CLERK, ST. MEDICATED ORDERED, PT SUSANA WELL. WILL CONT TO MONITOR.
[2019-11-24 11:13] LABS: ALANINE AMINOTRANSFERASE 36 U/L (12-78); ALBUMIN 3.6 g/dL (3.4-5.0); ALKALINE PHOSPHATASE 97 U/L (46-116); ASPARTATE AMINOTRANSFERASE 19 U/L (15-37); BILIRUBIN,DIRECT 0.1 mg/dL (0.0-0.2); BILIRUBIN,TOTAL 0.4 mg/dL (0.2-1.0); CARBON DIOXIDE 25 mmol/L (21-32); CHLORIDE 98 mmol/L (98-107); CREATININE 2.8 mg/dL (0.6-1.3); GLUCOSE 162 mg/dL (74-106); LIPASE 112 U/L (73-393); POTASSIUM 5.9 mmol/L (3.5-5.1); SODIUM SERUM 138 mmol/L (136-145); TOTAL PROTEIN, SERUM 8.2 g/dL (6.4-8.2)
[2019-11-24] MEDS ORDERED: AMIN30LI27 PO (11:13)
[2019-11-24] MEDS ORDERED: ZINC1CAP2 PO (11:13)
[2019-11-24] MEDS ORDERED: BACL10TA PO (11:13)
[2019-11-24] MEDS ORDERED: FERR325T23 PO (11:13)
[2019-11-24] MEDS ORDERED: MAGN400O6 PO (11:13)
[2019-11-24] MEDS ORDERED: ONDA4TAB5 PO (11:13)
[2019-11-24] MEDS ORDERED: ASCO-352 PO (11:13)
[2019-11-24] MEDS ORDERED: CRAN450C PO (11:13)
[2019-11-24] MEDS ORDERED: DOCU250C14 PO (11:13)
[2019-11-24 11:15] LABS: UREA NITROGEN, BLOOD 104 mg/dL (7-18)
[2019-11-24] MEDS ORDERED: PIPE3.379 IV (11:19)
--- NOTE | 2019-11-24 11:29 | NUR ---
MOVE SHEET SUBMITTED AND CALLED FOR TELE BED.
[2019-11-24] MEDS ORDERED: IV NS 0.9% 1,000 ML BAG IV ONE (11:30)
[2019-11-24 12:08] LABS: APPEARANCE,URINE CLOUDY (CLEAR); COLOR,URINE DARK YELLOW (YELLOW)
[2019-11-24 12:09] LABS: BILIRUBIN,URINE TRACE (NEGATIVE); BLOOD, URINE 3+ Ery/uL (NEGATIVE); KETONES,URINE TRACE (NEGATIVE); LEUKOCYTE ESTERASE ,URINE 3+ (NEGATIVE); NITRITE, URINE POSITIVE (NEGATIVE); PROTEIN,URINE 1+ mg/dl (NEGATIVE); UGLUCOSE NEGATIVE (NEGATIVE); UROBILINOGEN,URINE 0.2 EU/dL (0.2)
[2019-11-24 12:10] LABS: BACTERIA,URINE 3+ /HPF (None Seen); RBC,URINE 51-80 /HPF (0-2); SQUAMOUS EPITHELIAL CELL,UR Moderate /HPF (None Seen); WBC,URINE 81-100 /HPF (0-3)
[2019-11-24 12:11] LABS: URINE AMORPHOUS PHOSPHATES Moderate /HPF (None Seen)
--- NOTE | 2019-11-24 13:21 | NUR ---
REPORT GIVEN TO RAQUEL CARTER FOR AMAN.
--- NOTE | 2019-11-24 15:25 | NUR ---
HOSPITALITY ASSOCIATEPUBLIC RELATIONS ACCOUNT EXECUTIVE NOTE PATIENT ARRIVED FROM ER BY SAMMY. TRANSFERRED TO BED. PATIENT IN BED RESTING COMFORTABLY. PATIENT IN NO ACUTE DISTRESS. NO SOB NOTED. PATIENT BREATHING IS EVEN AND UNLABORED. PATIENT ON CARDIAC MONITORING READING SINUS TACHYCARDIA HR 104. PATIENT BED ALARM IS ON. SAFETY PRECAUTIONS IN PLACE. PATIENT BED IS LOCKED AND IN LOWEST POSITION. CALL LIGHT WITHIN REACH. WILL CONTINUE TO MONITOR. DR. ESCALANTE MADE AWARE, AWAITING ORDERS.
[2019-11-24 16:00] VITALS: BP 102/59
[2019-11-24] MEDS ORDERED: ZOLPIDEM TARTRATE 5 MG TABLET PO PRN (17:00)
[2019-11-24] MEDS ORDERED: ACETAMINOPHEN 325 MG TABLET PO PRN (17:00)
[2019-11-24] MEDS ORDERED: HYDROCODONE/APAP 5/325MG TABLET PO PRN (17:00)
[2019-11-24] MEDS ORDERED: MORPHINE SULFATE INJ 2 MG/ML DISP.SYRIN IV PRN (17:00)
[2019-11-24] MEDS ORDERED: MAG HYDROX/AL HYDROX/SIMETH 30 ML UDC PO PRN (17:00)
[2019-11-24] MEDS ORDERED: ONDANSETRON HCL/PF 4 MG/2 ML VIAL IVP PRN (17:00)
[2019-11-24] MEDS ORDERED: Z GUARD REMEDY 2 OZ OINT TP PRN (17:00)
[2019-11-24] MEDS ORDERED: MAGNESIUM HYDROXIDE 30 ML UDC PO PRN (17:00)
--- NOTE | 2019-11-24 17:33 | NUR ---
MS RN NOTE INFORMED DR. ESCALANTE THAT VTE SCORE IS >5. PER DR. ESCALANTE NO CHEMICAL PROPHYLAXIS AT THIS TIME IN CASE PATIENT NEEDS SURGERY FOR SBO.
[2019-11-24] MEDS ORDERED: PIPERACILLIN /TAZOBACTAM 3.375 G in IV D5W 50 ML IV SCH (18:00)
[2019-11-24] MEDS: PIPERACILLIN /TAZOBACTAM 2.25 G in IV D5W 50 ML IV SCH ×2 (18:01→23:14)
[2019-11-24] MEDS: IV 1/2NS 1000 ML 1,000 ML IV PRN (18:02)
--- NOTE | 2019-11-24 18:57 | NUR ---
PAINTER INTERIOR FINISH CLOSING NOTE PATIENT IN BED RESTING COMFORTABLY. PATIENT IN NO ACUTE DISTRESS. NO SOB NOTED. PATIENT BREATHING IS EVEN AND UNLABORED. PATIENT ON CARDIAC MONITORING READING SINUS TACHYCARDIA HR 110. PATIENT KEPT CLEAN, DRY, AND COMFORTABLE THROUGHOUT SHIFT. TURNED AND REPOSITIONED Q2H. PATIENT BED ALARM IS ON. SAFETY PRECAUTIONS IN PLACE. PATIENT BED IS LOCKED AND IN LOWEST POSITION. CALL LIGHT WITHIN REACH. WILL ENDORSE CARE TO PM SHIFT FOR AMAN.
--- NOTE | 2019-11-24 19:30 | NUR ---
SENIOR QA AUTOMATION ENGINEER RECEIVE PT IN BED NON VERBAL OPENS EYES ON 2LPM VIA NC NOT IN DISTRESS, SAFETY MEASURES AT ALL TIMES. WILL CONT TO MONITOR ST 112'S HR IN DIRECTOR OF PRODUCT DEVELOPMENT
[2019-11-24 20:00] VITALS: BP 99/60
[2019-11-25] VITALS (7 sets, daily range): BP systolic 102–136; BP diastolic 53–86
[2019-11-25] MEDS: IV 1/2NS 1000 ML 1,000 ML IV PRN ×3 (03:30→18:30)
[2019-11-25] MEDS: PIPERACILLIN /TAZOBACTAM 2.25 G in IV D5W 50 ML IV SCH ×4 (05:27→23:01)
--- NOTE | 2019-11-25 06:11 | NUR ---
SYSTEM DEVELOPMENT ENGINEER AM CARE RENDERED, MONITORED ACCORDINGLY PT STABLE AND NOT IN DISTRESS, PT SLEPT WELL. SR 80 IN TELE MONITOR ON CARDIAC MONITORING,KEPT CLEAN, DRY AND COMFORTABLE AT ALL TIMES. GOOD SKIN CARE AT ALL TIMES. NEEDS ATTENDED AND ANTICIPATED, SAFETY MEASURES AT ALL TIMES. WILL ENDORSE TO NEXT SHIFT.
--- NOTE | 2019-11-25 07:15 | NUR ---
MS RN NOTES PATIENT IN BED EYES CLOSED, RESPOND TO VERBAL AND TACTILE STIMULI. NO ACUTE DISTRESS NOTED. BREATHING UNLABORED. NO SOB NOTED. NO FACIAL GRIMACING NOTED. IV ACCESS PATENT AND INTACT, NO REDNESS, NO BLEEDING NOTED. SAFETY MEASURES IN PLACE, CALL LIGHT WITHIN REACH. WILL CONTINUE TO MONITOR ACCORDINGLY.
[2019-11-25 07:24] LABS: CALCIUM, SERUM 8.4 mg/dL (8.5-10.1); CARBON DIOXIDE 21 mmol/L (21-32); CHLORIDE 106 mmol/L (98-107); CREATININE 1.8 mg/dL (0.6-1.3); GLUCOSE 102 mg/dL (74-106); MAGNESIUM 2.3 mg/dL (1.8-2.4); PHOSPHORUS 6.2 mg/dL (2.5-4.9); POTASSIUM 4.6 mmol/L (3.5-5.1); SODIUM SERUM 141 mmol/L (136-145)
[2019-11-25 07:27] LABS: UREA NITROGEN, BLOOD 104 mg/dL (7-18)
[2019-11-25 07:33] LABS: EOSINOPHILS % (AUTO) 0.7 % (0.0-6.0); HEMATOCRIT 29 % (33-45); HEMOGLOBIN 9.4 g/dL (11.5-14.8); LYMPHOCYTES # (AUTO) 1.3 /CMM (0.8-4.8); LYMPHOCYTES % (AUTO) 22.8 % (20.0-44.0); MEAN CORPUSCULAR HGB CONC 32 g/dl (31.0-36.0); MEAN CORPUSCULAR VOLUME 97 fL (82-100); MONOCYTES # (AUTO) 0.4 /CMM (0.1-1.30); MONOCYTES % (AUTO) 6.1 % (2.0-12.0); NEUTROPHILS # (AUTO) 4.1 /CMM (1.8-8.9); NEUTROPHILS % (AUTO) 70.4 % (43.0-81.0); PLATELET COUNT (AUTO) 155 /CMM (150-450); RED BLOOD CELL COUNT(AUTO) 3.02 MIL/uL (4.0-5.2); WHITE BLOOD COUNT (AUTO) 5.8 K/uL (4.3-11.0)
[2019-11-25 07:39] LABS: CHOLESTEROL 122 mg/dL (<200); HDL CHOLESTEROL 32 mg/dL (40-60); LDL 57 mg/dL (0-99); THYROID STIMULATING HORMONE 0.849 uIU/mL (0.358-3.74); TRIGLYCERIDES 179 mg/dL (30-150)
--- NOTE | 2019-11-25 09:07 | NUR ---
Tech informed RN Dixie that a video swallow is needed to find out if patient can swallow contrast safely since no NG tube is in place. Dr. Cabrera, Radiologist, suggested.
--- NOTE | 2019-11-25 10:01 | NUR ---
CHIEF CREATIVE OFFICER NOTES RADIOLOGY CALLED SMALL BOWEL FOLLOW TROUGH UNABLE TO DO YET , PATIENT NEEDS ST EVAL, NOTIFIED DR VALDEZ MADE AWARE WITH NEW ORDER FOR ST EVAL to evaluate swallowing ability , ST IGNACIO AWARE WILL SEE PATIENT
--- NOTE | 2019-11-25 10:40 | NUR ---
.NET DEVELOPER NOTES ST EVAL DONE BY ST IGNACIO , PATIENT UNABLE TO SWALLOW , FAILED TEST.
--- NOTE | 2019-11-25 10:53 | NUR ---
FRONT SERVICES AGENT NOTES PATIENT SEEN AND EVALUATED BY DR VALDEZ , MADE AWARE THAT PATIENT SEEN BY ST AND UNABLE TO SWALLOW, FAILED TEST AND UNABLE TO DO THE SMALL BOWEL FOLLOW THROUGH AT THIS TIME , DR ESCALANTE WILL NOTIFY DR MEYER. NOTIFIED DR ESCALANTE ALSO REGARDING MEDICATION RECONCILIATION NEEDS TO BE DONE, SAID SHE WILL LOOK INTO IT. RECEIVED NEW ORDER FOR Heparin Sodium, Porcine 5,000 UNITS SQ Q12HR TO START TONIGHT AT 2100, ORDERS CLARIFIED AND READ BACK WITH DR ESCALANTE, NOTED AND CARRIED OUT.
[2019-11-25] MEDS ORDERED: HEPARIN SODIUM, PORCINE 5000 UNITS/1 ML VIAL SQ SCH (11:00)
--- NOTE | 2019-11-25 13:57 | NUR ---
FINISHED CARPET INSPECTOR NOTES RECEIVED NEW ORDER FROM DR VALDEZ TO INSERT NGT FOR SMALL BOWEL FOLLOW THROUGH AND KEEP UNTIL DANIELA MCINTOSH SEES THE PATIENT AND CXR AFTER INSERTION TO CONFIRM PLACEMENT, ORDER CLARIFIED AND READ BACK WITH DR ESCALANTE, NOTED AND CARRIED OUT.
--- NOTE | 2019-11-25 14:18 | NUR ---
TOP ICER NOTED INSERTED NGT ON THE RIGHT NARES POSITIVE PLACEMENT ON AUSCULTATION , FOR CHEST X-RAY POST NGT INSERTION TO CONFIRM PLACEMENT.
--- NOTE | 2019-11-25 15:10 | NUR ---
WIND TURBINE PERFORMANCE ENGINEER NOTES RECEIVED A CALL FROM RADIOLOGIST SAID NEED TO REINSERT NGT.
--- NOTE | 2019-11-25 15:20 | NUR ---
DENIAL RESOLUTION SPECIALIST NOTES REMOVED RIGHT NARES NGT, PATIENT TOLERATED WELL
--- NOTE | 2019-11-25 16:30 | NUR ---
LAST CHALKER NOTED INSERTED NGT ON THE LEFT NARES POSITIVE PLACEMENT ON AUSCULTATION, FOR CHEST X-RAY POST NGT INSERTION TO CONFIRM PLACEMENT.
--- NOTE | 2019-11-25 17:50 | NUR ---
REHABILITATION SERVICES DIRECTOR NOTES PATIENT TRANSPORTED TO [address] [place] [address] VIA ACLS. PATIENT AWAKE NON VERBAL. NO ACUTE DISTRESS NOTED. BREATHING UNLABORED. NO SOB NOTED. NO FACIAL GRIMACING NOTED. IV ACCESS PATENT AND INTACT, NO REDNESS, NO BLEEDING NOTED. SAFETY MEASURES IN PLACE. BELONGING AND MEDICATION TAKEN WITH THE PATIENT. AWAITING FOR CHEST X-RAY RESULT. REPORT GIVEN TO SILVESTRE GARCÍA.
--- NOTE | 2019-11-25 18:15 | NUR ---
TRANSFER NOTES PATIENT IS AWAKE A/O X 1 IN BED CALM WITH NO SIGNS OF DISTRESS AND NO SOB ON 2L OF NASAL CANNULA. IV R FA #22G INTACT RUNNING 1/2 NS AT 125 MLS/HR AND IV L HAND #18G. ANDERSON CATHETER INTACT. NGT INTACT AT 60 CM TAPED AROUND NOSE. X-RAY REPORT SHOWS COILING OF THE NGT PULLED OUT 4 CM AND NOW MEASURES AT 60CM. CONFIRMED PLACEMENT WITH AUSCULTATION. CALLED RADIOLOGY TO LET THEM KNOW PATIENT IS READY FOR SBFT AND SPOKE WITH BJORN. SAFETY MEASURES ARE APPLIED BED IS IN A LOW AND LOCKED POSITION. SIDE RAILS UP X 2 FOR SAFETY. CALL LIGHT WITHIN REACH. WILL ENDORSE TO THE NEXT COMPOSITION TILE LAYER.
[2019-11-25] MEDS ORDERED: DIATR MEGLU/DIATRIZOATE SODIUM 120 ML BOTTLE (GASTROGRAPHIN) ONE (19:00)
--- NOTE | 2019-11-25 20:00 | NUR ---
MS RN OPENING NOTES PATIENT IS NOT IN THE ROOM. PATIENT IS IN RADIOLOGY FOR SBFT PROCEDUR.
--- NOTE | 2019-11-25 20:46 | NUR ---
MS RN NOTES RECEIVED PATIENT IN BED FROM RADIOLOGY, NON-VERBAL, EYES OPENED, O2 AT 2LPM VIA NASAL CANNULA, UNLABORED BREATHING, NO SIGNS OF RESPIRATORY DISTRESS, NGT TUBE ON LEFT NOSTRIL, LEFT HAND #18G, RFA, #22G, ANDERSON CATH ATTACHED WITH TEA COLORED URINE, SIDE RAILS UP.
[2019-11-25] MEDS: HEPARIN SODIUM, PORCINE 5000 UNITS/1 ML VIAL SQ SCH (20:59)
--- NOTE | 2019-11-25 21:21 | NUR ---
OUTBOUND TELEMARKETING REPRESENTATIVE RICK WORTHINGTON FROM RADIOLOGY CALLED THAT THE PATIENT WILL HAVE ANOTHER PROCEDURE AT 0. AND HE TOLD ME NOT TO SUCTION PATIENT PER PROCEDURE UNLESS NEEDED.
[2019-11-26] VITALS (7 sets, daily range): BP systolic 126–189; BP diastolic 66–94
[2019-11-26] MEDS: IV 1/2NS 1000 ML 1,000 ML IV PRN ×3 (03:51→22:51)
[2019-11-26] MEDS: PIPERACILLIN /TAZOBACTAM 2.25 G in IV D5W 50 ML IV SCH ×2 (05:03→12:27)
--- NOTE | 2019-11-26 06:59 | NUR ---
NAME PLATE STAMPER CLOSING NOTES ENDORSED PATIENT IN BED, NON-VERBAL, EYES OPENED, O2 AT 2LPM VIA NASAL CANNULA, UNLABORED BREATHING, NO SIGNS OF RESPIRATORY DISTRESS, NGT TUBE ON LEFT NOSTRIL, LEFT HAND #18G, RFA, #22G, ANDERSON CATH ATTACHED WITH TEA COLORED URINE, DUE MEDS GIVEN, NO COMPLAINTS OF PAIN, SIDE RAILS UP FOR SAFETY.
--- NOTE | 2019-11-26 07:30 | NUR ---
DEPOSITION OPERATOR NOTES PT IN BED, AWAKE, EYES OPEN, NON VERBAL, NGT IN PLACE, NO SIGN OF PAIN OR DISTRESS, IV FLUIDS INFUSING WELL, REPOSITIONED FOR COMFORT, KEPT WARM AND COMFORTABLE IN BED.
[2019-11-26 07:37] LABS: BASOPHILS % (AUTO) 0.2 % (0.0-2.0); EOSINOPHILS % (AUTO) 0.7 % (0.0-6.0); HEMATOCRIT 30 % (33-45); HEMOGLOBIN 9.7 g/dL (11.5-14.8); LYMPHOCYTES # (AUTO) 0.8 /CMM (0.8-4.8); LYMPHOCYTES % (AUTO) 17.5 % (20.0-44.0); MEAN CORPUSCULAR HGB CONC 32 g/dl (31.0-36.0); MEAN CORPUSCULAR VOLUME 98 fL (82-100); MONOCYTES # (AUTO) 0.3 /CMM (0.1-1.30); MONOCYTES % (AUTO) 6.2 % (2.0-12.0); NEUTROPHILS # (AUTO) 3.4 /CMM (1.8-8.9); NEUTROPHILS % (AUTO) 75.4 % (43.0-81.0); PLATELET COUNT (AUTO) 151 /CMM (150-450); RED BLOOD CELL COUNT(AUTO) 3.08 MIL/uL (4.0-5.2); WHITE BLOOD COUNT (AUTO) 4.5 K/uL (4.3-11.0)
[2019-11-26 08:26] LABS: CALCIUM, SERUM 8.8 mg/dL (8.5-10.1); CREATININE 0.8 mg/dL (0.6-1.3); MAGNESIUM 2.5 mg/dL (1.8-2.4); PHOSPHORUS 3.5 mg/dL (2.5-4.9); POTASSIUM 3.5 mmol/L (3.5-5.1)
[2019-11-26] MEDS: HEPARIN SODIUM, PORCINE 5000 UNITS/1 ML VIAL SQ SCH ×2 (08:57→22:39)
[2019-11-26] MEDS: MEROPENEM 500 MG in IV NS 0.9% 50 ML IV SCH (16:54)
--- NOTE | 2019-11-26 19:00 | NUR ---
HALL SUPERVISOR NOTES PT IN BED, AWAKE, NON VERBAL, NO SIGN OF PAIN OR DISTRESS, TURNED AND REPOSITIONED FOR COMFORT, IV FLUIDS INFUSING WELL, F/C IN PLACE, WOUND CARE AND DRESSING CHANGE DONE, DUE MEDS GIVEN, PM CARE PROVIDED, ALL NEEDS ATTENDED.
--- NOTE | 2019-11-26 19:30 | NUR ---
TABLET REPAIR OPENING NOTES: RECEIVED PATIENT IN BED, AWAKE, NON- VERBAL. HOB ELEVATED AT ALL TIMES. NO S/S DISTRESS NOTED. NOT IN PAIN. BED ALARM ON. BED IN LOWEST AND LOCKED POSITION. WITH O2 AT 3L/MIN NASAL CANNULA. WITH NGT AT LEFT NARE INTACT SKIN IS WNL., NGT CLAMPED. WITH ANDERSON CATHETER INTACT WOITH CLEAR ROSIBEL COLORED URINE.
--- NOTE | 2019-11-26 20:36 | NUR ---
YO=020/94, UM=[id number], INFORMED DR RODAS,WITH ORDER MADE AND CARRIED-OUT.
[2019-11-26] MEDS ORDERED: CLONIDINE HCL 0.1 MG TABLET PO PRN (21:00)
[2019-11-26] MEDS ORDERED: hydrALAZINE HCL IV 20 MG VIAL IV PRN (21:30)
--- NOTE | 2019-11-26 22:13 | NUR ---
MED HYDRALAZINE IS OUT OF STOCK IN THE FLOOR, CHECKED IN MS2 THERE'S AVAILABLE, UNABLE TO ACCESS IT, CHARGE NURSE MADE AWARE.
--- NOTE | 2019-11-26 22:27 | NUR ---
PATIENT'S TEMP=99.0, ICE PACKS PLACED TO BOTH AXILLAE.
[2019-11-27] VITALS (24 sets, daily range): BP systolic 102–159; BP diastolic 53–85
--- NOTE | 2019-11-27 00:01 | NUR ---
turned and repositioned. offloaded.
--- NOTE | 2019-11-27 00:21 | NUR ---
INFORMED DR RODAS RE: LATEST V/S, AND O2 SAT, AND PATIENT IS USING ACCESORY MUSCLES FOR BREATHING, AND THE RHYTHM.
[2019-11-27] MEDS ORDERED: LORAZEPAM INJ 2 MG/ML VIAL IV PRN (00:30)
--- NOTE | 2019-11-27 00:44 | NUR ---
INFORMED DR RODAS RE: CRACKLING BREATHING SOUNDS STILL USING ACCESORY MUSCLE FOR BREATHING., O2 SAT= 94 ON 3L/MIN.
--- NOTE | 2019-11-27 01:11 | NUR ---
STAT CHEST XRAY DONE.
--- NOTE | 2019-11-27 01:19 | NUR ---
RT CAME FOR STAT ABG
[2019-11-27 01:25] LABS: ABG OXYGEN SATURATION 83.4 % (92.0-98.5); ABG PCO2 52.8 mmHg (35.0-45.0); ABG PH 7.088 (7.350-7.450); ABG PO2 60.2 mmHg (75.0-100.0); AaDO2 106.2 mmHg; COHb 0.5 % (0.5-1.5); MetHb 0.3 % (0.0-1.5); O2Hb 82.7 % (94.0-97.0); SITE, ABG Right Radial; VENT MODE, BG Nasal Cannula
--- NOTE | 2019-11-27 01:36 | NUR ---
VANDA RESULTS SENT TO
--- NOTE | 2019-11-27 01:59 | NUR ---
PATIENT TRANSFERRED TO ICU, REPORTS GIVEN TO DEREK.
--- NOTE | 2019-11-27 02:10 | NUR ---
ICU/RN PATIENT TRANSFERRED TO ICU FROM [facility] FROM RAQUEL GUTIERREZ. PATIENT WAS TRANSFERRED BY RT, CHARGE NURSE FROM [facility] AND [employer] SALES ASSOCIATE. RECEIVED CALL FROM ER MD FAULKNER ABOUT POSSIBLE INTUBATION PER ABG'S. PATIENT CURRENTLY WAS ON 2L OF 02 IN PRIOR FLOOR. SO KAUSHIK ORDERED TO TRY BIPAP FIRST AND REPEAT ABG'S IN 30 MIN. PATIENT CURRENTLY DOES NOT SEEM TO BE IN ANY RESPIRATORY DISTRESS. SATURATING AT 96%. VITALS STABLE. BED BATH GIVEN. IV OF LT HAND AND RFA #18 PATENT AND 1/2 NS INFUSING AT 125CC HR. FC IN PLACE WITH DARK GREENISH OUT PUT NOTICED. WOUND CARE DONE TO SACRAL AREA. ALL SAFETY PRECAUTIONS APPLIED. WILL CONTINUE TO MONITOR PATIENT.
--- NOTE | 2019-11-27 02:50 | NUR ---
ABG'S REPEATED AFTER BIPAP PLACEMENT, ADRIANNA WAS INFORMED ABOUT RESULTS AND NO NEW ORDERS GIVEN. WILL CONTINUE TO MONITOR.
[2019-11-27 03:06] LABS: ABG OXYGEN SATURATION 99.6 % (92.0-98.5); ABG PCO2 33.7 mmHg (35.0-45.0); ABG PH 7.266 (7.350-7.450); ABG PO2 297.8 mmHg (75.0-100.0); AaDO2 381.5 mmHg; COHb 0.5 % (0.5-1.5); MetHb 0.3 % (0.0-1.5); O2Hb 98.8 % (94.0-97.0); SITE, ABG Right Radial; VENT MODE, BG BiPAP 12/5
--- NOTE | 2019-11-27 03:45 | NUR ---
PATIENT SATURATING AT 100% WITH NO SIGNS OF RESPIRATORY DISTRESS. LUNGS AUSCULTATED LT SIDE WITH RHONCHI. BUT PATIENT DOES NOT SEEM TO BE IN ANY DISTRESS. WILL CONTINUE TO MONITOR.
[2019-11-27] MEDS: MEROPENEM 500 MG in IV NS 0.9% 50 ML IV SCH (04:14)
[2019-11-27] MEDS ORDERED: FUROSEMIDE 40 MG/4 ML VIAL IV ONE (04:30)
[2019-11-27 04:32] LABS: BASOPHILS % (AUTO) 0.2 % (0.0-2.0); HEMATOCRIT 33 % (33-45); HEMOGLOBIN 10.3 g/dL (11.5-14.8); LYMPHOCYTES # (AUTO) 0.5 /CMM (0.8-4.8); LYMPHOCYTES % (AUTO) 5.7 % (20.0-44.0); MEAN CORPUSCULAR HGB CONC 31 g/dl (31.0-36.0); MEAN CORPUSCULAR VOLUME 102 fL (82-100); MONOCYTES # (AUTO) 0.6 /CMM (0.1-1.30); MONOCYTES % (AUTO) 7.1 % (2.0-12.0); NEUTROPHILS # (AUTO) 7.2 /CMM (1.8-8.9); PLATELET COUNT (AUTO) 134 /CMM (150-450); RED BLOOD CELL COUNT(AUTO) 3.26 MIL/uL (4.0-5.2); WHITE BLOOD COUNT (AUTO) 8.3 K/uL (4.3-11.0)
[2019-11-27 04:58] LABS: CALCIUM, SERUM 8.9 mg/dL (8.5-10.1); CREATININE 0.7 mg/dL (0.6-1.3); MAGNESIUM 2.5 mg/dL (1.8-2.4); PHOSPHORUS 3.8 mg/dL (2.5-4.9); POTASSIUM 3.4 mmol/L (3.5-5.1)
--- NOTE | 2019-11-27 05:50 | NUR ---
NEW ANDERSON PLACED. LASIX GIVEN AT 0450 AND ASSESSED NO OUTPUT AFTER 30MIN. NEW ANDERSON ENTERED WITH VISUAL OUTPUT.
--- NOTE | 2019-11-27 07:36 | NUR ---
RN OPENING NOTE: RECEIVED PATIENT IN BED THIS MORNING. PATIENT IS AAOX0, OPENS EYES TO VOICE. ON BIPAP, TOLERATING SETTINGS WELL, SATING WELL. SR IN THE 90S NOTED ON BEDSIDE MONITOR. NO SIGNS OF ACUTE DISTRESS NOTED AT THIS TIME. ANDERSON DRAINING URINE. WOUND CARE PER ORDERS. NPO STATUS. #18 LH, #20 RFA, C/D/I, FLUSHING WELL, NO SIGNS OF COMPLICATIONS NOTED. SAFETY MEASURES IMPLEMENTED, BED IN LOWEST POSITION, LOCKED, SIDE RAILS UP, CALL LIGHT WITHIN REACH. WILL CONTINUE TO MONITOR PATIENT FOR CHANGES.
--- NOTE | 2019-11-27 07:54 | NUR ---
PT. RECEIVED ON BIPAP AND PLACED INTO 0.5 LPM O2 FLOW VIA NASAL CANNULA. BIPAP ON STAND BY @ BEDSIDE. Addendum: 11/27/19 at 0755 by GINA OCONNOR RT Amended: Links added.
[2019-11-27] MEDS: HEPARIN SODIUM, PORCINE 5000 UNITS/1 ML VIAL SQ SCH ×2 (08:04→21:39)
[2019-11-27] MEDS ORDERED: FUROSEMIDE 100 MG/10 ML VIAL IV ONE (09:00)
[2019-11-27] MEDS: IV D5W 1,000 ML IV PRN (09:23)
[2019-11-27 09:44] LABS: ABG BASE EXCESS -7.1 mmol/L; ABG OXYGEN SATURATION 95.3 % (92.0-98.5); ABG PCO2 27.8 mmHg (35.0-45.0); ABG PH 7.393 (7.350-7.450); ABG PO2 72.2 mmHg (75.0-100.0); AaDO2 58.6 mmHg; COHb 0.5 % (0.5-1.5); MetHb 0.3 % (0.0-1.5); O2Hb 94.5 % (94.0-97.0); SITE, ABG Right Radial; VENT MODE, BG NASAL CANNULA
[2019-11-27] MEDS: POTASSIUM CL. PREMIX PERIPHER. 50 ML IV SCH ×2 (10:44→11:49)
[2019-11-27] MEDS: MEROPENEM 500 MG in IV NS 0.9% 100 ML IV SCH (13:11)
--- NOTE | 2019-11-27 19:03 | NUR ---
RN CLOSING NOTE: PATIENT REMAINS IN BED. NO SIGNS OF ACUTE DISTRESS NOTED AT THIS TIME. SINUS TACHY IN THE 130S NOTED ON THE BEDSIDE MONITOR. SAFETY MEASURES IMPLEMENTED, BED IN LOWEST POSITION, LOCKED, SIDE RAILS UP, CALL LIGHT WITHIN REACH, ENDORSED TO RAQUEL REED FOR CONTINUITY OF CARE.
--- NOTE | 2019-11-27 19:36 | NUR ---
ICU/RN RECEIVED PATIENT CURRENTLY SHOWING SIGNS OF RESPIRATORY DISTRESS. PATIENT IS TACHYPNEIC RESPIRATIONS IN THE 30'S AND HR AT 140 ON BEDSIDE MONITOR. I WAS ABLE TO HAVE LITTLE COMMUNICATION WITH THE PATIENT. I ASKED HER IS SHE WAS IN PAIN SHE WAS ABLE TO SAY "NO". I ASKED HER IF SHED WAS HAVING DIFFICULTY BREATHING AND SHE WAS ABLE TO SAY "YES". PATIENT WAS CURRENTLY ON 5L OF O2 ON NASAL CANNULA. CALLED RT TO PUT PATIENT BACK ON BIPAP. WILL RESUME TO MONITOR FOR RESPIRATORY DISTRESS. IV INTACT LT HAND #18 AND RFA #20 PATENT AND FLUSHING. CURRENTLY D5W INFUSING AT 50ML/HR. FC IN PLACE WITH YELLOW CLEAR OUTPUT. PATIENT IS CONTRACTED. ALL SAFETY PRECAUTIONS APPLIED. PATIENT IS BEING MONITORED CLOSELY.
--- NOTE | 2019-11-27 19:50 | NUR ---
PATIENT SEEMS TO BE TOLERATING BIPAP 12/, RT 6, FIO2 75%. HR AT 120 WITH RESPIRATIONS AT 20. PATIENT LOOKS CALMER THAN FIRST ASSESSMENT. CONTINUE TO MONITOR.
--- NOTE | 2019-11-27 21:00 | NUR ---
EKG ORDERED. CLAY PIGEON LOADER NOTICED AFIB PERIOD. CURRENTLY PATIENT IS IN SINUS TACH WITH HR AT 130. EKG DONE NO AFIB SPOTTED. PATIENT IS SINUS TACH. WILL CONTINUE TO MONITOR.
--- NOTE | 2019-11-27 21:55 | NUR ---
PATIENT HR AT 107. NO SIGN OF DISTRESS. MORPHINE GIVEN PRIOR.
[2019-11-28] VITALS (24 sets, daily range): BP systolic 113–163; BP diastolic 60–88
[2019-11-28] MEDS: MEROPENEM 500 MG in IV NS 0.9% 100 ML IV SCH ×2 (00:29→14:01)
[2019-11-28 04:23] LABS: HEMATOCRIT 32 % (33-45); HEMOGLOBIN 10.7 g/dL (11.5-14.8); LYMPHOCYTES # (AUTO) 0.9 /CMM (0.8-4.8); LYMPHOCYTES % (AUTO) 16.5 % (20.0-44.0); MEAN CORPUSCULAR HGB CONC 33 g/dl (31.0-36.0); MEAN CORPUSCULAR VOLUME 96 fL (82-100); MONOCYTES # (AUTO) 0.5 /CMM (0.1-1.30); MONOCYTES % (AUTO) 8.1 % (2.0-12.0); NEUTROPHILS # (AUTO) 4.2 /CMM (1.8-8.9); NEUTROPHILS % (AUTO) 75.4 % (43.0-81.0); PLATELET COUNT (AUTO) 166 /CMM (150-450); RED BLOOD CELL COUNT(AUTO) 3.37 MIL/uL (4.0-5.2); WHITE BLOOD COUNT (AUTO) 5.6 K/uL (4.3-11.0)
[2019-11-28 04:47] LABS: ALBUMIN 2.8 g/dL (3.4-5.0); BILIRUBIN,TOTAL 0.3 mg/dL (0.2-1.0); CREATININE 0.8 mg/dL (0.6-1.3); PHOSPHORUS 1.8 mg/dL (2.5-4.9); POTASSIUM 2.9 mmol/L (3.5-5.1); TOTAL PROTEIN, SERUM 6.6 g/dL (6.4-8.2)
[2019-11-28] MEDS: IV D5W 1,000 ML IV PRN (05:06)
--- NOTE | 2019-11-28 06:42 | NUR ---
PATIENT TOLERATED NOCTURNAL BIPAP SATURATING AT 100% WITH NO RESPIRATORY DISTRESS. HR WAS MAINTAINED BETWEEN 90-105. RESPIRATIONS EVEN AND UNLABORED WITH NO SIGN OF SOB. WILL ENDORSE TO MORNING SHIFT NURSE FOR AMAN.
--- NOTE | 2019-11-28 07:05 | NUR ---
RN NOTES RECEIVED PT ON BED, ALERT , DOES NOT FOLLOW COMMAND, PT IS CONTRACTED, ON BIPAP, TOLERATING WELL, NO RESPIRATORY DISTRESS, NOTED, O2 SAT WNL , SR , HR IN 90'S , FOLY DRAINING TO GRAVITY, LT HAND IV G 18 AND RFA G 20, PATENT AND FLUSHING. CURRENTLY D5W INFUSING AT 50ML/HR. FC IN PLACE WITH YELLOW CLEAR OUTPUT. ALL SAFETY PRECAUTIONS APPLIED.SR UP X3, CALL LIGHT WITHIN EASY REACH, BED LOCKED AND IN LOWEST POSITION,CONTINUE TO MONITOR .
--- NOTE | 2019-11-28 07:16 | NUR ---
ICU/RN REPORT GIVEN TO ESAU FOR CONTINUATION OF CARE. PATIENT STABLE IN BED WITH HR AT 92 ON BIPAP SATURATING AT 100%.
[2019-11-28] MEDS: POTASSIUM CL. PREMIX PERIPHER. 50 ML IV SCH ×6 (07:28→12:44)
--- NOTE | 2019-11-28 07:35 | NUR ---
RT Pt taken off BiPAP and placed on 3L nasal cannula, tolerating well with adequate SpO2. Addendum: 11/28/19 at 0756 by GALLO MCRAE RT Amended: Links added.
[2019-11-28] MEDS: HEPARIN SODIUM, PORCINE 5000 UNITS/1 ML VIAL SQ SCH ×2 (08:34→21:27)
--- NOTE | 2019-11-28 10:00 | NUR ---
RN NOTES ORDER RECEIVED FOR SECOND SWALLOWING EVAL PER DR DAMICO .
[2019-11-28] MEDS: LINEZOLID RTU BAG 600 MG in PREMIX 1 EA IV SCH ×2 (11:33→21:27)
--- NOTE | 2019-11-28 15:00 | NUR ---
RN NOTES DR BORIS MUHAMMAD REGARDING HR 110 -120'S. CONTINUE TO MONITOR.
--- NOTE | 2019-11-28 17:15 | NUR ---
RN NOTES PHARMACY NOITFED REGARDING PHOS 1.8.
--- NOTE | 2019-11-28 17:23 | NUR ---
RN NOTED REPORT GIVEN TO RICHARD GARCÍA FOR CONTINUITY OF CARE .
[2019-11-28] MEDS ORDERED: NEUTRA PHOS 1 POWD.PACKET PO ONE (17:30)
[2019-11-28] MEDS ORDERED: NEUTRA PHOS 1 POWD.PACKET NG ONE (17:30)
--- NOTE | 2019-11-28 18:28 | NUR ---
RN CLOSING NOTES PT REMAINS A/OX1. ON ROOM AIR. NO RESPIRATORY DISTRESS NOTED. HOB ELEVATED. NO SIGNS OF PAIN NOTED. NGT IN PLACE. KEPT CLEAN AND DRY. REPOSITIONED Q2. BLE ELEVATED. KEPT COMFORTABLE. WILL ENDORSE FOR CONTINUITY OF CARE.
--- NOTE | 2019-11-28 20:46 | NUR ---
SENIOR ANALYST MARKET INTELLIGENCE REPORT GIVEN TO SHERINE GARCÍA FOR CONTINUITY OF CARE.
--- NOTE | 2019-11-28 20:47 | NUR ---
RECEIVED REPORT FROM SONIA GARCÍA FOR AMAN.
--- NOTE | 2019-11-28 23:53 | NUR ---
PT ON ROOM AIR NO RESP DISTRESS.
[2019-11-29] VITALS (23 sets, daily range): BP systolic 101–143; BP diastolic 57–79
[2019-11-29] MEDS: MEROPENEM 500 MG in IV NS 0.9% 100 ML IV SCH ×2 (01:15→12:29)
[2019-11-29] MEDS: IV D5W 1,000 ML IV PRN ×2 (01:25→10:25)
[2019-11-29] MEDS ORDERED: IV NS 0.9% 250 ML IV PRN (02:00)
[2019-11-29 04:14] LABS: BASOPHILS % (AUTO) 0.1 % (0.0-2.0); EOSINOPHILS % (AUTO) 0.2 % (0.0-6.0); HEMATOCRIT 30 % (33-45); HEMOGLOBIN 9.8 g/dL (11.5-14.8); LYMPHOCYTES # (AUTO) 1.5 /CMM (0.8-4.8); LYMPHOCYTES % (AUTO) 26.2 % (20.0-44.0); MEAN CORPUSCULAR HGB CONC 32 g/dl (31.0-36.0); MEAN CORPUSCULAR VOLUME 96 fL (82-100); MONOCYTES # (AUTO) 0.6 /CMM (0.1-1.30); MONOCYTES % (AUTO) 9.5 % (2.0-12.0); NEUTROPHILS # (AUTO) 3.7 /CMM (1.8-8.9); PLATELET COUNT (AUTO) 138 /CMM (150-450); RED BLOOD CELL COUNT(AUTO) 3.16 MIL/uL (4.0-5.2); WHITE BLOOD COUNT (AUTO) 5.8 K/uL (4.3-11.0)
[2019-11-29 04:30] LABS: CALCIUM, SERUM 8.6 mg/dL (8.5-10.1); CARBON DIOXIDE 27 mmol/L (21-32); CHLORIDE 110 mmol/L (98-107); CREATININE 0.7 mg/dL (0.6-1.3); GLUCOSE 173 mg/dL (74-106); MAGNESIUM 1.9 mg/dL (1.8-2.4); PHOSPHORUS 1.6 mg/dL (2.5-4.9); POTASSIUM 3.7 mmol/L (3.5-5.1); SODIUM SERUM 144 mmol/L (136-145); UREA NITROGEN, BLOOD 30 mg/dL (7-18)
--- NOTE | 2019-11-29 07:05 | NUR ---
RN NOTES RECEIVED PT ON BED, ALERT , DOES NOT FOLLOW COMMAND, PT IS CONTRACTED, ON RA , O2 SAT WNL, NO RESPIRATORY DISTRESS NOTED, NO RESPIRATORY DISTRESS, NOTED, SR , HR IN 90'S , FOLY DRAINING TO GRAVITY, LT HAND IV G 18 AND RFA G 22, PATENT AND FLUSHING. CURRENTLY D5W INFUSING AT 50ML/HR. FC IN PLACE WITH YELLOW CLEAR OUTPUT. ALL SAFETY PRECAUTIONS APPLIED.SR UP X3, CALL LIGHT WITHIN EASY REACH, BED LOCKED AND IN LOWEST POSITION,CONTINUE TO MONITOR .
--- NOTE | 2019-11-29 07:15 | NUR ---
RN NOTES NO CHANGES NOTED DURING SHIFT, BREATHING NORMAL NO SOB NO RESPIRATORY DISTRESS NOTED. ON RA SATURATING WELL 98-99%. ROUTINE MEDICATIONS WERE GIVEN ALONG WITH PRN TYLENOL FOR TEMP 100.1 NOTED TO BE EFFECTIVE TEMP CAME DOWN TO 98.2. LT NARE NGT IN PLACE CLAMPED. RFA/LH IV INTACT FLUID IS RUNNING WELL. F/C INTACT YELLOW URINE RUNNING VIA GRAVITY. BED BATH GIVEN WOUND CARE DONE PATIENT TOLERATED WELL. ALL NEEDS ATTENDED. SAFETY MAINTAINED, CALL LIGHT WITHIN REACH. ENDORSE TO AM NURSE FOR AMAN.
[2019-11-29] MEDS: LINEZOLID RTU BAG 600 MG in PREMIX 1 EA IV SCH ×2 (08:24→21:01)
[2019-11-29 08:29] LABS: ABG BASE EXCESS 0.5 mmol/L; ABG OXYGEN SATURATION 96.9 % (92.0-98.5); ABG PCO2 31.1 mmHg (35.0-45.0); ABG PH 7.493 (7.350-7.450); ABG PO2 80.3 mmHg (75.0-100.0); AaDO2 32.2 mmHg; COHb 0.8 % (0.5-1.5); MetHb 0.3 % (0.0-1.5); O2Hb 95.8 % (94.0-97.0); SITE, ABG Right Radial; VENT MODE, BG room air
[2019-11-29] MEDS ORDERED: CLONIDINE HCL 0.1 MG TABLET NG PRN (10:16)
[2019-11-29] MEDS ORDERED: ZOLPIDEM TARTRATE 5 MG TABLET NG PRN (10:16)
[2019-11-29] MEDS ORDERED: MAG HYDROX/AL HYDROX/SIMETH 30 ML UDC NG PRN (10:22)
[2019-11-29] MEDS ORDERED: MAGNESIUM HYDROXIDE 30 ML UDC NG PRN (10:23)
[2019-11-29] MEDS ORDERED: ACETAMINOPHEN 650 MG/20.3 ML UDC NG PRN (10:30)
--- NOTE | 2019-11-29 12:00 | NUR ---
RN NOTES PLT 138, OK TO GIVE HEPARIN SQ PER DR HERNANDEZ ORDER .
[2019-11-29] MEDS: HEPARIN SODIUM, PORCINE 5000 UNITS/1 ML VIAL SQ SCH ×2 (12:28→20:43)
--- NOTE | 2019-11-29 12:30 | NUR ---
RN NOTES PT FAILED SWALLOWING EVAL, DR HERNANDEZ NOTIFED, ORDER RECEIVED FOR VIDEO SWALLOWING EVAL PER SPEECH RECOMMENDATION PER MD ORDER .
[2019-11-29] MEDS ORDERED: NEUTRA PHOS 1 POWD.PACKET NG ONE (14:00)
--- NOTE | 2019-11-29 18:30 | NUR ---
RN NOTES NO SIGNIFICANT CHANGES NOTED ON THIS SHIFT, VSS STABLE, PT STILL NPO, IVF D5W AT 50CC/HR RUNNING , ANDERSON DRAINING TO GRAVITY , SR UP x3, CALL LIGHT WITHIN EASY REACH, BED LOCKED AND IN LOWEST POSITION, WILL ENDORSE TO EXTENSION SPECIALIST NURSE FOR CONTINUITY OF CARE .
--- NOTE | 2019-11-29 19:30 | NUR ---
RN NOTES RECEIVED PATIENT IN BED ALERT, UNABLE TO FOLLOW COMMAND. BREATHING NORMAL NO SOB NO RESPIRATORY DISTRESS NOTED. PATIENT IS CONTRACTED. TELE MONITOR READING SR IN 80'S. PATIENT STILL NPO, LT NARE NGT IN PLACE AND CLAMPED. IV SITES INTACT AND FLUSHES WELL. ABD SOFT AND NON DISTENDED. F/C INTACT YELLOW URINE RUNNING VIA GRAVITY NO SEDIMENTATION NOTED. SAFETY MEASURES IN PLACE, SIDE RAILS UP, CALL LIGHT WITHIN REACH. WILL CONT TO MONITOR FOR AMAN.
[2019-11-30] VITALS (14 sets, daily range): BP systolic 103–137; BP diastolic 54–81
[2019-11-30] MEDS: MEROPENEM 500 MG in IV NS 0.9% 100 ML IV SCH ×2 (01:02→12:45)
[2019-11-30 04:01] LABS: BASOPHILS % (AUTO) 0.1 % (0.0-2.0); EOSINOPHILS % (AUTO) 1.1 % (0.0-6.0); HEMATOCRIT 30 % (33-45); HEMOGLOBIN 9.8 g/dL (11.5-14.8); LYMPHOCYTES # (AUTO) 1.2 /CMM (0.8-4.8); LYMPHOCYTES % (AUTO) 27.8 % (20.0-44.0); MEAN CORPUSCULAR HGB CONC 33 g/dl (31.0-36.0); MEAN CORPUSCULAR VOLUME 96 fL (82-100); MONOCYTES # (AUTO) 0.3 /CMM (0.1-1.30); MONOCYTES % (AUTO) 7.2 % (2.0-12.0); NEUTROPHILS # (AUTO) 2.8 /CMM (1.8-8.9); NEUTROPHILS % (AUTO) 63.8 % (43.0-81.0); PLATELET COUNT (AUTO) 142 /CMM (150-450); RED BLOOD CELL COUNT(AUTO) 3.12 MIL/uL (4.0-5.2); WHITE BLOOD COUNT (AUTO) 4.4 K/uL (4.3-11.0)
[2019-11-30 04:34] LABS: CALCIUM, SERUM 8.3 mg/dL (8.5-10.1); CARBON DIOXIDE 26 mmol/L (21-32); CHLORIDE 106 mmol/L (98-107); CREATININE 0.5 mg/dL (0.6-1.3); GLUCOSE 95 mg/dL (74-106); MAGNESIUM 1.7 mg/dL (1.8-2.4); PHOSPHORUS 2.5 mg/dL (2.5-4.9); POTASSIUM 3.2 mmol/L (3.5-5.1); SODIUM SERUM 141 mmol/L (136-145); UREA NITROGEN, BLOOD 16 mg/dL (7-18)
[2019-11-30] MEDS: IV D5W 1,000 ML IV PRN (05:11)
--- NOTE | 2019-11-30 07:43 | NUR ---
RN NOTES PATIENT IS MORE ALERT AND AWAKE ABLE TO VERBALIZED NEEDS. BREATHING NORMAL NO S/S OF ACUTE DISTRESS NOTED. VITAL SIGNS STABLE. STILL NPO, ORAL CARE PROVIDED. BED BATH GIVEN WOUND CARE PROVIDED TOLERATED WELL. KEPT CLEAN DRY AND COMFORTABLE. F/C INTACT YELLOW URINE TO GRAVITY.SAFETY MEASURES IN PLACE, SIDE RAILS UP, CALL LIGHT WITHIN REACH. WILL ENDORSE TO AM NURSE FOR AMAN
--- NOTE | 2019-11-30 08:00 | NUR ---
RN OPENING NOTES RECEIVED PATIENT RESTING IN BED, A/OX1, ON ROOM AIR SATURATING WELL AT99%, NO SIGNS OF ACUTE DISTRESS NOTED. ON TELE MONITOR WITH SR NOTED, HR AT 80BPM. LEFT NGT IS INTACT, CHECKED PLACEMENT VIA AUSCULTATION, PATENT AND FLUSHED WITH WATER. PATIENT IS NPO, NGT CLAMPED. PATIENT IS ASKING FOR WATER, EXPLAINED THAT SWALLOW EVAL IS GOING TO HAPPEN LATER TODAY. ANDERSON CATHETER IS IN PLACE, DRAINING ROSIBEL URINE. IV'S INTACT, PATENT, AND FLUSHED WELL, NO SIGNS OF INFECTION NOTED. SAFETY MAINTAINED, CALL LIGHT WITHIN REACH, WILL CONTINUE TO MONITOR CLOSELY.
[2019-11-30] MEDS: HEPARIN SODIUM, PORCINE 5000 UNITS/1 ML VIAL SQ SCH ×2 (08:56→21:02)
[2019-11-30] MEDS: LINEZOLID RTU BAG 600 MG in PREMIX 1 EA IV SCH ×2 (08:56→20:59)
[2019-11-30] MEDS ORDERED: POTASSIUM CHLORIDE 20 MEQ POWDER PACKET GT SCH (09:00)
--- NOTE | 2019-11-30 10:30 | NUR ---
POT RUNNER NOTE TRANSFERRED PATIENT TO [facility] ROOM 105, PATIENT TRANSFERRED USING ACLS PROTOCOL, REMAINED STABLE DURING TRANSFER, ON ROOM AIR WITH NO RESPIRATORY DISTRESS NOTED. ALL PATIENT NEEDS MET, HELD MAGNESIUM DUE TO PATIENT BEING TRANSFERRED, ENDORSED TO TODD RN, SHE WILL HANG MAGNESIUM SOON POSSIBLE. SAFETY WAS MAINTAINED, CALL LIGHT WITHIN REACH, PLACED PATIENT ON SALES MANAGER [place], ENDORSED TO TODD FOR CONTINUITY OF CARE.
[2019-11-30] MEDS: Magnesium 1GM/D5W 100ML PREMIX 100 ML IV SCH ×2 (10:38→11:15)
--- NOTE | 2019-11-30 10:50 | NUR ---
TRANSFER NOTE RECEIVED PATIENT FROM ICU TRANSFERRED TO ROOM 105. ON ROOM AIR NO SIGNS OF DISTRESS. AO X1 OPENS EYES. TELE MONITOR SR 70s. NOTED WITH NGT CLAMPED. ANDERSON CATH IN PLACE. RFA #22 RUNNING D5W @ 50/HR AND LHAND #18 FLUSHES WELL. RADIOLOGY CALLED FOR THE BARIUM TEST INFORMED PATIENT FAILED SWALLOW EVAL YESTERDAY. SAFETY MEASURES REINFORCED. CALL LIGHT WITHIN REACH. BED LOCKED AND ON LOWEST POSITION. WILL CONT TO MONITOR.
--- NOTE | 2019-11-30 11:51 | NUR ---
DONE WITH BARIUM TEST ASSISTED PATIENT BACK TO ROOM 105 VIA ACLS PROTOCOL.
[2019-11-30] MEDS ORDERED: BARIUM SULFATE 240 ML ORAL.SUSP PO ONE (11:54)
[2019-11-30] MEDS ORDERED: BARIUM SULFATE 148 GM SUSP.RECON PO ONE (11:54)
--- NOTE | 2019-11-30 12:19 | NUR ---
SPEECH THERAPIST RECOMMENDED PUREE DIET NECTAR THICK LIQUIDS. INFORMED DR. HERNANDEZ. PER DR. MARY ANDERSON.
--- NOTE | 2019-11-30 12:51 | NUR ---
MAG 1GM NEEDS TO BE ENTERED A NEW ORDER.
[2019-11-30] MEDS ORDERED: Magnesium 1GM/D5W 100ML PREMIX PIGGYBACK IV ONE (13:00)
[2019-11-30] MEDS ORDERED: MGSO4/D5W 100 ML IV SCH (14:00)
--- NOTE | 2019-11-30 15:36 | NUR ---
TELE/RN NOTE Received report from RAQUEL Worrell. Patient is lying comfortably in bed, A&O x1. No s/s of pain/discomfort at this time. Breathing even and non-labored on RA, no SOB noted. No respiratory or cardiac distress noted. On tele monitor, reading SR HR 83. IV access located on RFA #22, patent and intact, running D5W @ 50 mls/hr. LH #18, patent and intact, and flushing well. No s/s of infiltration, infection, or bleeding noted on sites. Sensation from all peripheral extremities intact. Hanley in place, draining yellow urine output well. Fall precautions maintained. Will continue with current plan of care.
--- NOTE | 2019-11-30 15:36 | NUR ---
PATIENT IN BED RESTING NO SIGNS OF DISTRESS. ENDORSED TO BHARAT.
--- NOTE | 2019-11-30 15:36 | NUR ---
TELE/RN NOTE Per Dr. Rex Sarabia, discontinue NGT. Order carried out.
--- NOTE | 2019-11-30 16:40 | NUR ---
TELE/RN NOTE Notified Dr. Sarabia of pt's potassium level of 3.2, ordered KDUR 40 meq PO. Order carried out.
[2019-11-30] MEDS ORDERED: POTASSIUM CHLORIDE 20 MEQ TAB.PRT.SR PO ONE ×2 (17:00)
--- NOTE | 2019-11-30 18:37 | NUR ---
TELE/RN CLOSING NOTE Patient resting in bed, remains stable. All needs are met and attended to. VSS, Afebrile, no s/s of pain/discomfort noted. Breathing even and non-labored on RA. No cardiac distress. On tele monitor, reading SR 81. IV accesses remain patent and intact, no s/s of infiltration, infection, or bleeding noted, running D5W @ 50 ml/hr. Han[place] in place, draining 200 cc of clear yellow urine well. Turned and repositioned every 2 hours. Fall and aspiration precautions maintained. Will endorse to casino shift manager nurse.
--- NOTE | 2019-11-30 19:20 | NUR ---
RN OPENING NOTE RECEIVED PATIENT AWAKE IN BED. ALERT AND ORIENTED X 2. DEMENTED BUT COOPERATIVE. NEEDS REDIRECTION AND REMINDERS. ON ROOM AIR, NO SIGNS OF SHORTNESS OF BREATH OR RESPIRATORY DISTRESS NTOED. BREATHING IS EVEN AND UNLABORED. ON TELE MONITOR FULL CODE READING SINUS RHYTHM 66. ANDERSON CATHETER IN PLACE, DRAINING CLEAR LIGHT YELLOW URINE. FREE OF SEDIMENTS. PATIENT IS BED BOUND CONTRACTED AT THE ARMS. LEFT HAND #18 IV SITE LEAKING, WHEN FLUSHED REMOVED WITH CATHETER INTACT. HELD DRESSING FOR 1 MINUTE. EDEMA NOTED ON LEFT HAND. PITTING +2. RIGHT FOREARM #22 INFUSING WITH D5W @ 50ML/HR ORDERED. NO SIGNS OF INFILTRATION NOTED AT THIS TIME. SACRAL WOUND NOTED, BLACK RED AND PINK NO DRAINAGE NO ODOR, REINFORCED WITH OIL EMULSION AND MEPILEX. BILATERAL FEET EDEMATOUS WITH +2 PITTING EDEMA. PUREE W/NECTAR , THICKENED FLUIDS, AND CRUSHED MEDS NOTED. BED IS LOCKED IN LOWEST POSITION WITH BED ALARM ON. CALL LIGHT WITHIN EASY REACH. WILL CONTINUE TO MONITOR.
[2019-12-01] VITALS: BP 124/57
--- NOTE | 2019-12-01 00:10 | NUR ---
PT IS CONFUSED RELATED HISTORY OF DEMENTIA. OFTEN SPEAKS OUT LOUD CALLING FOR HER GRANDMA OR OTHER TIMES VERBALIZES "STOP HURTING ME" WHEN NO ONE IS PRESENT IN THE ROOM. UPON ENTERING THE ROOM AND BEING ASKED QUESTIONS, PT DOES NOT REMEMBER SPEAKING AND REMAINS CONFUSED. PT REQUIRES FREQUENT REORIENTATION
[2019-12-01] MEDS: MEROPENEM 500 MG in IV NS 0.9% 100 ML IV SCH ×2 (00:59→12:19)
[2019-12-01 04:00] VITALS: BP 107/53
[2019-12-01] MEDS: IV D5W 1,000 ML IV PRN (05:09)
[2019-12-01 06:26] LABS: BASOPHILS % (AUTO) 0.3 % (0.0-2.0); EOSINOPHILS % (AUTO) 0.7 % (0.0-6.0); HEMATOCRIT 29 % (33-45); HEMOGLOBIN 9.1 g/dL (11.5-14.8); LYMPHOCYTES # (AUTO) 1.3 /CMM (0.8-4.8); LYMPHOCYTES % (AUTO) 34.8 % (20.0-44.0); MEAN CORPUSCULAR HGB CONC 32 g/dl (31.0-36.0); MEAN CORPUSCULAR VOLUME 98 fL (82-100); MONOCYTES # (AUTO) 0.3 /CMM (0.1-1.30); MONOCYTES % (AUTO) 7.4 % (2.0-12.0); NEUTROPHILS # (AUTO) 2.2 /CMM (1.8-8.9); NEUTROPHILS % (AUTO) 56.8 % (43.0-81.0); PLATELET COUNT (AUTO) 133 /CMM (150-450); RED BLOOD CELL COUNT(AUTO) 2.94 MIL/uL (4.0-5.2); WHITE BLOOD COUNT (AUTO) 3.8 K/uL (4.3-11.0)
[2019-12-01 06:53] LABS: CALCIUM, SERUM 8.2 mg/dL (8.5-10.1); CARBON DIOXIDE 22 mmol/L (21-32); CHLORIDE 108 mmol/L (98-107); CREATININE 0.4 mg/dL (0.6-1.3); GLUCOSE 84 mg/dL (74-106); MAGNESIUM 2.4 mg/dL (1.8-2.4); PHOSPHORUS 2.1 mg/dL (2.5-4.9); POTASSIUM 4.3 mmol/L (3.5-5.1); SODIUM SERUM 139 mmol/L (136-145); UREA NITROGEN, BLOOD 10 mg/dL (7-18)
--- NOTE | 2019-12-01 07:25 | NUR ---
RN CLOSING NOTES PT IS RESTING IN BED. TALKING. ON ROOM AIR TOLERATING WELL. NO SIGNS OF SHORTNESS OF BREATH OR RESPIRATORY DISTRESS. BREATHING IS EVEN AND UNLABORED. PT STILL CONTRACTED. HAND AND BILATERAL FEET STILL EDEMATOUS AT THIS TIME. IV SITE OF RIGHT FOREARM AND RIGHT HAND BOTH PATENT AND FLUSHED. NO SIGNS OF INFILTRATION NOTED. HEAD OF BED IS RAISED. BED IS LOCKED IN LOWEST POSITION WITH BED ALARM ON. CALL LIGHT WITHIN REACH. ENDORSED TO ONCOMING SHIFT FOR CONTINUATION OF CARE. Addendum: 12/01/19 at 0734 by KALEIGH GREEN RN PT IS NSR ON TELE MONITOR HEART RATE OF 85 AT THIS TIME
[2019-12-01 08:00] VITALS: BP 133/61
--- NOTE | 2019-12-01 08:00 | NUR ---
MANAGER EMS NOTE PATIENT IN BED AWAKE ALERT ,ORIENTED X1, ON TELE MONITOR SR HR 89, WITH ANDERSON CATH TO GRAVITY WITH YELLOW COLOR URINE , BOTH FEET WITH EDEMA ,KEEP ELEVATED TOLERATED,ON RA NO SOB NOTED AT THIS TIME,SATURATION 100%, ON IVF ORDERED ,BOTH HL RT HAND AND RT FA INTACT AND FLUSHED WELL BED IN ,LOWEST AND LOCKED POSITION , CALL LIGHT WITHIN REACH, WILL CONT TO MONITOR
[2019-12-01] MEDS: HEPARIN SODIUM, PORCINE 5000 UNITS/1 ML VIAL SQ SCH (08:23)
[2019-12-01] MEDS ORDERED: LINEZOLID 600 MG TABLET PO SCH (09:00)
--- NOTE | 2019-12-01 09:42 | NUR ---
WELT STITCHER NOTE ST AT BEDSIDE SWALLOW EVAL DONE, CONT WITH PUREE DIET
--- NOTE | 2019-12-01 09:57 | NUR ---
COMMUNITY HEALTH WORKER NOTE PER DR ANABELA MARCELINO NEEDED RESCUE ,WILL F\U WITH RT
[2019-12-01] MEDS ORDERED: NEUTRA PHOS 1 POWD.PACKET PO SCH (10:00)
[2019-12-01] MEDS ORDERED: K PHOS NEUTRAL 250 MG TABLET PO ONE (11:00)
[2019-12-01 12:00] VITALS: BP 128/72
--- NOTE | 2019-12-01 12:13 | NUR ---
DESKTOP SPECIALIST NOTES PT REFUSING LUNCH AND NEUTRA PHOS DESPITE EXPLANATION. DR. HERNANDEZ NOTIFIED , STILL SAID OKAY TO DISCHARGE TO SNF
--- NOTE | 2019-12-01 12:36 | NUR ---
LAMINATION SPINNER NOTE DR HAJI NOTIFIED THAT PATIENT REFUSING NEUTRA PHOS NO NEW ORDER AT THIS TIME
--- NOTE | 2019-12-01 13:50 | NUR ---
telecommunications analyst note called to snf spoke with mega mckeon, report given
--- NOTE | 2019-12-01 13:54 | NUR ---
DAUGHTER NOTIFIED ABOUT DISCHARGE. LEFT A VOICEMAIL
--- NOTE | 2019-12-01 15:32 | NUR ---
telecommunications equipment installer note ambulance arrived report given both iv hl intact on rt hand and rt fa intact , no s\s infection noted, tele removed, taken to snf with stable condition Addendum: 12/01/19 at 1637 by NALINI EMERSON RN no belonging noted
== END 2019-12-01 15:19 | DRG 388 ==
LOC: ER 10:32 → TELE2 14:47 → TELE 11-25 18:18 → ICU 11-27 02:41 → TELE1 11-30 10:21
PROVIDERS: ADMIT Student in an Organized Health Care Education/Training Program
PROC: 5A09357 Assistance with Respiratory Ventilation, Less than 24 Consecutive Hours, Continuous Positive Airway Pressure (ICD-10-PCS; principal; 2019-11-27)
DX: K56.609 Unspecified intestinal obstruction, unspecified as to partial versus complete obstruction (principal); A41.9 Sepsis, unspecified organism; J69.0 Pneumonitis due to inhalation of food and vomit; N17.0 Acute kidney failure with tubular necrosis; J96.01 Acute respiratory failure with hypoxia; J96.02 Acute respiratory failure with hypercapnia; G93.41 Metabolic encephalopathy; I50.22 Chronic systolic (congestive) heart failure; J98.11 Atelectasis; N39.0 Urinary tract infection, site not specified; E87.4 Mixed disorder of acid-base balance; Z16.24 Resistance to multiple antibiotics; E87.0 Hyperosmolality and hypernatremia; K56.7 Ileus, unspecified; E86.0 Dehydration; I11.0 Hypertensive heart disease with heart failure; K21.9 Gastro-esophageal reflux disease without esophagitis; Z79.899 Other long term (current) drug therapy; E87.5 Hyperkalemia; E78.5 Hyperlipidemia, unspecified; D64.9 Anemia, unspecified; F03.90 Unspecified dementia, unspecified severity, without behavioral disturbance, psychotic disturbance, mood disturbance, and anxiety; G47.00 Insomnia, unspecified; M19.90 Unspecified osteoarthritis, unspecified site; F41.9 Anxiety disorder, unspecified; F20.9 Schizophrenia, unspecified; I70.0 Atherosclerosis of aorta; F32.9 Major depressive disorder, single episode, unspecified; N28.1 Cyst of kidney, acquired; L89.156 Pressure-induced deep tissue damage of sacral region; B96.89 Other specified bacterial agents as the cause of diseases classified elsewhere; K83.8 Other specified diseases of biliary tract
CPT/HCPCS: 36415; 36600; 71045-TC; 74230-TC; 74250-TC; 76700-TC; 80048-TC; 80053-TC; 80061-TC; 80076-TC; 81000-TC; 82803-TC; 83605-TC; 83690-TC; 83735-TC; 84100-TC; 84443-TC; 84484-TC; 85025-TC; 85730-TC; 87040-TC; 87081-TC; 87086-TC; 87186-TC; 92526; 92611-TC; 94799-TC; 99082-TC; A4216; A6253; A6403; G0378; J1644; J1940; J2020; J2185; J2270; J2405; J2543; J3475; J3480; J3490; J7030; J7040; J7050; J7060; J7070; Q9963; U0003-CS